=== PATIENT | female | born 1955 | race Caucasian/White ===

== ENCOUNTER → 2019-09-22 17:04 | Outpatient (BNVA) | payer BC, SELFPAY | PROVIDERS: Family Provider Nurse Practitioner; PCP Nurse Practitioner; Visit Provider Nurse Practitioner Family | DX: E11.9 Type 2 diabetes mellitus without complications (principal); E55.9 Vitamin D deficiency, unspecified; J40 Bronchitis, not specified as acute or chronic; I25.10 Atherosclerotic heart disease of native coronary artery without angina pectoris; E78.5 Hyperlipidemia, unspecified; I10 Essential (primary) hypertension | CPT/HCPCS: 80053; 80061; 82044; 82306; 83036; 85025 ==

== ENCOUNTER 2020-01-11 08:25 | Outpatient (CLI) | payer BC, SELFPAY ==
--- NOTE | 2020-01-11 08:37 | CT_ITS ---
WS: [id number] CT NECK TECHNIQUE: Contrast-enhanced CT of the neck with coronal and sagittal reformatted images. CLINICAL INFORMATION: R SUBMANDIBULAR MASS COMPARISON: None. DLP: 629.[address] scans at [facility] use at least one of these dose optimization techniques: automat ed exposure control; mA and/or kV adjustment per patient size (includes targeted exams where dose is matched to clinical indication); or iterative reconstruction. FINDINGS: Dental artifact significantly degrades images of the tongue base. Heterogeneously enhancing right submandibular space mass posteriorly measuring 1.7 x 2.1 x 3.2 cm AP by transverse by craniocaudal. This is posterior to the right submandibular gland and anterior to the right sternocleidomastoid. Mass lesion demonstrates heterogeneous enhancement with internal low-atte nuation change likely necrosis.Findings are consistent with malignancy. Partially visualized enhancement in the right palatine tonsil only partially evaluated due to dental artifact. Recommend direct visualization. Associated mass effect in the adjacent pharynx with bluntin g of the right vallecula. A few additional enlarged and enhancing right cervical chain lymph nodes level 2, level 3, and jd edwards consultant ior triangle. Additional prominent right supraclavicular and thoracic inlet lymph nodes. No definite left-sided cervical lymphadenopathy. Enlarged lymph nodes in the anterior mediastinumperibronchial and lymph nodes. Enlarged AP window lym ph nodes partially visualized. Largest anterior mediastinal lymph node measuring 13 mm. Mastoid air cells are well aerated. Paranasal sinuses are well aerated. Normal epiglottis. Normal par apharyngeal fat. Normal glottic and subglottic airway. Moderate spondylitic changes cervical spine. D isc osteophyte complex C4-5 with moderate central canal stenosis. Prior sternotomy. CT/CT neck w con* [id number] IMPRESSION: 1. Necrotic heterogeneously enhancing malignant-appearing lymph node/mass in t he right neck posterior submandibular space. Mass measures 2.1 x 1.7 x 3.2 CM. 2. Heterogeneous enhancement partially visualized in the right palatine tonsil fossa extending into the vallecula. Associated [id number]-myla mass effect on th e adjacent pharynx. This is only partially visualized due to dental artifact. R ecommend ENT consultation and direct visualization. 3. Prominent enhancing increased attenuation right cervical chain lymph nodes level 2, level 3, and posterior triangle extending to the thoracic inlet the la rgest measuring 8 to 9 mm suspicious for metastatic disease. 4. No definite enlarged left cervical lymph nodes. 5. Enlarged anterior mediastinal, thoracic inlet, AP window, and paratracheal lymph nodes measuring up to 13 mm partially visualized suspicious for metastati c disease. Chest CT could be obtained for further evaluation.
[2020-01-11 09:11] LABS: Blood Urea Nitrogen 10 mg/dL (8-23); Glomerular Filtration Rate 72.4 mL/min (90-130)
[2020-01-11] MEDS: iohexol 300 mg/mL 100 mL Btl IV (09:24)
== END 2020-01-11 08:26 | disposition home or self-care (01) ==
LOC: RADWPI 08:31 → RAD 08:39
PROVIDERS: Family Provider Nurse Practitioner; PCP Nurse Practitioner; Visit Provider Internal Medicine
DX: R22.1 Localized swelling, mass and lump, neck (principal)
CPT/HCPCS: 36415; 70491; 82565; 84520

== ENCOUNTER → 2020-02-24 11:22 | Outpatient (BNVA) | payer BC, SELFPAY | PROVIDERS: Family Provider Nurse Practitioner; PCP Nurse Practitioner; Visit Provider Nurse Practitioner Family | DX: E11.9 Type 2 diabetes mellitus without complications (principal) | CPT/HCPCS: 80053; 80061; 83036; 85025 ==

== ENCOUNTER → 2020-03-15 10:27 | Outpatient (BNVA) | payer BC, SELFPAY | PROVIDERS: Family Provider Nurse Practitioner; PCP Nurse Practitioner; Visit Provider Nurse Practitioner Family | DX: N30.01 Acute cystitis with hematuria (principal); R35.0 Frequency of micturition | CPT/HCPCS: 80053; 81003; 87077; 87086; 87186 ==

== ENCOUNTER → 2020-08-16 11:16 | Outpatient (BNVA) | payer BC, SELFPAY | PROVIDERS: Family Provider Nurse Practitioner; PCP Nurse Practitioner; Visit Provider Internal Medicine Cardiovascular Disease | DX: E11.65 Type 2 diabetes mellitus with hyperglycemia (principal); Z79.4 Long term (current) use of insulin; E55.9 Vitamin D deficiency, unspecified | CPT/HCPCS: 80053; 80061; 82043; 82306; 83036; 84443; 85025 ==

== ENCOUNTER 2020-09-12 12:26 | Emergency (ER) | payer OTHER, SELFPAY ==
[2020-09-12 12:35] VITALS: BP 113/73; PULSE 72; RESP 14; TEMP 36.7; O2SAT 99; BMI 24.6
--- NOTE | 2020-09-12 15:34 | CT_ITS ---
WS: [id number] CT HEAD NONCONTRAST HISTORY: dizzy TECHNIQUE: Contiguous axial imaging performed through the brain in 2.5 mm imaging. Bone and soft tiss ue windows. Sagittal and coronal reformats reviewed. All CT scans at [facility] use at le ast one of these dose optimization techniques: automated exposure control; mA and/or kV adjustment pe r patient size (includes targeted exams where dose is matched to clinical indication); or iterative r econstruction. DLP: 806.88 mGy.cm COMPARISON: None available. No acute intracranial hemorrhage, midline shift or mass effect. No atrophy or prior infarcts or herniation. Mild chronic microvascular ischemic disease. Ventricles: Normal size with no hydrocephalus. Calcifications in the distal vertebral arteries and intracranial carotid arteries. Paranasal sinuses: As visualized are clear. Mastoid air cells: Well pneumatized. Calvarium and scalp: Skull is intact with no soft tissue edema or swelling. CT/CT head wo con* [id number] IMPRESSION: Negative noncontrast head CT. No acute intracranial hemorrhage or edema. No hydrocephalus.
--- NOTE | 2020-09-12 15:34 | ECG_ITS ---
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1955 Requested By: Svetlana Daniels Order Number: [id number] Reading MD: AVA RICHARDS Measurements Intervals [place] Rate: 69 P: 53 KS: 137 QRS: -19 QRSD: 91 T: 9 QT: 382 QTc: 410 Interpretive Statements SINUS RHYTHM POSSIBLE ANTERIOR MYOCARDIAL INFARCTION , PROBABLY OLD [30 ms Q WAVE IN V3/V4, OR R < 0.2 mV IN V4] No previous ECG available for comparison Electronically Signed On 09-12-2020 19:28:34 CISTERN ROOM WORKING SUPERVISOR by AVA RICHARDS [id number]
--- NOTE | 2020-09-12 15:36 | W.ED.DIZZY ---
HPI - Dizziness General: Chief Complaint: Dizziness Stated Complaint: DIZZY, NAUSEA ONGOING Time Seen by Provider: 09/12/20 12:29 Source: patient Mode of arrival: ambulatory Limitations: no limitations History of Present Illness: HPI Narrative: 64-year-old female who states she has been having dizziness for the last few months. She states that her vertigo is much worse with sudden movements. She states she has had 2 episodes today that is caused her vomiting. She states at rest she has no dizziness. She states this is typically improved with meclizine. She states she is concerned that she had more episodes today than typical. She denies any headache. Patient denies any chest pain. Associated symptoms: Reports nausea and vomiting; Denies chest pain or chills Review of Systems Const: Denies: fever(s), chills, body aches or change in appetite Eyes: Denies: blurry vision or eye discomfort ENMT: Denies: throat pain or dental pain Card: Denies: chest pain Resp: Denies: dyspnea GI: Reports: nausea and vomiting : Denies: dysuria Musc: Denies: neck pain or back pain Skin/Breast: Denies: rash Neuro: Reports: dizziness Psych: Denies: depression Anthony/Lymph: Denies: easy bruising All/Imm: Denies: urticaria PFSH ED PFSH: Medical History CAD (coronary artery disease) Diabetes mellitus Hyperlipidemia Vitamin D deficiency Surgical History Hx of CABG (~2010) Hx of tubal ligation Family History Mother Hypertension Social History Smoking and tobacco status: never smoked Second hand smoke exposure: No Alcohol intake: never Lives independently: Yes Household members: none Housing: House Marital status: / service: No Current occupational status: retired History of recent travel: No Current gender identity: Female Physical Exam Const: COMMON NORMALS: no acute distress, patient oriented x3 and healthy appearing HENMT: COMMON NORMALS: normocephalic and atraumatic HEAD & SCALP: normocephalic and atraumatic Eye: COMMON NORMALS: Equal, round and reactive pupils present and EOMs intact bilaterally PUPIL: Yes Equal, round and reactive pupils present Neck/C-Spine: COMMON NORMALS: full ROM and supple Chest: COMMONS NORMALS: normal inspection of the chest and normal palpation of entire chest wall Resp: COMMON NORMALS: normal respiratory effort, No retractions, No use of accessory muscles and clear to auscultation bilaterally AUSCULTATION: clear to auscultation bilaterally Cardio: COMMON NORMALS: regular rate, regular rhythm and No murmurs present (Cardio) RATE: regular rate RHYTHM: regular rhythm GI: COMMON NORMALS: Normal to inspection, nondistended, normoactive bowel sounds present, Soft to palpation, non-tender and no masses PALPATION: Yes Soft to palpation Extremity: COMMON NORMALS: normal to inspection and full ROM Neuro: COMMON NORMALS: patient oriented x3, moves all extremities and no focal motor deficits Psych: COMMON NORMALS: mental status grossly normal, Normal thought process present and cooperative THOUGHT PROCESS: Normal thought process present Skin: COMMON NORMALS: no rashes or lesions noted and no wounds GENERAL SKIN EXAM: no rashes or lesions noted Course Vital Signs: Vital signs: Vital Signs Temperature 98.0 F 09/12/20 12:35 Pulse Rate 79 09/12/20 18:03 Respiratory Rate 16 09/12/20 16:53 Blood Pressure 154/89 09/12/20 18:03 Pulse Oximetry 98 09/12/20 18:03 MDM - Dizziness MDM Narrative: Medical decision making narrative: Patient presents here with vertigo and does have a urinary tract infection. CT shows no signs of acute stroke and she has no symptoms that are strokelike. Her symptoms are more consistent with a peripheral cause of vertigo. This could be worsened by her UTI as well. We will start her on nausea medicine along with antibiotics. Patient is to return if worsening. Lab Data: Labs: Lab Results 09/12/20 09/12/20 09/12/20 Range/Units 16:25 16:25 16:50 WBC 7.8 (4.0-10.0) 10^3/ uL RBC 4.24 (4.1-5.3) 10^6/u L Hgb 13.1 (11.5-15.3) g/dL Hct 39.8 (37.0-47.0) % MCV 93.9 (81-99) fL MCH 30.9 (28.0-34.0) pg MCHC 32.9 (30.0-36.0) g/dL RDW 12.3 (12.1-15.1) % Plt Count 265 (130-400) 10^3/c mm MPV 9.5 (7.4-10.4) fL Neut % (Auto) 78.0 % Lymph % (Auto) 15.9 % [place] % (Auto) 5.2 % Eos % (Auto) 0.4 % Baso % (Auto) 0.4 % Neut # (Auto) 6.10 (1.8-7.7) 10^3/u L Lymph # (Auto) 1.2 (0.8-4.8) 10^3/u L [place] # (Auto) 0.4 (0.2-0.9) 10^3/u L Eos # (Auto) 0.0 (0.0-0.8) 10^3/u L Baso # (Auto) 0.0 (0.0-0.1) 10^3/u L Nucleated RBC % (a uto) 0 % Nucleated RBCs # 0.0 /100WBC Sodium 138 (136-145) mmol/L Potassium 4.2 (3.5-5.1) mmol/L Chloride 102 (98-107) mmol/L Carbon Dioxide 27 (22-29) mmol/L Anion Gap 13.2 (5-19) BUN 16 (8-23) mg/dL Creatinine 0.7 (0.5-0.9) mg/dL GFR Calculation 84.5 L (90-130) mL/min Glucose 225 H (65-115) mg/dL Calculated Osmolal ity 294 (285-295) mOsm/k g Calcium 9.5 (8.5-10.5) mg/dL Total Bilirubin 0.3 (0.15-1.2) mg/dL AST 30 (0-32) U/L ALT 21 (0-33) U/L Alkaline Phosphata se 93 (35-105) IU/L Total Protein 7.3 (6.6-8.7) g/dL Albumin 4.1 (3.5-5.2) g/dL Globulin 3.2 (1.3-4.6) g/dL Urine Color Yellow (Yellow) Urine Appearance Hazy A (CLEAR) Urine pH 5 (5-7) Ur Specific Gravit y 1.030 (1.005-1.030) Urine Protein Trace (Negative) Urine Glucose (UA) 2+ (Normal) Urine Ketones 1+ H (Negative) Urine Blood Neg (Negative) Urine Nitrate Negative (Negative) Urine Bilirubin 1+ H (Negative) Urine Urobilinogen 1 H (Negative) mg/dL Ur Leukocyte Margarita ase Trace H (Negative) Urine RBC 0-4 H (0-2) /hpf Urine WBC 10-15 H (0-5) /hpf Ur Squamous Epith Cells 0-4 H (0-5) /hpf Amorphous Sediment Not Reportable Urine Bacteria 4+ H (NONE) /hpf Hyaline Casts 0-4 H /lpf Urine Mucus 3+ /hpf Imaging Data^: CT Head: Attestation: I personally reviewed and interpreted this imaging study as follows: Radiologist's impression: [address] [address] [address] Scan Report Signed Patient: Veronika Burnette Unit #: [id number] : 1955 Age/Sex: 64 / F ADM Date: 09/12/20 Loc: ER Room/Bed: Attending Dr: Ordering Provider/Ordering MD: Svetlana Daniels MD Date of Service: 09/12/20 Procedure(s): CT head wo con* [id number] Accession Number(s): [id number] Report Number: [id number] WS: [id number] CT HEAD NONCONTRAST HISTORY: dizzy TECHNIQUE: Contiguous axial imaging performed through the brain in 2.5 mm imaging. Bone and soft tissue windows. Sagittal and coronal reformats reviewed. All CT scans at [facility] use at least one of these dose optimization techniques: automated exposure control; mA and/or kV adjustment per patient size (includes targeted exams where dose is matched to clinical indication); or iterative reconstruction. DLP: 806.88 mGy.cm COMPARISON: None available. No acute intracranial hemorrhage, midline shift or mass effect. No atrophy or prior infarcts or herniation. Mild chronic microvascular ischemic disease. Ventricles: Normal size with no hydrocephalus. Calcifications in the distal vertebral arteries and intracranial carotid arteries. Paranasal sinuses: As visualized are clear. Mastoid air cells: Well pneumatized. Calvarium and scalp: Skull is intact with no soft tissue edema or swelling. CT/CT head wo con* [id number] IMPRESSION: Negative noncontrast head CT. No acute intracranial hemorrhage or edema. No hydrocephalus. EKG Data^: EKG 1: Attestation: I personally reviewed and interpreted this EKG as follows: EKG interpretation date: 09/12/20 EKG interpretation time: 16:15 Interpretation: nsr hr [address] or t wave abnormalities qrs 91 qtc 401 Discharge Plan Discharge Patient Disposition: Home Clinical Impression: Vertigo Acute cystitis Qualifiers: Hematuria presence: without hematuria Qualified Code(s): N30.00 - Acute cystitis without hematuria Condition: Stable Prescriptions: New Keflex 500 mg capsule 500 mg PO Q6H 7 Days Qty: 28 RF: 0 ondansetron 4 mg tablet,disintegrating 4 mg PO TID PRN (Reason: nausea and vomiting) Qty: 14 RF: 0 No Action furosemide 20 mg tablet 20 mg PO DAILY PRN (Reason: edema) RF: 0 aspirin [Adult Low Dose Aspirin] 81 mg tablet,delayed release (DR/EC) 162 mg PO DAILY RF: 0 clopidogrel [Plavix] 75 mg tablet 75 mg PO DAILY Qty: 90 RF: 0 Farxiga 10 mg tablet 10 mg PO QAM Qty: 90 RF: 0 ergocalciferol (vitamin D2) [Vitamin D2] 1,250 mcg (50,000 unit) capsule 1,250 mcg PO .weekly Qty: 12 RF: 0 escitalopram oxalate 5 mg tablet See Rx Instructions .ROUTE .COMPLEX Qty: 90 RF: 0 Repatha SureClick 140 mg/mL pen injector 140 mg SUBCUT .EVERY 2 WEEKS Qty: 2 RF: 11 famotidine [Pepcid] 20 mg tablet 20 mg PO BID Qty: 180 RF: 0 glipizide 5 mg tablet See Rx Instructions .ROUTE .COMPLEX 90 Days Qty: 180 RF: 0 Lantus Solostar U-100 Insulin 100 unit/mL (3 mL) insulin pen 10 unit SUBCUT DAILY 90 Days Qty: 15 RF: 0 lisinopril 2.5 mg tablet See Rx Instructions .ROUTE .COMPLEX Qty: 90 RF: 0 metformin 1,000 mg tablet See Rx Instructions .ROUTE .COMPLEX Qty: 180 RF: 0 Discharge Orders: Discharge ED (Routine); Ordered 09/12/20 Ordered By: Svetlana Daniels Discharge Diet: Advance as tolerated Discharge Activity: Resume usual activity Patient Instructions: Vertigo (ED) Coding Level of Care Code ED Airplane Pilot Supervisor for Morena Fwdisha Exam Comprehensive
[2020-09-12] MEDS: meclizine 25 mg tablet 50 MG PO (15:40)
[2020-09-12 16:27] VITALS: BP 124/54; PULSE 71; O2SAT 100
[2020-09-12] MEDS: sodium chloride 0.9% 1,000 ML 999 ML IV (16:34)
[2020-09-12 16:36] LABS: Basophils % 0.4 %; Eosinophils % 0.4 %; Hematocrit 39.8 % (37.0-47.0); Hemoglobin 13.1 g/dL (11.5-15.3); Lymphocytes # 1.2 10^3/uL (0.8-4.8); Lymphocytes % 15.9 %; Mean Corpuscular HGB Conc 32.9 g/dL (30.0-36.0); Mean Corpuscular Hemoglobin 30.9 pg (28.0-34.0); Mean Corpuscular Volume 93.9 fL (81-99); Mean Platelet Volume 9.5 fL (7.4-10.4); Monocytes # 0.4 10^3/uL (0.2-0.9); Monocytes % 5.2 %; Nucleated Red Blood Cells % 0 %; Platelet Count 265 10^3/cmm (130-400); Red Blood Count 4.24 10^6/uL (4.1-5.3); Red Cell Distribution Width 12.3 % (12.1-15.1); White Blood Count 7.8 10^3/uL (4.0-10.0)
[2020-09-12] MEDS: ondansetron 2 mg/ML SDV 2 mL 4 MG IVP (16:47)
[2020-09-12 16:53] VITALS: BP 144/67; PULSE 69; RESP 16; O2SAT 94
[2020-09-12 17:10] LABS: Alanine Aminotransferase 21 U/L (0-33); Albumin Level 4.1 g/dL (3.5-5.2); Alkaline Phosphatase 93 IU/L (35-105); Anion Gap 13.2 (5-19); Aspartate Amino Transferase 30 U/L (0-32); Blood Urea Nitrogen 16 mg/dL (8-23); Calcium 9.5 mg/dL (8.5-10.5); Carbon Dioxide 27 mmol/L (22-29); Chloride 102 mmol/L (98-107); Globulin 3.2 g/dL (1.3-4.6); Glomerular Filtration Rate 84.5 mL/min (90-130); Glucose 225 mg/dL (65-115); Osmolality Calculated 294 mOsm/kg (285-295); Potassium 4.2 mmol/L (3.5-5.1); Sodium 138 mmol/L (136-145); Total Bilirubin 0.3 mg/dL (0.15-1.2); Total Protein 7.3 g/dL (6.6-8.7)
[2020-09-12 17:12] VITALS: BP 146/76; PULSE 74; O2SAT 98
[2020-09-12 17:29] LABS: Glucose Urine UA 2+ (Normal); Protein Urine Trace (Negative); Urine Appearance Hazy (CLEAR); Urine Color Yellow (Yellow); pH Urine 5 (5-7)
[2020-09-12 17:30] LABS: Add Urine Microscopic? YES; Bilirubin Urine 1+ (Negative); Blood Urine Neg (Negative); Ketones Urine 1+ (Negative); Leukocyte Esterase Urine Trace (Negative); Nitrate Urine Negative (Negative); Urobilinogen Urine 1 mg/dL (Negative)
[2020-09-12 17:34] LABS: Mucus Urine 3+ /hpf
[2020-09-12 17:35] LABS: RBC Urine 0-4 /hpf (0-2)
[2020-09-12 17:36] LABS: Add Urine Culture? Yes; Bacteria Urine 4+ /hpf; Hyaline Casts Urine 0-4 /lpf; Squamous Epithelial Cell Urine 0-4 /hpf (0-5)
[2020-09-12] MEDS: cefTRIAXone 1,000 MG in sodium chloride 0.9% (plus) 50 ML 100 MG IV (18:01)
[2020-09-12 18:03] VITALS: BP 154/89; PULSE 79; O2SAT 98
--- NOTE | 2020-09-13 11:23 | DCPLANNER ---
clearance center manager had message to speak with patient about home health options. clearance center manager called phone number [phone], unable to speak with patient at this time, a voicemail was left patient to return rn case management phone call.
== END 2020-09-12 18:49 | disposition home or self-care (01) ==
PROVIDERS: Family Medicine; Emergency Provider Emergency Medicine
DX: R42 Dizziness and giddiness (principal); N30.00 Acute cystitis without hematuria; Z79.02 Long term (current) use of antithrombotics/antiplatelets; Z79.82 Long term (current) use of aspirin; Z79.4 Long term (current) use of insulin; I25.10 Atherosclerotic heart disease of native coronary artery without angina pectoris; E11.9 Type 2 diabetes mellitus without complications; E78.5 Hyperlipidemia, unspecified; Z95.1 Presence of aortocoronary bypass graft
CPT/HCPCS: 12345; 70450; 80053; 81001; 85025; 87086; 93005; 96365; 96375; 99283; J0696; J2405; J7030; J8597

== ENCOUNTER 2020-10-11 14:59 | Outpatient (CLI) | payer OTHER, SELFPAY ==
--- NOTE | 2020-10-11 15:04 | CT_ITS ---
WS: [id number] CT NECK WITH CONTRAST HISTORY: NECK MASS TECHNIQUE: Contiguous 5 mm axial images are performed through the neck with intravenous contrast. Sag ittal and coronal reformats are also submitted. All CT scans at [facility] use at least o ne of these dose optimization techniques: automated exposure control; mA and/or kV adjustment per pat ient size (includes targeted exams where dose is matched to clinical indication); or iterative recons truction. CONTRAST: CONTRAST: Omnipaque 300; 95 mL IV. DLP: 2421.05 mGycm COMPARISON: 01/11/2020 Increased in size appreciated described enhancing mass centered in the RIGHT palatine tonsil extendin g into the RIGHT vallecula. Mass now measures 2.4 x 1.0 cm and extends over length of 2.7 cm. Previously described mass in the RIGHT submandibular space has increased in size. This isn't a chroni c mass extending over length of 3.0 cm x 2.7 x 2.2 cm. Enhancement with areas of necrosis. This mass abuts the posterior submandibular gland and the adjacent sternocleidomastoid muscle. There may be inv asion into the adjacent soft tissue structures. There are additional small indeterminate RIGHT cervic al chain lymph nodes. These lymph nodes are rounded but not increased in size at level 2, level 3 and the posterior triangle. There is a new necrotic lymph node at level IIa on the LEFT with a maximum d iameter of 1.0 cm. There are additional smaller, subcentimeter cervical chain lymph nodes. Thyroid gland is negative. No parotid mass. Degenerative cervical spondylosis. Visualized portions of the skull base demonstrate no abnormalities. Orbits and globes are within norm al limits. No soft tissue masses. Visualized paranasal sinuses and mastoid air cells are normal. Lung apices are clear. Again noted are small, subcentimeter mediastinal and hilar lymph nodes measuri ng up to 9 mm in diameter. These lymph nodes are smaller as compared to the prior examination from 01/11/2020. CT/CT neck w con* [id number] IMPRESSION: 1. Increase in size of the RIGHT palatine tonsil and vallecular mass since 01/10. Highly suspicious for neoplasm. Mass now measures 2.4 x 1.0 x 2.7 cm. 2. Bilateral necrotic lymphadenopathy. The largest lymph node in the RIGHT sub mandibular space was described on 01/11/2020. This mass which is probably a metas tatic lymph node has increased in size now measuring 3.0 x 2.7 x 2.2 cm. Additi onal necrotic neoplastic lymph node at level 2 on the LEFT. There are smaller b ilateral cervical chain lymph nodes which are less than a centimeter but may al so be malignant.
[2020-10-11] MEDS: iohexol 300 mg/mL 100 mL Btl IV (15:45)
== END 2020-10-11 15:00 | disposition home or self-care (01) ==
PROVIDERS: PCP Nurse Practitioner Family; Visit Provider Otolaryngology
DX: R22.1 Localized swelling, mass and lump, neck (principal)
CPT/HCPCS: 70491; Q9967

== ENCOUNTER → 2020-10-13 14:53 | Outpatient (BNVA) | payer OTHER, SELFPAY | PROVIDERS: PCP Nurse Practitioner Family; Visit Provider Otolaryngology | DX: Z20.828 Contact with and (suspected) exposure to other viral communicable diseases (principal); D49.0 Neoplasm of unspecified behavior of digestive system | CPT/HCPCS: 87635 ==

== ENCOUNTER 2020-10-18 00:13 | Emergency (ER) | payer OTHER, SELFPAY ==
[2020-10-18 00:18] VITALS: BP 174/85; PULSE 81; RESP 18; TEMP 36; O2SAT 98; BMI 24.4
--- NOTE | 2020-10-18 00:18 | ECG_ITS ---
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 Measurements Intervals [place] Rate: 80 P: 50 [place]: 128 QRS: -18 QRSD: 98 T: 29 QT: 359 QTc: 416 Interpretive Statements SINUS RHYTHM Compared to ECG 09/12/2020 16:15:33 Myocardial infarct finding no longer present Electronically Signed On 10-19-2020 7:37:13 CDT by Ernestine Munson M.D. [id number]
--- NOTE | 2020-10-18 00:19 | CTR_ITS ---
PROCEDURE INFORMATION: Exam: CT Head Without Contrast Exam date and time: 10/18/2020 12:37 AM Age: 65 years old Clinical indication: Altered mental status/memory loss; Patient HX: Multiple falls, weakness; Additional info: CVA TECHNIQUE: Imaging protocol: Computed tomography of the head without contrast. Radiation optimization: All CT scans at this facility use at least one of these dose optimization techniques: automated exposure control; mA and/or kV adjustment per patient size (includes targeted exams where dose is matched to clinical indication); or iterative reconstruction. COMPARISON: CT head wo con* [id number] 09/12/2020 3:58 PM RADIATION DOSE METRICS: Total DLP (mGy-cm): 800.48 FINDINGS: Brain: There is small old lacunar infarct in the right cerebellar hemisphere. There is small old lacunar infarct in the left subinsular region. There is moderate cortical atrophy. Low-density changes in the white matter are consistent with nonspecific small vessel chronic ischemic change. There is no intracranial mass, hemorrhage or edema. Cerebral ventricles: No ventriculomegaly. Bones/joints: Unremarkable. No acute fracture. Paranasal sinuses: Visualized sinuses are unremarkable. No fluid levels. Mastoid air cells: Visualized mastoid air cells are well aerated. Soft tissues: Unremarkable. CT/CT head wo con* [id number] IMPRESSION: 1. Atrophy and old lacunar disease. 2. No acute intracranial finding. 3. No significant change from 09/12/2020 Radiation Dose CTDIVOL = (mGy): DLP = 800.48 (mGy-cm)
--- NOTE | 2020-10-18 00:20 | W.ED.GENADLT ---
HPI - General Adult General: Chief complaint: Weakness Stated complaint: WEAKNESS Time Seen by Provider: 10/18/20 00:15 Source: patient, family and RN notes reviewed Mode of arrival: EMS Limitations: no limitations History of Present Illness: HPI narrative: This patient is a 65-year-old female who presents to the emergency department complaining of falling frequently over the past several days. Patient states when she gets up and tries to walk she gets real dizzy. Patient denies any pain moves all extremities without difficulty. Blood pressure stable and denies having history of blood pressure issues. Patient has had ongoing issues with a tonsil that is post to be biopsied. Patient denies taking any medications for pain. Will do medical evaluation treat as needed. Patient is alert and oriented x3 does not appear to be acutely sick. Onset (ago): day(s) (5) Pain Consistency: intermittent Associated symptoms: Deny chest pain, dyspnea, headache(s), nausea, rash, palpitations or vomiting Review of Systems General: Reports: 10 or more systems reviewed and unremarkable except in HPI and below Const: Denies: fever(s), chills, body aches or fatigue Eyes: Denies: change in vision or blurry vision ENMT: Denies: throat pain, hoarseness or mouth pain Card: Denies: chest pain or palpitations Resp: Denies: dyspnea GI: Denies: nausea or vomiting : Reports: flank pain; Denies: difficulty voiding, dysuria, urinary frequency, urinary urgency or urinary hesitancy Musc: Denies: neck pain, back pain, extremity pain, extremity swelling, joint pain, joint swelling, joint redness, joint warmth or limited range of motion Skin/Breast: Denies: rash Neuro: Reports: frequent falls and dizziness; Denies: headache(s) Psych: Denies: anxiety or depression PFSH ED PFSH: Medical History CAD (coronary artery disease) Diabetes mellitus Hyperlipidemia Vitamin D deficiency Surgical History Hx of CABG (~2010) Hx of tubal ligation Family History Mother Hypertension Social History Smoking and tobacco status: never smoked Second hand smoke exposure: No Alcohol intake: never Lives independently: Yes Household members: none Housing: House Marital status: / service: No Current occupational status: retired History of recent travel: No Current gender identity: Female Physical Exam Const: COMMON NORMALS: no acute distress, average body habitus, patient oriented x3, no limitations, healthy appearing, alert and well nourished HENMT: COMMON NORMALS: normocephalic, atraumatic, external ears normal, EAC's normal, TM's normal bilaterally, Normal external nose present and Normal nasal mucous membranes and turbinates present HEAD & SCALP: normocephalic and atraumatic NOSE: Normal external nose present and Normal nasal mucous membranes and turbinates present EXTERNAL EAR: Yes external ears normal EXTERNAL AUDITORY CANAL: EAC's normal TYMPANIC MEMBRANE: TM's normal bilaterally Neck/C-Spine: COMMON NORMALS: full ROM, no lymphadenopathy, supple, no meningeal signs, no JVD, Thyroid normal and No carotid bruits THYROID: Thyroid normal Chest: COMMONS NORMALS: normal inspection of the chest, normal palpation of entire chest wall, normal inspection of the breasts and normal palpation of the breasts Breast/axilla inspection: Yes normal inspection of the breasts BREAST/AXILLA PALPATION: Yes normal palpation of the breasts Resp: COMMON NORMALS: normal respiratory effort, No retractions, No use of accessory muscles, clear to auscultation bilaterally and percussion normal AUSCULTATION: clear to auscultation bilaterally PERCUSSION: percussion normal Cardio: COMMON NORMALS: no JVD, regular rate, regular rhythm, S1 normal heart sound present, S2 normal heart sound present, No gallops present (Cardio), No clicks present (Cardio), No murmurs present (Cardio), No rub (Cardio) and Peripheral pulses 2+ throughout RATE: regular rate RHYTHM: regular rhythm HEART SOUNDS: S1 normal heart sound present and S2 normal heart sound present PERIPHERAL PULSES: Peripheral pulses 2+ throughout GI: COMMON NORMALS: Normal to inspection, nondistended, normoactive bowel sounds present, Soft to palpation, non-tender, No hepatosplenomegaly present, no masses and no bruits PALPATION: Yes Soft to palpation and Yes No hepatosplenomegaly present Back/Pelvis: COMMON NORMALS: thoracic and lumbar spine normal to inspection, no thoracic nor lumbar tenderness, thoraco-lumbar ROM normal and straight leg raise negative bilaterally Extremity: COMMON NORMALS: normal to inspection, full ROM, capillary refill normal, no joint enlargement, no clubbing, cyanosis or edema, no calf tenderness and no pedal edema Neuro: COMMON NORMALS: patient oriented x3 SENSORIUM/ORIENTATION: Yes alert MENINGEAL SIGNS: Yes no meningeal signs Course Reevaluation(s): Reevaluation #1: This patient is doing well and has no complaints. Has had no reported dizziness. Blood pressures remain stable. Chronic conditions are normal for this patient. I did discuss at length with patient and family about findings. Concerning for her falls. Patient will be discharged home with family. Will write a prescription for meclizine. Should follow up with primary care physician in 2 to 3 days. Time: 02:37 Vital Signs: Vital signs: Vital Signs Temperature 96.8 F L 10/18/20 00:18 Pulse Rate 80 10/18/20 02:00 Respiratory Rate 13 10/18/20 02:00 Blood Pressure 154/78 10/18/20 02:00 Pulse Oximetry 97 10/18/20 02:00 [facility] - General Adult Lab Data: Attestation: I reviewed the patient's lab results. Labs: Lab Results 10/18/20 10/18/20 10/18/20 Range/Units 00:41 00:41 00:41 WBC 7.8 (4.0-10.0) 10^3/ uL RBC 4.27 (4.1-5.3) 10^6/u L Hgb 13.5 (11.5-15.3) g/dL Hct 40.3 (37.0-47.0) % MCV 94.4 (81-99) fL MCH 31.6 (28.0-34.0) pg MCHC 33.5 (30.0-36.0) g/dL RDW 12.8 (12.1-15.1) % Plt Count 325 (130-400) 10^3/c mm MPV 9.4 (7.4-10.4) fL Neut % (Auto) 67.3 % Lymph % (Auto) 24.4 % Tate % (Auto) 5.9 % Eos % (Auto) 1.7 % Baso % (Auto) 0.4 % Neut # (Auto) 5.27 (1.8-7.7) 10^3/u L Lymph # (Auto) 1.9 (0.8-4.8) 10^3/u L Tate # (Auto) 0.5 (0.2-0.9) 10^3/u L Eos # (Auto) 0.1 (0.0-0.8) 10^3/u L Baso # (Auto) 0.0 (0.0-0.1) 10^3/u L Nucleated RBC % (a uto) 0 % Nucleated RBCs # 0.0 /100WBC APTT 24.0 (23.9-36.7) SECO NDS Sodium 140 (136-145) mmol/L Potassium 4.1 (3.5-5.1) mmol/L Chloride 102 (98-107) mmol/L Carbon Dioxide 28 (22-29) mmol/L Anion Gap 14.1 (5-19) BUN 16 (8-23) mg/dL Creatinine 0.7 (0.5-0.9) mg/dL GFR Calculation 84.2 L (90-130) mL/min Glucose 190 H (65-115) mg/dL Calculated Osmolal ity 296 H (285-295) mOsm/k g Calcium 9.8 (8.5-10.5) mg/dL Total Bilirubin 0.2 (0.15-1.2) mg/dL AST 36 H (0-32) U/L ALT 29 (0-33) U/L Alkaline Phosphata se 127 H (35-105) IU/L NT-Pro-B Natriuret Pep 321 H (0-125) pg/mL Total Protein 7.8 (6.6-8.7) g/dL Albumin 4.2 (3.5-5.2) g/dL Globulin 3.6 (1.3-4.6) g/dL Urine Color (Yellow) Urine Appearance (CLEAR) Urine pH (5-7) Ur Specific Gravit y (1.005-1.030) Urine Protein (Negative) Urine Glucose (UA) (Normal) Urine Ketones (Negative) Urine Blood (Negative) Urine Nitrate (Negative) Urine Bilirubin (Negative) Urine Urobilinogen (Negative) mg/dL Ur Leukocyte Margarita ase (Negative) Urine Opiates Scre en (Negative) ng/mL Ur Barbiturates Sc reen (Negative) ng/mL Ur Phencyclidine S crn (Negative) ng/mL Ur Amphetamines Sc reen (Negative) ng/mL U Benzodiazepines Scrn (Negative) ng/mL Urine Cocaine Scre en (Negative) ng/mL U Marijuana (THC) Screen (Negative) ng/mL 10/18/20 10/18/20 Range/Units 02:10 02:10 WBC (4.0-10.0) 10^3/ uL RBC (4.1-5.3) 10^6/u L Hgb (11.5-15.3) g/dL Hct (37.0-47.0) % MCV (81-99) fL MCH (28.0-34.0) pg MCHC (30.0-36.0) g/dL RDW (12.1-15.1) % Plt Count (130-400) 10^3/c mm MPV (7.4-10.4) fL Neut % (Auto) % Lymph % (Auto) % Tate % (Auto) % Eos % (Auto) % Baso % (Auto) % Neut # (Auto) (1.8-7.7) 10^3/u L Lymph # (Auto) (0.8-4.8) 10^3/u L Tate # (Auto) (0.2-0.9) 10^3/u L Eos # (Auto) (0.0-0.8) 10^3/u L Baso # (Auto) (0.0-0.1) 10^3/u L Nucleated RBC % (a uto) % Nucleated RBCs # /100WBC APTT (23.9-36.7) SECO NDS Sodium (136-145) mmol/L Potassium (3.5-5.1) mmol/L Chloride (98-107) mmol/L Carbon Dioxide (22-29) mmol/L Anion Gap (5-19) BUN (8-23) mg/dL Creatinine (0.5-0.9) mg/dL GFR Calculation (90-130) mL/min Glucose (65-115) mg/dL Calculated Osmolal ity (285-295) mOsm/k g Calcium (8.5-10.5) mg/dL Total Bilirubin (0.15-1.2) mg/dL AST (0-32) U/L ALT (0-33) U/L Alkaline Phosphata se (35-105) IU/L NT-Pro-B Natriuret Pep (0-125) pg/mL Total Protein (6.6-8.7) g/dL Albumin (3.5-5.2) g/dL Globulin (1.3-4.6) g/dL Urine Color Yellow (Yellow) Urine Appearance Clear (CLEAR) Urine pH 5 (5-7) Ur Specific Gravit y 1.020 (1.005-1.030) Urine Protein Neg (Negative) Urine Glucose (UA) 4+ H (Normal) Urine Ketones Negative (Negative) Urine Blood Neg (Negative) Urine Nitrate Negative (Negative) Urine Bilirubin Neg (Negative) Urine Urobilinogen Norm (Negative) mg/dL Ur Leukocyte Margarita ase Negative (Negative) Urine Opiates Scre en Negative (Negative) ng/mL Ur Barbiturates Sc reen Negative (Negative) ng/mL Ur Phencyclidine S crn Negative (Negative) ng/mL Ur Amphetamines Sc reen Negative (Negative) ng/mL U Benzodiazepines Scrn Negative (Negative) ng/mL Urine Cocaine Scre en Negative (Negative) ng/mL U Marijuana (THC) Screen Negative (Negative) ng/mL Imaging Data^: CT Head: Attestation: I personally reviewed and interpreted this imaging study as follows: Radiologist's impression: Negative for any acute findings. Did show some old lacunar infarcts. EKG Data^: EKG 1: Attestation: I personally reviewed and interpreted this EKG as follows: EKG interpretation date: 10/18/20 EKG interpretation time: 00:27 Prior EKG tracings: available for review Interpretation: Normal sinus rhythm heart rate 80 normal EKG Computer generated interpretation: Head CT 10/18/20 00:19 IMPRESSION: 1. Atrophy and old lacunar disease. 2. No acute intracranial finding. 3. No significant change from 09/12/2020 Radiation Dose CTDIVOL = (mGy): DLP = 800.48 (mGy-cm) Discharge Plan Discharge Patient Disposition: Home Clinical Impression: Vertigo, Fall Condition: Stable Prescriptions: No Action furosemide 20 mg tablet 20 mg PO DAILY PRN (Reason: edema) RF: 0 aspirin [Adult Low Dose Aspirin] 81 mg tablet,delayed release (DR/EC) 162 mg PO DAILY RF: 0 clopidogrel [Plavix] 75 mg tablet 75 mg PO DAILY Qty: 90 RF: 0 Farxiga 10 mg tablet 10 mg PO QAM Qty: 90 RF: 0 ergocalciferol (vitamin D2) [Vitamin D2] 1,250 mcg (50,000 unit) capsule 1,250 mcg PO .weekly Qty: 12 RF: 0 escitalopram oxalate 5 mg tablet See Rx Instructions .ROUTE .COMPLEX Qty: 90 RF: 0 Repatha SureClick 140 mg/mL pen injector 140 mg SUBCUT .EVERY 2 WEEKS Qty: 2 RF: 11 famotidine [Pepcid] 20 mg tablet 20 mg PO BID Qty: 180 RF: 0 glipizide 5 mg tablet See Rx Instructions .ROUTE .COMPLEX 90 Days Qty: 180 RF: 0 Lantus Solostar U-100 Insulin 100 unit/mL (3 mL) insulin pen 10 unit SUBCUT DAILY 90 Days Qty: 15 RF: 0 lisinopril 2.5 mg tablet See Rx Instructions .ROUTE .COMPLEX Qty: 90 RF: 0 metformin 1,000 mg tablet See Rx Instructions .ROUTE .COMPLEX Qty: 180 RF: 0 meclizine 25 mg tablet 25 mg PO TID PRN (Reason: dizziness) Qty: 90 RF: 0 ondansetron 4 mg tablet,disintegrating 4 mg PO TID PRN (Reason: nausea and vomiting) Qty: 30 RF: 0 Discharge Orders: Discharge ED (Routine); Ordered 10/18/20 Ordered By: Marino Figueroa Referrals: Johanne Morales FNP [Primary Care Provider] - Discharge Diet: Advance as tolerated Discharge Activity: Resume usual activity Patient Instructions: Opioid Safety Activity Restrictions/Additional Instructions: Continue with home meclizine as previously prescribed for your chronic dizziness/vertigo. Encourage p.o. fluids. Be careful when coming to standing position for risk of falls becoming dizzy. 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
[2020-10-18 00:54] LABS: Basophils % 0.4 %; Eosinophils # 0.1 10^3/uL (0.0-0.8); Eosinophils % 1.7 %; Hematocrit 40.3 % (37.0-47.0); Hemoglobin 13.5 g/dL (11.5-15.3); Lymphocytes # 1.9 10^3/uL (0.8-4.8); Lymphocytes % 24.4 %; Mean Corpuscular HGB Conc 33.5 g/dL (30.0-36.0); Mean Corpuscular Hemoglobin 31.6 pg (28.0-34.0); Mean Corpuscular Volume 94.4 fL (81-99); Mean Platelet Volume 9.4 fL (7.4-10.4); Monocytes # 0.5 10^3/uL (0.2-0.9); Monocytes % 5.9 %; Neutrophils # 5.27 10^3/uL (1.8-7.7); Neutrophils % 67.3 %; Nucleated Red Blood Cells % 0 %; Platelet Count 325 10^3/cmm (130-400); Red Blood Count 4.27 10^6/uL (4.1-5.3); Red Cell Distribution Width 12.8 % (12.1-15.1); White Blood Count 7.8 10^3/uL (4.0-10.0)
[2020-10-18] MEDS: sodium chloride 0.9% 1,000 ML 999 ML IV (00:56)
[2020-10-18 01:20] LABS: Alanine Aminotransferase 29 U/L (0-33); Albumin Level 4.2 g/dL (3.5-5.2); Alkaline Phosphatase 127 IU/L (35-105); Anion Gap 14.1 (5-19); Aspartate Amino Transferase 36 U/L (0-32); Blood Urea Nitrogen 16 mg/dL (8-23); Calcium 9.8 mg/dL (8.5-10.5); Carbon Dioxide 28 mmol/L (22-29); Chloride 102 mmol/L (98-107); Globulin 3.6 g/dL (1.3-4.6); Glomerular Filtration Rate 84.2 mL/min (90-130); Glucose 190 mg/dL (65-115); NT Pro B Type Natriuretic Pept 321 pg/mL (0-125); Osmolality Calculated 296 mOsm/kg (285-295); Potassium 4.1 mmol/L (3.5-5.1); Sodium 140 mmol/L (136-145); Total Bilirubin 0.2 mg/dL (0.15-1.2); Total Protein 7.8 g/dL (6.6-8.7)
[2020-10-18 01:22] VITALS: BP 174/85; PULSE 85; RESP 16; O2SAT 97
[2020-10-18 01:30] VITALS: BP 174/85; PULSE 74; RESP 14; O2SAT 97
[2020-10-18 01:33] VITALS: BP 174/85; BP 182/95; BP 185/94; PULSE 80; PULSE 81; PULSE 85
--- NOTE | 2020-10-18 01:45 | PC.NURSE ---
Helped patient get up to bedside commode, Patient unable to pee at this time.
[2020-10-18 02:00] VITALS: BP 154/78; PULSE 80; RESP 13; O2SAT 97
[2020-10-18 02:15] LABS: Add Urine Microscopic? NO
[2020-10-18 02:18] LABS: Protein Urine Neg (Negative); Urine Appearance Clear (CLEAR); Urine Color Yellow (Yellow); pH Urine 5 (5-7)
[2020-10-18 02:19] LABS: Bilirubin Urine Neg (Negative); Blood Urine Neg (Negative); Glucose Urine UA 4+ (Normal); Ketones Urine Negative (Negative); Leukocyte Esterase Urine Negative (Negative); Nitrate Urine Negative (Negative); Urobilinogen Urine Norm (Negative)
[2020-10-18 02:25] LABS: Amphetamines Screen Urine Negative (Negative); Barbiturates Screen Urine Negative (Negative); Benzodiazepines Screen Urine Negative (Negative); Cocaine Screen Urine Negative (Negative); Opiate Screen Urine Negative (Negative); PCP Screen Urine Negative (Negative); THC Screen Urine Negative (Negative)
[2020-10-18] MEDS: meclizine 25 mg tablet PO (02:50)
[2020-10-18 03:11] VITALS: BP 172/89; PULSE 86; RESP 13; TEMP 36.4; O2SAT 97
== END 2020-10-18 03:15 | disposition home or self-care (01) ==
PROVIDERS: Emergency Provider Emergency Medicine; PCP Nurse Practitioner Family
DX: R42 Dizziness and giddiness (principal); W19.XXXA Unspecified fall, initial encounter; Z79.82 Long term (current) use of aspirin; Z79.02 Long term (current) use of antithrombotics/antiplatelets; Z79.4 Long term (current) use of insulin; I25.10 Atherosclerotic heart disease of native coronary artery without angina pectoris; E11.9 Type 2 diabetes mellitus without complications; E78.5 Hyperlipidemia, unspecified
CPT/HCPCS: 70450; 80053; 80306; 81003; 83880; 85025; 85730; 93005; 96360; 99283; J7030; J8597

== ENCOUNTER 2020-10-19 06:38 | Day surgery (SDC) | payer OTHER, SELFPAY ==
[2020-10-18 08:54] VITALS: BMI 24.4
[2020-10-19] VITALS (24 sets, daily range): BP systolic 143–191; BP diastolic 85–120; PULSE 79–192; RESP 7–23; TEMP 36.1–36.4; O2SAT 90–100
[2020-10-19] MEDS: sodium chloride 0.9% 1,000 ML 30 ML IV (07:00)
[2020-10-19 07:06] LABS: Glucose Point of Care 170 mg/dL (70-110)
--- NOTE | 2020-10-19 07:52 | ANES.PREANE2 ---
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 Proposed Procedure: Operation Date: 10/19/20 08:00 Proposed Procedures p EXCISION OF LESION OF PHARYNX 93901 D49.0(Not Applicable) - Jalen Bradshaw MD Was Beta Enrrique taken within 24 hours: N/A Was Clonidine taken within 24 hours: N/A Last intake: Intake Last Liquid Date 10/18/20 Last Liquid Time 21:30 Last Solid Date 10/18/20 Last Solid Time 21:30 Social: Social History: No alcohol and No tobacco Exam: Pre-Anes Outpt Exam: alert, oriented x 3, clear to auscultation bilaterally and regular rate & rhythm Airway: Submandibular: WNL Cervical ROM: WNL MP: 2 Dentition: Chipped CV/HEM: CV/HEM: CAD (s/p CABG) and HTN Metabolic: Metabolic: DM Anesthetic Plan: ASA status: 3 Anesthesia: General Risk of > 500 ml blood loss (7ml/kg in children): No PFSH Anesthesia PFSH: Medical History CAD (coronary artery disease) Diabetes mellitus Hyperlipidemia Vitamin D deficiency Surgical History Hx of CABG (~2010) Hx of tubal ligation Family History Mother Hypertension Social History Smoking and tobacco status: never smoked Second hand smoke exposure: No Alcohol intake: never Lives independently: Yes Household members: none Housing: House Marital status: / service: No Current occupational status: retired History of recent travel: No Current gender identity: Female Data Anesthesia Other Labs: Laboratory Results - last 48 hr 10/19/20 07:03 POC Glucose 170 H Cardiac Studies: No Data to Display
--- NOTE | 2020-10-19 09:05 | W.PM.OPSUD ---
Surgery/Procedure H&P Update DATE OF PROCEDURE: October 19, 2020 DATE H&P PERFORMED: 10/13/20 H&P UPDATE INFORMATION: I have reviewed H&P completed within last 30 days, I have examined patient prior to procedure and No changes to prior documentation PREOP DIAGNOSIS: Right tonsillar neoplasm with metastasis PLANNED PROCEDURE: Operation Date: 10/19/20 08:00 Proposed Procedures p EXCISION OF LESION OF PHARYNX 75961 D49.0(Not Applicable) - Jalen Bradshaw MD
--- NOTE | 2020-10-19 10:43 | P.OP_ITS ---
Operative Report Date of procedure: October 19, 2020 Pre-op Diagnosis: Right tonsillar neoplasm with metastasis Post-op diagnosis: same Post-op Findings: Deep hard ulcerative mass involving right tonsil with metastasis to right neck. Procedure Done: Right tonsillectomy Specimens removed/disposition: Upper tonsil area sent for frozen section. Lower tonsillar segment sent for permanent section. Uvula. Surgeon: Jalen Bradshaw Anesthesia: General Estimated blood loss (mL): 30 Complications: No complications Findings: The patient's right tonsil has a mass found on palpation and examination and confirmed on CAT scan. Patient also has mass in right neck as well as mediastinal lymphadenopathy. This was felt to likely be a squamous cell carcinoma but could potentially be lymphoma. Disposition: PACU Brief History: 65-year-old female patient found to have a right tonsillar lesion certainly consistent with a type of malignancy with metastasis to the right neck and also has mediastinal lymphadenopathy. The patient is being brought to the operating room at this time to undergo biopsy of the right tonsillar mass for diagnostic purposes. The procedure its risks and complications were explained in detail to the patient and her son. These risks include bleeding delayed bleeding infection sore throat voice change nasal regurgitation regrowth need for additional treatment tongue numbness or taste sensation change referred pain to the ears neck soreness or stiffness bad breath and more serious risk such as heart attack or stroke or not surviving the surgery. With these things understood informed consent was granted. Procedure: Description of procedure: The patient was placed on the operating table in the supine position. Adequate general endotracheal tube anesthesia was obtained. She was given Ancef IV for prophylaxis. The table was rotated 90 degrees with head drop 15 degrees to the horizontal. The eyes were taped shut and head drape was applied in usual fashion. A timeout was accomplished identifying the patient date of plan procedure allergies and with all in agreement the procedure continued. Mouthgag was put in place with the upper guard and protecting the upper dentition and the tongue blade pushing the tongue and endotracheal tube inferiorly. This was opened and suspended from a rolled towel placed on her chest. A red rubber catheter was inserted in the left nares and used to elevate the palate. The right tonsil was inspected and palpated. The tonsil lesion appeared to incorporate the entire tonsil as well as into the soft palate and uvula. The upper area was excised using the Coblator on ablatio n mode and coagulation mode to control bleeding. The upper segment was sent for frozen section. The lower section was removed and sent for permanent section. Bleeding was controlled with the Coblator on coagulation mode. Observation was then maintained while the frozen section was pending. Frozen section shows atypical cells but not consistent with squamous cell carcinoma. Could very well be lymphoma. Flow studies will be accomplished. After assuring that there was no bleeding the red rubber catheter was released and removed. Again no bleeding was encountered but it was found that the uvula was extremely edematous and was felt that this would be a problem with her airway and therefore uvulectomy was accomplished flush with the arch of the soft palate. This was done again with the Coblator on ablation mode and then the Coblator on coagulation mode to control bleeding. The area was irrigated and suctioned. No sign of bleeding was encountered. The mouthgag was released and the tongue and neck were massaged. The mouthgag was reopened. No bleeding was seen. The area was irrigated and suctioned. No bleeding was seen. The mouthgag was released and removed. Her head was returned to the upright position. Head drape and tape were removed. Again the throat was suctioned and no bleeding was evident. The patient was then returned to the anesthesiologist for wake-up and extubation. She tolerated the procedure well had an estimated blood loss of 30 mL and arrived in recovery in stable condition.
--- NOTE | 2020-10-19 11:04 | P.PCN_ITS ---
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
--- NOTE | 2020-10-19 11:04 | PM.PACU ---
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
--- NOTE | 2020-10-19 11:21 | SUR.PHASEI ---
PT AWAKES FINALLY TO TOUCH, DOES NOT OPEN EYES , BUT DOES TURN HEAD AND MOAN, ORAL AIRWAY OUT PT VERBALIZED NO TO PAIN QUESTIONS BUT UNABLE TO STAY AWAKE OR OPEN EYES, VSS. RESP 15-16 NOW, HOB AT 35 DEGREES. SATS ON RA ARE96% RESP EVEN AND UNLABORED.
--- NOTE | 2020-10-19 11:26 | SUR.PHASEI ---
1124 PT PLACED ON 3LNC SATS UP FROM 91% TO 94% RESP EVEN AND UNLABORED, PT UNABLE TO RESPOND MORE THAN A FEW SECONDS THEN BACK TO SLEEP NO DISTRESS NOTED.
[2020-10-19] MEDS: metoprolol tartrate 1 mg/1 mL SDV 5 mL 5 MG IV (11:34)
[2020-10-19] MEDS: sodium chloride 0.9% 1,000 ML 100 ML IV (11:37)
--- NOTE | 2020-10-19 11:55 | SUR.PHASEI ---
1134 DR LANDERS AT BEDSIDE PT REMAINS VERY LETHARGIC DOES NOT OPEN EYES, BP ELEVATED CHECKED ON BOTH ARMS, METOPROLOL 5MG IVP STARTED SLOW IV PUSH ORDERED . 1145 PT HR NOW 84 SR BUT BP REMAINS ELEVATED DR LANDERS NOTIFIED, PT REMAINS VERY OBTUNDED.
[2020-10-19] MEDS: hyDRALAzine 20 mg/mL INJ 1 mL 10 MG IVP (12:08)
--- NOTE | 2020-10-19 12:23 | SUR.PHASEI ---
PT BP LOWER NOW AT 158/93 DR LANDERS UPDATED PT STILL VERY LETHARGIC SEE MED ORDERED PHARMACY AWARE, DR LANDERS TO UPDATE FAMIILY.
[2020-10-19 13:36] LABS: Glucose Point of Care 217 mg/dL (70-110)
--- NOTE | 2020-10-19 16:07 | ANE.PACU2 ---
Inpatient post-anesthesia follow up: Airway intact: Yes Vital signs: Temperature 97 F Pulse Rate 91 Respiratory Rate 16 Blood Pressure 156/89 Pulse Oximetry 99 Oxygen Delivery Me thod Room Air Oxygen Flow Rate 3 Fraction of Inspir ed Oxygen Hydration adequate: Yes Nausea and vomiting: No Pain level: 1 Mental status: Baseline Additional Comments: Delayed awakening
[2020-10-21 10:01] LABS: Miscellaneous Test See Scanned Lab Rpt
[2020-10-26 12:49] LABS: PD-L1 (Clone 22C3) by IHC BBPL See Report
== END 2020-10-19 14:08 | disposition home or self-care (01) ==
PROVIDERS: PCP Nurse Practitioner Family; Visit Provider Otolaryngology
PROC: (CPT 42826; principal; 2020-10-19 07:50)
DX: D49.0 Neoplasm of unspecified behavior of digestive system (principal); I25.10 Atherosclerotic heart disease of native coronary artery without angina pectoris; Z95.1 Presence of aortocoronary bypass graft; I10 Essential (primary) hypertension; E11.9 Type 2 diabetes mellitus without complications; E78.5 Hyperlipidemia, unspecified
CPT/HCPCS: 42826; 36416; 82962; 88184; 88185; 88304; 88307; 88342; J0330; J0360; J0690; J1100; J2370; J2405; J2704; J3010; J3490; J7030

== ENCOUNTER → 2020-10-20 12:00 | Outpatient (BNVA) | payer OTHER, SELFPAY | PROVIDERS: PCP Nurse Practitioner Family; Visit Provider Nurse Practitioner Family | DX: E55.9 Vitamin D deficiency, unspecified (principal); R42 Dizziness and giddiness; Z74.2 Need for assistance at home and no other household member able to render care; R26.81 Unsteadiness on feet; R29.6 Repeated falls; R23.3 Spontaneous ecchymoses | CPT/HCPCS: 80053; 82306; 82607; 84443; 85025 ==

== ENCOUNTER 2020-10-23 16:50 | Inpatient (IN) | payer OTHER, SELFPAY ==
[2020-10-23] VITALS (10 sets, daily range): BP systolic 136–183; BP diastolic 64–99; PULSE 78–88; RESP 14–17; TEMP 36.7; O2SAT 96–99; BMI 24.4
--- NOTE | 2020-10-23 16:53 | ECG_ITS ---
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 Measurements Intervals [place] Rate: 81 P: 47 IA: 135 QRS: -15 QRSD: 91 T: 29 QT: 376 QTc: 437 Interpretive Statements SINUS RHYTHM POSSIBLE LEFT ATRIAL ENLARGEMENT [-0.1mV P WAVE IN V1/V2] Compared to ECG 10/18/2020 00:27:42 No significant changes Electronically Signed On 10-23-2020 20:07:28 CDT by Ernestine Munson M.D. [id number] f
--- NOTE | 2020-10-23 16:53 | CTR_ITS ---
PROCEDURE INFORMATION: Exam: CT Head Without Contrast Exam date and time: 10/23/2020 4:55 PM Age: 65 years old Clinical indication: Weakness, facial; Patient HX: R facial droop - found down 3.5hrs ago - lkw yesterday; Additional info: Symptoms of acute stroke TECHNIQUE: Imaging protocol: Computed tomography of the head without contrast. Radiation optimization: All CT scans at this facility use at least one of these dose optimization techniques: automated exposure control; mA and/or kV adjustment per patient size (includes targeted exams where dose is matched to clinical indication); or iterative reconstruction. Other technique: STROKE PROTOCOL was implemented. COMPARISON: CT head wo con* [id number] 10/18/2020 12:58 AM RADIATION DOSE METRICS: Total DLP (mGy-cm): 1834.69 FINDINGS: Brain: There is moderate cerebral atrophy. There is mild diffuse heterogeneity of the white matter attenuation, consistent with chronic white matter ischemic changes. No intracranial hemorrhage. No cerebral sulcal effacement identified. Loera matter and white matter interfaces appear preserved. No intracranial mass. Patchy areas of decreased attenuation are noted in the inferolateral left cerebellum which appear new from prior. Wedge-shaped area of decreased attenuation of the left barber stable from prior. Cerebral ventricles: No ventriculomegaly. Bones/joints: Unremarkable. No acute fracture. Paranasal sinuses: Visualized sinuses are unremarkable. No fluid levels. Mastoid air cells: Visualized mastoid air cells are well aerated. Soft tissues: Unremarkable. CT/CT head wo con* [id number] IMPRESSION: New region of decreased attenuation of the inferolateral left cerebellum consistent with acute or subacute ischemic infarct changes. Correlation with MRI recommended. ASSESSMENT: ASPECTS ([place] Arc Stroke Program Early CT Score) is 10. Radiation Dose CTDIVOL = (mGy): DLP = 1834.69 (mGy-cm)
--- NOTE | 2020-10-23 16:53 | CTR_ITS ---
PROCEDURE INFORMATION: Exam: CT Angiography Head With Contrast Exam date and time: 10/23/2020 5:11 PM Age: 65 years old Clinical indication: Weakness; Prior surgery; Surgery date: 3-7 days post-operative; Surgery type: Tonsil biopsy; Patient HX: R facial droop found down 3.5 hrs ago; Additional info: Likely CVA TECHNIQUE: Imaging protocol: Computed tomography angiography of the head with intravenous contrast. 3D rendering (Not supervised by radiologist): MIP and/or 3D reconstructed images were created by the technologist. Radiation optimization: All CT scans at this facility use at least one of these dose optimization techniques: automated exposure control; mA and/or kV adjustment per patient size (includes targeted exams where dose is matched to clinical indication); or iterative reconstruction. Contrast material: OMNI 350; Contrast volume: 95 ml; Contrast route: INTRAVENOUS (IV); COMPARISON: CT head wo con* [id number] 10/23/2020 5:05 PM RADIATION DOSE METRICS: Total DLP (mGy-cm): 2115.07 FINDINGS: ANTERIOR CIRCULATION: Right internal carotid artery: Unremarkable. Intracranial segment is patent with no significant stenosis. No aneurysm. Right middle cerebral artery: Unremarkable. No occlusion or significant stenosis. No aneurysm. Right anterior cerebral artery: Unremarkable. No occlusion or significant stenosis. No aneurysm. Left internal carotid artery: Unremarkable. Intracranial segment is patent with no significant stenosis. No aneurysm. Left middle cerebral artery: Unremarkable. No occlusion or significant stenosis. No aneurysm. Left anterior cerebral artery: Unremarkable. No occlusion or significant stenosis. No aneurysm. POSTERIOR CIRCULATION: Right vertebral artery: V4 segment of the right vertebral artery is diminutive and small areas of non opacification are noted which may represent a occlusions of unknown chronicity. Left vertebral artery: Thrombus is present in the V4 segment of the left vertebral artery. Basilar artery: Unremarkable. No occlusion or significant stenosis. No aneurysm. Right posterior cerebral artery: Unremarkable. No occlusion or significant stenosis. No aneurysm. Left posterior cerebral artery: Unremarkable. No occlusion or significant stenosis. No aneurysm. Brain: No intracranial hemorrhage. Decreased attenuation area in the inferolateral left cerebellar hemisphere is redemonstrated. Moderately atrophic brain parenchyma. Cerebral ventricles: No ventriculomegaly. Paranasal sinuses: Small air-fluid level in the right maxillary sinus. Bones/joints: Unremarkable. No acute fracture. Soft tissues: Unremarkable. IMPRESSION: 1. There is a small area of nonocclusive thrombus in the V4 segment of the left vertebral artery with scattered areas of moderate stenosis. 2. Diminutive appearance of the intracranial right vertebral artery with areas of non opacification which may represent short segmental occlusion of uncertain chronicity. 3. No cerebral artery occlusion identified. 4. Acute ischemic change of the left inferolateral cerebellum. PROCEDURE INFORMATION: Exam: CT Angiography Neck With Contrast Exam date and time: 10/23/2020 5:11 PM Age: 65 years old Clinical indication: Weakness; Prior surgery; Surgery date: 3-7 days post-operative; Surgery type: Tonsil biopsy; Patient HX: R facial droop found down 3.5 hrs ago; Additional info: Likely CVA TECHNIQUE: Imaging protocol: Computed tomography angiography of the neck with intravenous contrast. 3D rendering (Not supervised by radiologist): MIP and/or 3D reconstructed images were created by the technologist. Radiation optimization: All CT scans at this facility use at least one of these dose optimization techniques: automated exposure control; mA and/or kV adjustment per patient size (includes targeted exams where dose is matched to clinical indication); or iterative reconstruction. Contrast material: OMNI 350; Contrast volume: 95 ml; Contrast route: INTRAVENOUS (IV); COMPARISON: CT head wo con* [id number] 10/23/2020 5:05 PM RADIATION DOSE METRICS: Total DLP (mGy-cm): 2115.07 FINDINGS: Right common carotid artery: No stenosis. No dissection or occlusion. Right internal carotid artery: Short segment circumferential area of noncalcified atherosclerotic plaque at the origin of the right internal carotid artery. There is severe stenosis greater than 70%. Right external carotid artery: No occlusion or stenosis of the origin. Right vertebral artery: No stenosis. No dissection or occlusion. Left common carotid artery: No stenosis. No dissection or occlusion. Left internal carotid artery: Moderate atherosclerotic plaque volume in the proximal left internal carotid artery. Mild stenosis less than 50%. Left external carotid artery: No occlusion or stenosis of the origin. Left vertebral artery: No stenosis. No dissection or occlusion. Oropharynx: At the right base of tongue there is asymmetric enhancing soft tissue density. Submandibular/Parotid glands: Circumscribed mass in the right level 2 area of the neck in between the right submandibular gland and the right sternocleidomastoid muscle. The lesion has mixed attenuation features with areas of internal necrosis or tumor replacement. The mass measures 2.8 cm x 2.6 cm. Bones/joints: The cervical spine demonstrates moderate degenerative changes at multiple levels. Unremarkable alignment. No fracture. Soft tissues: In the left neck, also level 2 area at the same level of the dominant right-sided mass there is a smaller mixed attenuation mass which has central cystic, necrotic, or tumor replacement features. Lesion dimensions are 1.7 cm long axis by 1.1 cm short axis. Lungs: Mild emphysema. CT/CT angio headneck* [id number] IMPRESSION: 1. Severe right internal carotid artery stenosis greater than 70%. 2. Mild left internal carotid artery stenosis less than 50%. 3. Bilateral cervical lymphadenopathy greater on right than left. Cystic changes or tumor replacement of lymph nodes suspected. 4. Asymmetric enhancing soft tissue density right base of tongue. Malignancy not excluded. Direct visualization recommended. REFERENCES: NASCET CRITERIA. The degree of internal carotid artery stenosis is based on NASCET criteria. Normal is no stenosis. Mild is less than 50% stenosis. Moderate is 50-69% stenosis. Severe is 70% to 99% stenosis. Total occlusion is no detectable patent lumen. Radiation Dose CTDIVOL = (mGy): DLP = 2115.07~2115.07 (mGy-cm)
[2020-10-23 17:09] LABS: Glucose Point of Care 298 mg/dL (70-110)
[2020-10-23] MEDS: ondansetron 2 mg/ML SDV 2 mL 4 MG IVP ×2 (17:21→22:18)
[2020-10-23 17:25] LABS: Basophils % 0.2 %; Eosinophils % 0.1 %; Hematocrit 40.2 % (37.0-47.0); Hemoglobin 13.4 g/dL (11.5-15.3); Lymphocytes # 0.6 10^3/uL (0.8-4.8); Lymphocytes % 6.8 %; Mean Corpuscular HGB Conc 33.3 g/dL (30.0-36.0); Mean Corpuscular Hemoglobin 31.5 pg (28.0-34.0); Mean Corpuscular Volume 94.6 fL (81-99); Mean Platelet Volume 9.3 fL (7.4-10.4); Monocytes # 0.3 10^3/uL (0.2-0.9); Monocytes % 3.1 %; Neutrophils # 7.73 10^3/uL (1.8-7.7); Neutrophils % 89.6 %; Nucleated Red Blood Cells % 0 %; Platelet Count 330 10^3/cmm (130-400); Red Blood Count 4.25 10^6/uL (4.1-5.3); Red Cell Distribution Width 12.8 % (12.1-15.1); White Blood Count 8.6 10^3/uL (4.0-10.0)
--- NOTE | 2020-10-23 17:30 | PC.NURSE ---
patient denied any nausea or pain at this time.
[2020-10-23 17:39] LABS: INR 0.98 (0.8-1.2)
[2020-10-23] MEDS: iohexol 350 mg/mL 100 mL Btl IV (17:45)
[2020-10-23 17:46] LABS: Alanine Aminotransferase 17 U/L (0-33); Albumin Level 3.9 g/dL (3.5-5.2); Alkaline Phosphatase 104 IU/L (35-105); Anion Gap 18.6 (5-19); Aspartate Amino Transferase 21 U/L (0-32); Blood Urea Nitrogen 26 mg/dL (8-23); Calcium 9.2 mg/dL (8.5-10.5); Carbon Dioxide 26 mmol/L (22-29); Chloride 98 mmol/L (98-107); Globulin 3.6 g/dL (1.3-4.6); Glomerular Filtration Rate 84.2 mL/min (90-130); Glucose 311 mg/dL (65-115); Osmolality Calculated 303 mOsm/kg (285-295); Potassium 4.6 mmol/L (3.5-5.1); Sodium 138 mmol/L (136-145); Total Bilirubin 0.3 mg/dL (0.15-1.2); Total Protein 7.5 g/dL (6.6-8.7)
[2020-10-23 18:35] LABS: Amphetamines Screen Urine Negative (Negative); Barbiturates Screen Urine Negative (Negative); Benzodiazepines Screen Urine Negative (Negative); Cocaine Screen Urine Negative (Negative); Opiate Screen Urine Negative (Negative); PCP Screen Urine Negative (Negative); THC Screen Urine Negative (Negative)
[2020-10-23 18:45] LABS: Urine Appearance Clear (CLEAR); Urine Color Straw (Yellow)
[2020-10-23 18:46] LABS: Bilirubin Urine Neg (Negative); Blood Urine Neg (Negative); Glucose Urine UA 4+ (Normal); Ketones Urine 2+ (Negative); Leukocyte Esterase Urine Negative (Negative); Nitrate Urine Negative (Negative); Protein Urine Neg (Negative); Specific Gravity, Urine 1.015 (1.005-1.030); Urobilinogen Urine 1 mg/dL (Negative); pH Urine 5 (5-7)
[2020-10-23 18:47] LABS: Add Urine Microscopic? NO
--- NOTE | 2020-10-23 19:30 | W.ED.NEUROSD ---
HPI - Neuro Symptoms/Deficit General: Chief Complaint: Neuro Symptoms/Deficit Stated Complaint: poss stroke Time Seen by Provider: 10/23/20 16:54 History of Present Illness: HPI Narrative: The patient is a 65-year-old female with history of multiple CVAs, factor V Leiden, tonsillar suspected malignancy who comes to the ER after she was found by family at 1:30 PM with a right facial droop and confused slurred speech. On arrival to the ER she is arousable to vocal stimuli and is answering questions appropriately. She does have a mild slur which is possibly chronic. Mild right facial droop and mild chronic right-sided weakness which also appears chronic. She is acutely vomiting which is a new symptom. Head CT does show a left-sided cerebellar infarct which is consistent with her symptoms. Unknown time of onset of her symptoms as she was not checked on at home for the previous 24 hours. Associated symptoms: Reports nausea and vomiting; Deny chest pain or headache(s) Review of Systems General: Reports: 10 or more systems reviewed and unremarkable except in HPI and below Const: Denies: fatigue Eyes: Denies: change in vision, blurry vision or eye redness ENMT: Denies: throat pain, swelling of lips/tongue, ear or mastoid pain or nasal congestion Card: Denies: chest pain, palpitations, irregular heart rhythm, edema, dyspnea on exertion or orthopnea Resp: Denies: dyspnea, productive cough or non-productive cough GI: Reports: nausea and vomiting; Denies: abdominal pain, diarrhea or GI cramping : Denies: flank pain, difficulty voiding, urinary frequency or urinary urgency Musc: Denies: neck pain, back pain, extremity pain, joint pain, joint redness, limited range of motion or muscle weakness Skin/Breast: Denies: rash, pruritus, erythema, skin pain or skin tenderness Neuro: Reports: Slurred speech present; Denies: headache(s), numbness in extremities, weakness in extremities, sensory changes, difficulty walking, dizziness or confusion Psych: Denies: anxiety or depression Endo: Denies: polyuria All/Imm: Denies: urticaria, throat swelling or tongue swelling PFSH ED PFSH: Medical History CAD (coronary artery disease) Diabetes mellitus Hyperlipidemia Vitamin D deficiency Surgical History Hx of CABG (~2010) Hx of tubal ligation Family History Mother Hypertension Social History Smoking and tobacco status: never smoked Second hand smoke exposure: No Alcohol intake: never Lives independently: Yes Household members: none Housing: House Marital status: / service: No Current occupational status: retired History of recent travel: No Current gender identity: Female NIH stroke score NIHSS: Level Of Consciousness - 1a: 0 Level Of Consciousness Questions - 1b: Both Correct Level Of Consciousness Commands - 1c: Both Correct Best Gaze - 2: Normal Visual Gibson - 3: No Visual Loss Facial Palsy - 4: Normal Motor Arm Right - 5: No Drift Motor Arm Left - 5: No Drift Motor Leg Right - 6: No Drift Motor Leg Left - 6: No Drift Limb Ataxia - 7: Absent Sensory - 8: Normal Best Language - 9: Mild/Moderate Aphasia Dysarthia - 10: Mild/Moderate Dysarthia Extinction And Inattention - 11: 1 Score: Total Score: 3 Physical Exam Const: COMMON NORMALS: no acute distress, average body habitus, patient oriented x3, no limitations, healthy appearing, alert and well nourished GENERAL APPEARANCE: cooperative, comfortable, well kempt and well developed ORIENTATION/CONSCIOUSNESS: Yes awake, Yes oriented to person, Yes oriented to place and Yes oriented to time HENMT: COMMON NORMALS: normocephalic, external ears normal and Normal external nose present HEAD & SCALP: normal to inspection and normocephalic NOSE: Normal external nose present EXTERNAL EAR: Yes external ears normal MOUTH: Normal oral and palatal mucosa present THROAT: posterior oropharynx normal Eye: COMMON NORMALS: Equal, round and reactive pupils present and EOMs intact bilaterally GENERAL EYE: appearance normal, both eyes and all related structures PUPIL: Yes Equal, round and reactive pupils present Neck/C-Spine: COMMON NORMALS: full ROM, no lymphadenopathy, no meningeal signs and no JVD GENERAL: Yes normal visual inspection Lymph: LYMPHATIC: no lymphadenopathy noted Chest: COMMONS NORMALS: normal inspection of the chest and normal palpation of entire chest wall Resp: COMMON NORMALS: normal respiratory effort, No retractions, No use of accessory muscles, clear to auscultation bilaterally and percussion normal EFFORT & INSPECTION: Yes able to speak in complete sentences AUSCULTATION: clear to auscultation bilaterally PERCUSSION: percussion normal Cardio: COMMON NORMALS: no JVD, regular rate, regular rhythm, S1 normal heart sound present, S2 normal heart sound present and Peripheral pulses 2+ throughout RATE: regular rate RHYTHM: regular rhythm HEART SOUNDS: S1 normal heart sound present and S2 normal heart sound present PERIPHERAL PULSES: Peripheral pulses 2+ throughout GI: COMMON NORMALS: Normal to inspection, nondistended, normoactive bowel sounds present, Soft to palpation, non-tender and no masses INSPECTION: Yes normal to inspection PALPATION: Yes Soft to palpation : COMMON NORMALS: Yes no CVA tenderness BLADDER/KIDNEY EXAM: Yes no CVA tenderness Back/Pelvis: COMMON NORMALS: no CVA tenderness, thoracic and lumbar spine normal to inspection, no thoracic nor lumbar tenderness and thoraco-lumbar ROM normal Extremity: COMMON NORMALS: normal to inspection, full ROM, capillary refill normal, no joint enlargement and no pedal edema GENERAL: Yes normal exam except as noted Neuro: DENISE COMA SCALE: document GCS findings Denise coma scale eye opening: Spontaneous Denise coma scale verbal response: Orientated [place] coma scale motor response: Obey commands [place] coma scale total score: 15 COMMON NORMALS: patient oriented x3, CN's II-XII intact bilaterally, moves all extremities, no sensory deficits noted and gait normal SENSORIUM/ORIENTATION: Yes alert, Yes oriented to person, Yes oriented to place and Yes oriented to time MENINGEAL SIGNS: Yes no meningeal signs OTHER: The patient has a slight right-sided facial droop and slight weakness in the right upper and lower extremity these are probably chronic from previous strokes. Psych: COMMON NORMALS: mental status grossly normal, Normal thought process present, cooperative, normal affect and speech normal APPEARANCE: Yes well kempt ATTITUDE: Yes calm SPEECH: Yes normal speech THOUGHT PROCESS: Normal thought process present Skin: COMMON NORMALS: no rashes or lesions noted GENERAL SKIN EXAM: no rashes or lesions noted Course Vital Signs: Vital signs: Vital Signs Temperature 98.1 F 10/23/20 16:53 Pulse Rate 79 10/23/20 20:27 Respiratory Rate 16 10/23/20 20:27 Blood Pressure 156/97 10/23/20 20:27 Pulse Oximetry 97 10/23/20 20:27 MDM - Neuro Symptoms/Deficit MDM Narrative: Medical decision making narrative: The care of this patient has been complex. It is apparent shortly after she arrived that she is having a left-sided cerebellar acute to subacute CVA. Onset of symptoms were unknown and she recently stopped taking aspirin and Plavix for a tonsillar biopsy. She likely has cancer there. CT angiogram of head and neck showed a thrombus in the left vertebral artery completely obstructing flow in the right internal carotid is more than 70% clotted. Discussed these findings with Lai sung with the stroke team who recommended no acute intervention and permissive hypertension at admission to our hospital pending approval of a vascular surgeon saying the right internal carotid is not contributing to her symptoms. It is unlikely as the right carotid does not supply blood to the left cerebellum. Discussed with Dr. Valera vascular surgeon at [facility] who recommended outpatient follow-up for this. Discussed with Dr. Andres who accepted for admission. Lab Data: Labs: Lab Results 10/23/20 10/23/20 10/23/20 Range/Units 17:04 17:20 17:20 WBC 8.6 (4.0-10.0) 10^3/ uL RBC 4.25 (4.1-5.3) 10^6/u L Hgb 13.4 (11.5-15.3) g/dL Hct 40.2 (37.0-47.0) % MCV 94.6 (81-99) fL MCH 31.5 (28.0-34.0) pg MCHC 33.3 (30.0-36.0) g/dL RDW 12.8 (12.1-15.1) % Plt Count 330 (130-400) 10^3/c mm MPV 9.3 (7.4-10.4) fL Neut % (Auto) 89.6 % Lymph % (Auto) 6.8 % Barber % (Auto) 3.1 % Eos % (Auto) 0.1 % Baso % (Auto) 0.2 % Neut # (Auto) 7.73 H (1.8-7.7) 10^3/u L Lymph # (Auto) 0.6 L (0.8-4.8) 10^3/u L Barber # (Auto) 0.3 (0.2-0.9) 10^3/u L Eos # (Auto) 0.0 (0.0-0.8) 10^3/u L Baso # (Auto) 0.0 (0.0-0.1) 10^3/u L Nucleated RBC % (a uto) 0 % Nucleated RBCs # 0.0 /100WBC PT 13.30 (12.1-14.9) SECO NDS INR 0.98 (0.8-1.2) APTT 25.0 (23.9-36.7) SECO NDS Sodium (136-145) mmol/L Potassium (3.5-5.1) mmol/L Chloride (98-107) mmol/L Carbon Dioxide (22-29) mmol/L Anion Gap (5-19) BUN (8-23) mg/dL Creatinine (0.5-0.9) mg/dL GFR Calculation (90-130) mL/min Glucose (65-115) mg/dL POC Glucose 298 H (70-110) mg/dL Calculated Osmolal ity (285-295) mOsm/k g Calcium (8.5-10.5) mg/dL Total Bilirubin (0.15-1.2) mg/dL AST (0-32) U/L ALT (0-33) U/L Alkaline Phosphata se (35-105) IU/L Total Protein (6.6-8.7) g/dL Albumin (3.5-5.2) g/dL Globulin (1.3-4.6) g/dL Urine Color (Yellow) Urine Appearance (CLEAR) Urine pH (5-7) Ur Specific Gravit y (1.005-1.030) Urine Protein (Negative) Urine Glucose (UA) (Normal) Urine Ketones (Negative) Urine Blood (Negative) Urine Nitrate (Negative) Urine Bilirubin (Negative) Urine Urobilinogen (Negative) mg/dL Ur Leukocyte Margarita ase (Negative) Urine Opiates Scre en (Negative) ng/mL Ur Barbiturates Sc reen (Negative) ng/mL Ur Phencyclidine S crn (Negative) ng/mL Ur Amphetamines Sc reen (Negative) ng/mL U Benzodiazepines Scrn (Negative) ng/mL Urine Cocaine Scre en (Negative) ng/mL U Marijuana (THC) Screen (Negative) ng/mL 10/23/20 10/23/20 10/23/20 Range/Units 17:20 17:57 17:57 WBC (4.0-10.0) 10^3/ uL RBC (4.1-5.3) 10^6/u L Hgb (11.5-15.3) g/dL Hct (37.0-47.0) % MCV (81-99) fL MCH (28.0-34.0) pg MCHC (30.0-36.0) g/dL RDW (12.1-15.1) % Plt Count (130-400) 10^3/c mm MPV (7.4-10.4) fL Neut % (Auto) % Lymph % (Auto) % Barber % (Auto) % Eos % (Auto) % Baso % (Auto) % Neut # (Auto) (1.8-7.7) 10^3/u L Lymph # (Auto) (0.8-4.8) 10^3/u L Barber # (Auto) (0.2-0.9) 10^3/u L Eos # (Auto) (0.0-0.8) 10^3/u L Baso # (Auto) (0.0-0.1) 10^3/u L Nucleated RBC % (a uto) % Nucleated RBCs # /100WBC PT (12.1-14.9) SECO NDS INR (0.8-1.2) APTT (23.9-36.7) SECO NDS Sodium 138 (136-145) mmol/L Potassium 4.6 (3.5-5.1) mmol/L Chloride 98 (98-107) mmol/L Carbon Dioxide 26 (22-29) mmol/L Anion Gap 18.6 (5-19) BUN 26 H (8-23) mg/dL Creatinine 0.7 (0.5-0.9) mg/dL GFR Calculation 84.2 L (90-130) mL/min Glucose 311 H (65-115) mg/dL POC Glucose (70-110) mg/dL Calculated Osmolal ity 303 H (285-295) mOsm/k g Calcium 9.2 (8.5-10.5) mg/dL Total Bilirubin 0.3 (0.15-1.2) mg/dL AST 21 (0-32) U/L ALT 17 (0-33) U/L Alkaline Phosphata se 104 (35-105) IU/L Total Protein 7.5 (6.6-8.7) g/dL Albumin 3.9 (3.5-5.2) g/dL Globulin 3.6 (1.3-4.6) g/dL Urine Color Straw (Yellow) Urine Appearance Clear (CLEAR) Urine pH 5 (5-7) Ur Specific Gravit y 1.015 (1.005-1.030) Urine Protein Neg (Negative) Urine Glucose (UA) 4+ H (Normal) Urine Ketones 2+ H (Negative) Urine Blood Neg (Negative) Urine Nitrate Negative (Negative) Urine Bilirubin Neg (Negative) Urine Urobilinogen 1 H (Negative) mg/dL Ur Leukocyte Margarita ase Negative (Negative) Urine Opiates Scre en Negative (Negative) ng/mL Ur Barbiturates Sc reen Negative (Negative) ng/mL Ur Phencyclidine S crn Negative (Negative) ng/mL Ur Amphetamines Sc reen Negative (Negative) ng/mL U Benzodiazepines Scrn Negative (Negative) ng/mL Urine Cocaine Scre en Negative (Negative) ng/mL U Marijuana (THC) Screen Negative (Negative) ng/mL Discharge Plan Discharge Patient Disposition: Admitted As Inpatient Admit Provider: Yenny Paredes Clinical Impression: Cerebrovascular accident Condition: Stable Coding Level of Care Code ED Caustic Loader for Morena Galvan
--- NOTE | 2020-10-23 21:18 | P.HP_ITS ---
Providers/Chief Complaint Admitting Physician: Reggie Primary Care Provider: GABY Winchester Chief Complaint: poss stroke History of Present Illness Veronika Burnette is a 65 year old female who presented to the emergency room with chief complaint of difficulty speaking and right-sided facial droop. She has a history of previous strokes with right-sided symptoms associated with this chronically. Her symptoms were worse today. She also had vomiting several times and was acutely dizzy, with difficulty walking. Over the last month or 2 she has had intermittent episodes of gait instability and dizziness. She has been taking meclizine for vertigo along with Zofran at times because of nausea. She had been found to have a mass in her neck and it was thought that that may be contributing to her symptoms. On October 19, she had right tonsillectomy and biopsy that has shown evidence of malignancy. 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 Specimen has been sent for flow cytometry and further studies. She has not been taking in much oral intake since then but oral intake today has been much less. With the persistent vomiting and significant change in her speech she was brought in for further evaluation. CT of the head without contrast on arrival demonstrated evidence of left cerebellar infarction. CTA of the head and neck did show some thrombus in the V4 segment of the left vertebral artery. Right carotid was also noted to be occluded. ER physician discussed findings with neurology at [facility] who recommended medical management unless vascular surgery felt that there would be a benefit from intervention on right carotid. ER physician discussed with vascular surgery at [facility] and given that the acute stroke was not located on the right side they did not feel that there was an emergent need to intervene and it could be followed up outpatient. Patient is being admitted for further management currently of acute stroke. History was obtained from a combination of the patient, the patient's son who was present in the room and one of her daughters in law who was on the phone. Review of Systems Const: Reports: change in appetite, change in weight, fatigue and malaise; Denies: fever(s) or chills Eyes: Reports: blurry vision and other (Denies diplopia) ENMT: Reports: throat pain, odynophagia, hoarseness, dry mouth, halitosis and other (neck mass) Card: Denies: chest pain or palpitations Resp: Reports: productive cough; Denies: dyspnea or hemoptysis GI: Reports: nausea and vomiting; Denies: abdominal pain, diarrhea or constipation : Denies: difficulty voiding Musc: Reports: neck pain; Denies: back pain or extremity pain Skin/Breast: Reports: rash (Right arm after had tonsillectomy, improving nearly resolved) and dry skin Neuro: Reports: headache(s), weakness in extremities, lack of coordination, difficulty walking, frequent falls, dizziness, vertigo, confusion, Slurred speech present and difficulty communicating thoughts; Denies: numbness in extremities or seizure-like activity Anthony/Lymph: Denies: easy bruising or easy bleeding Medications/Allergies Home Medications Medication Instructions Recorded Confirmed Last Taken Type aspirin 81 mg tablet,delayed 162 mg PO DAILY tab 09/22/19 10/23/20 10/15/20 History release furosemide 20 mg tablet 20 mg PO DAILY PRN 10/21/19 10/23/20 Unknown History clopidogrel 75 mg tablet 75 mg PO DAILY #90 tab 08/17/20 10/23/20 10/16/20 Rx escitalopram oxalate 5 mg tablet See Rx Instructions .ROUTE 08/17/20 10/23/20 10/22/20 Rx .COMPLEX #90 tab evolocumab 140 mg/mL subcutaneous 140 mg SUBCUT .EVERY 2 WEEKS #2 ml 08/17/20 10/23/20 Unknown Rx pen injector famotidine 20 mg tablet 20 mg PO BID #180 tab 08/17/20 10/23/20 Unknown Rx insulin glargine 100 unit/mL (3 10 unit SUBCUT DAILY 90 Days #15 ml 08/17/20 10/23/20 Unknown Rx mL) subcutaneous pen meclizine 25 mg tablet 25 mg PO TID PRN #90 tab 09/29/20 10/23/20 10/23/20 Rx ondansetron 4 mg disintegrating 4 mg PO TID PRN #30 tab 09/29/20 10/23/20 10/23/20 Rx tablet tramadol 50 mg PO Q6H PRN #50 tab 10/19/20 10/23/20 Unknown Rx metformin 1,000 mg tablet 1,000 mg PO BID 10/20/20 10/23/20 10/22/20 History ergocalciferol (vitamin D2) 1,250 1,250 mcg PO .weekly #12 cap 10/21/20 10/23/20 Unknown Rx mcg (50,000 unit) capsule glipizide 5 mg PO BID 10/23/20 10/23/20 10/22/20 History lisinopril 2.5 mg PO DAILY 10/23/20 10/23/20 10/22/20 History Allergies Allergy/AdvReac Type Severity Reaction Status Date / Time atorvastatin [From Lipitor] Allergy ADR-Cramping Verified 10/20/20 10:52 of the Muscles PFSH Acute PFSH: Medical History (Updated 10/23/20 @ 23:12 by Yenny Paredes MD) CAD (coronary artery disease) CVA (cerebral vascular accident) Diabetes mellitus 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 stroke/+ mutation, no history of prior clotting, not been on anticoagulation for this Hyperlipidemia on Repatha, has been intolerant of statins Vitamin D deficiency Surgical History (Updated 10/23/20 @ 23:12 by Yenny Paredes MD) 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 Hx of tubal ligation S/P tonsillectomy (10/19/20) right tonsil due to malignancy, biopsy Family History Mother Hypertension Social History (Updated 10/23/20 @ 23:13 by Yenny Paredes MD) Smoking and tobacco status: never smoked Second hand smoke exposure: No Alcohol intake: never Substance/Drug Use: never Lives independently: Yes Household members: none and other Details: recently had home health ordered Housing: House Marital status: / service: No Current occupational status: retired History of recent travel: No Current gender identity: Female Vitals/I&O/Wt Last Vital Signs Temp 98.1 F 10/23/20 16:53 Pulse 79 10/23/20 20:27 Resp 16 10/23/20 20:27 BP 156/97 10/23/20 20:27 Pulse Ox 97 10/23/20 20:27 Weight last 48 hrs Weight 66.678 kg Physical Exam Const: OTHER: Awake, will slowly answer questions but does seem to be searching for words. She is lying on her right side. She looks chronically and acutely ill. HENMT: OTHER: Right-sided facial droop difficult to appreciate definitively currently due to patient's positioning. She is very nauseated so I did not move her further to confirm. She keeps her left eye closed with right eyelid open just a little bit. Posterior oropharynx with large area of whitish-grayish mucosa in the region of the right tonsillar crypt. Halitosis noted. No purulen t drainage. No bleeding noted. Dry mucous membranes. Intermittent hiccups noted, occasional belching, occasional attempts to clear throat. Eye: OTHER: Pupils equally round and reactive to light, extraocular movements intact Neck/C-Spine: OTHER: Neck mass palpable on the right is a firm discrete maybe 2-1/2 to 3cm diameter nodule and then around anteriorly more soft tissue prominence. Resp: OTHER: Clear to auscultation bilaterally, no accessory muscle use Cardio: OTHER: Regular rate and rhythm, no murmurs noted, pulses are equal GI: OTHER: Abdomen soft, nontender, nondistended with positive bowel sounds : OTHER: Deferred Extremity: OTHER: No pitting edema, some muscle wasting noted, right upper extremity is not swollen Neuro: OTHER: Speech is a bit slurred, handgrip is equal, toes are upgoing bilaterally Psych: OTHER: Flat affect Skin: OTHER: Skin is dry, there is some mild erythema to the right forearm but no rashes appreciated. Data : 10/23/20 17:20 10/23/20 17:20 A&P Assessment and plan (1) Posterior circulation stroke: Subacute. I ended up calling [place] neurologist back to review patient's case a bit further after learning that she had been having what are likely vertebrobasilar symptoms over the last month or 2 intermittently culminating sometime in the last couple of days in much more significant posterior circulation stroke. Neurologist reported that there was no good evidence to support intervention in this case but that consideration could be given to full anticoagulation, particularly with known factor V Leiden mutation. Unfortunately with surgical intervention in the posterior oropharynx just a few days go risks probably outweigh benefits presently. Recommendation was for medical management. She is chronically on Repatha, DENNIS inhibitor, aspirin and Plavix. Not on a statin due to intolerance. 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 Pathology is pending. Family has been made aware of confirmation of malignancy. Status: Acute (5) S/P tonsillectomy: Postop day 4 from right tonsillectomy with biopsy with what I suspect are normal findings status post this procedure in the pharynx Status: Acute (6) Hyperlipidemia: On Repatha, has been intolerant of statins due to muscle cramping Status: Chronic Qualifiers: Hyperlipidemia type: unspecified Qualified Code(s): E78.5 - Hyperlipidemia, unspecified (7) Diabetes mellitus: Chronically on insulin therapy, glipizide and Metformin Status: Chronic Qualifiers: Diabetes mellitus complication status: with hyperglycemia Diabetes mellitus adjunct faculty for medical terminology insulin use: with fci use Diabetes mellitus type: type 2 Qualified Code(s): E11.65 - Type 2 diabetes mellitus with hyperglycemia; Z79.4 - FPC (current) use of insulin (8) Hypertension: Chronically on lisinopril and as needed Lasix Status: Chronic Qualifiers: Hypertension type: essential hypertension Qualified Code(s): I10 - Essential (primary) hypertension (9) CAD (coronary artery disease): History of four-vessel bypass Status: Chronic Qualifiers: Associated angina: without angina Coronary Disease-Associated Artery/Lesion type: unspecified vessel or lesion type [place] vs. transplanted heart: [place] heart Qualified Code(s): I25.10 - Atherosclerotic heart disease of [place] coronary artery without angina pectoris Additional A&P Information Inpatient admission Serial neuro exams Resume aspirin and Plavix Aspirin and Plavix Hold home antihypertensives, allow some permissive hypertension Statin therapy, aware of patient's history of cramping of the muscles in the past Check lipid panel Speech therapy, physical and Occupational Therapy Neurology consultation locally in the morning ENT consultation with Dr. Bradshaw in the morning Pending input from above consider full anticoagulation given known factor V Leiden mutation and malignancy I have ordered subcu heparin currently for DVT prophylaxis which should allow us to monitor response to lower doses Consider oncology consultation although I think there is not enough pathology result back yet to justify this Consider feeding tube placement during hospital stay particularly if decision is made to fully anticoagulate IV fluids Antiemetics Continue meclizine, add Ativan for vertiginous type symptoms Sliding scale insulin, check hemoglobin A1c Dietary consultation given comorbid issues with stroke, malignancy and weight loss Have currently held the majority of patient's home medications Pain control as needed, she does not like to take pain medications Supportive care otherwise Currently full code. I did talk to the patient and the family about the possibility of feeding tube to help with nutritional status under the circumstances of having both a stroke and malignancy to contend with at the same time. We may not need to do it during this hospital stay but it is something to keep in mind particularly if decision is made regarding anticoagulation. Also reviewed situation in which we might have to consider intubation in such and she was okay with this temporarily. Patient, her son and [id number] were all given an opportunity to ask questions which were answered Attestations Medical Necessity Statement*: Anticipated stay greater than 2 midnights in a patient presenting with a stroke who had recent tonsillectomy with biopsy and has been found to have malignancy. She has factor V Leiden mutation. If we initiate anticoagulation in the setting she is at high risk of bleeding. She requires further neurological evaluation and determination of best plan of care. Additionally she continues to vomit frequently due to the vertiginous nature of her symptoms. She will be watched initially in the ICU due to persistent vomiting and potential need to provide more aggressive supportive care in the short-term. Coding Level of Care Code Acute Puppy Sitter for [facility] Fwd Diagnoses Posterior circulation stroke I63.50 Thrombosis of left vertebral artery I65.02 Factor V Leiden mutation D68.51 Tonsillar neoplasm D49.0 S/P tonsillectomy Z90.89 Hyperlipidemia E78.5 Hyperlipidemia type: unspecified Diabetes mellitus E11.65; Z79.4 Diabetes mellitus complication status: with hyperglycemia Diabetes mellitus adjunct faculty for medical terminology insulin use: with adjunct faculty for medical terminology use Diabetes mellitus type: type 2 Hypertension I10 Hypertension type: essential hypertension CAD (coronary artery disease) I25.10 Associated angina: without angina Coronary Disease-Associated Artery/Lesion type: unspecified vessel or le cory type [place] vs. transplanted heart: [place] heart
--- NOTE | 2020-10-23 22:21 | PC.NURSE ---
Pt actively vomiting. Dr. Paredes in the room, gave verbal order for 4mg Zofran IVP
[2020-10-24] VITALS (270 sets, daily range): BP systolic 109–194; BP diastolic 58–112; PULSE 61–94; RESP 4–23; TEMP 36.5–36.8; O2SAT 86–100
[2020-10-24] MEDS: insulin glargine 100 units/1 mL 10 UNIT SUBCUT ×2 (01:06→20:02)
[2020-10-24] MEDS: heparin 5,000 unit/mL INJ 1 mL 5000 UNIT SUBCUT ×3 (01:07→14:55)
[2020-10-24 01:08] LABS: Glucose Point of Care 259 mg/dL (70-110)
[2020-10-24] MEDS: sodium chlor 0.9% + KCl 20 mEq 20 MEQ/1,000 ML BAG 100 MEQ IV ×2 (04:56→14:47)
[2020-10-24 05:58] LABS: Chol HDL Ratio 4.59 mg/dL (0.0-4.40); Cholesterol 156 mg/dL (0-200); HDL Cholesterol 34 mg/dL (60-100); LDL Cholesterol Calculated 84 mg/dL (50-129); LDL HDL Ratio 2.47 RATIO (0.00-3.22); Triglycerides 192 mg/dL (0-150)
--- NOTE | 2020-10-24 06:00 | USCV_ITS ---
Veronika Burnette Age: 65 Gender: F : 1955 Exam Date: 10/24/2020 06:19 Ordering Phys: Yenny Paredes MD Technologist: Exam Location: [facility] [place] Indication: POSTERIOR CIRCULATION STROKE BP: 165 / 101 HR: 76 Rhythm: Sinus Technical Quality: Adequate MEASUREMENTS (Male / Female) Normal Values 2D ECHO LV Diastolic Diameter PLAX 3.8 cm 4.2 - 5.9 / 3.9 - 5.3 cm LV Systolic Diameter PLAX 2.5 cm IVS Diastolic Thickness 0.9 cm 0.6 - 1.0 / 0.6 - 0.9 cm IVS Systolic Thickness 1.3 cm LVPW Diastolic Thickness 1.1 cm 0.6 - 1.0 / 0.6 - 0.9 cm LVPW Systolic Thickness 1.2 cm LVOT Diameter 2.0 cm LV Ejection Fraction 2D Teich 62.9 % LV Ejection Fraction MOD 2C 63.8 % LV Ejection Fraction 2C AL 64.1 % LA Diameter 3.9 cm LA Width 2.6 cm LA Height 4.0 cm RA Width 2.7 cm RA Height 4.9 cm M-MODE LV Diastolic Diameter MM 5.9 cm 4.2 - 5.9 / 3.9 - 5.3 cm LV Systolic Diameter MM 3.9 cm LV Ejection Fraction MM Teich 62.8 % IVS Diastolic Thickness MM 0.8 cm 0.6 - 1.0 / 0.6 - 0.9 cm IVS Systolic Thickness MM 1.3 cm LVPW Diastolic Thickness MM 1.3 cm 0.6 - 1.0 / 0.6 - 0.9 cm LVPW Systolic Thickness MM 1.3 cm RV Diastolic Diameter MM 0.9 cm Aortic Annulus Diameter 3.1 cm LA Ao Ratio MM 1.4 MV E Point Septal Separation 1.7 cm DOPPLER AV Peak Velocity 144.0 cm/s LVOT Peak Velocity 105.0 cm/s AV Area Cont Eq vti 2.7 cm squared AV Area Cont Eq pk 2.3 cm squared MV Area PHT 5.0 cm squared Mitral E to A Ratio 0.8 MV E' Velocity 54.0 cm/s Mitral E to MV E' Ratio 13.3 Mitral E to LV E' Lateral Ratio 10.3 Mitral E to LV E' Septal Ratio 18.9 TR Peak Velocity 155.3 cm/s TR Peak Gradient 9.7 mmHg PV Peak Velocity 75.0 cm/s FINDINGS Left Ventricle Normal left ventricular size and systolic function, EF 62 %. Mild left ventricular hypertrophy. Grade I/IV diastolic dysfunction (abnormal relaxation filling pattern), normal to mildly elevated filling pressures. Mild hypokinesia of the mid and apical septum and anteroseptal segments Right Ventricle The right ventricle is normal in size and function. Right Atrium The right atrium is normal in size. Left Atrium Mildly increased left atrial size. Mitral Valve Thickened mitral valve. Moderate mitral annular calcification. Trace mitral valve regurgitation. Aortic Valve Thickened aortic valve. Trace aortic valve regurgitation. Tricuspid Valve No gross abnormalities noted Pulmonic Valve No gross abnormalities noted Pericardium Normal pericardium without effusion. Aorta Normal ascending aorta dimension. CONCLUSIONS Normal left ventricular size and EF 62 %. Mild left ventricular hypertrophy. Grade I/IV diastolic dysfunction (abnormal relaxation filling pattern), normal to mildly elevated filling pressures. Wall motion abnormalities as mentioned above Thickened aortic and mitral valves. Moderate mitral annular calcification. Trace of aortic and mitral regurgitation. There is no pericardial effusion. There are no intracardiac masses. No previous study is available for comparison. Dr Sadie Hinds MD FAC (Electronically Signed) Final Date: 24 October 2020 17:54 S
[2020-10-24 06:04] LABS: Estmated Average Glucose 192; Hemoglobin A1C 8.3 % (4.0-6.0)
[2020-10-24 07:57] LABS: Glucose Point of Care 216 mg/dL (70-110)
[2020-10-24] MEDS: clopidogrel 75 mg Tablet PO (08:04)
[2020-10-24] MEDS: aspirin 81 mg EC Tablet 162 MG PO (08:04)
--- NOTE | 2020-10-24 09:45 | PM.PN ---
Subjective Subjective: Interval history: Veronika reports she is doing a little bit better this morning. She does not believe her right side is as weak as it was. She is able to carry on a conversation. Medications: Reviewed: Yes Vitals/I&O/Wt Last Vital Signs Temp 98.2 F 10/24/20 08:00 Pulse 74 10/24/20 08:00 Resp 15 10/24/20 08:00 BP 165/101 10/24/20 08:00 Pulse Ox 98 10/24/20 06:30 10/23/20 10/24/20 10/24/20 22:59 06:59 14:59 Intake Total 0 / 0 50 / 50 Output Total 550 / 550 0 / 0 Balance -550 / -550 50 / 50 Weight last 48 hrs Weight 65.998 kg Weight 66.678 kg Physical Exam Narrative: EXAM NARRATIVE: General exam is no apparent distress. Somewhat slow in her responses but able to carry on a conversation HEENT: Pupils equally round. No nystagmus is noted. Neck is supple no lymphadenopathy or thyromegaly Cardiovascular regular rate and rhythm Lungs are clear bilaterally Abdomen is soft with positive bowel sounds Extremities no cyanosis clubbing or edema Data : 10/23/20 17:20 10/23/20 17:20 A&P Assessment and plan (1) Posterior circulation stroke: Subacute. Not candidate for TPA Admitting hospitalist clarified that she is not a candidate for intervention as well. Currently anticoagulation is not recommended. Patient does have known factor V Leiden mutation. Recently had tonsillectomy which is another risk factor for anticoagulation. 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 On Repatha chronically. Placed on statin on admission and will closely monitor. 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 Final was positive for malignancy. Family has been made aware of confirmation of malignancy. Further pathology testing is pending. Status: Acute (5) S/P tonsillectomy: Postop day #5 right tonsillectomy with biopsy Status: Acute (6) Hyperlipidemia: On Repatha, has been intolerant of statins due to muscle cramping Status: Chronic Qualifiers: Hyperlipidemia type: unspecified Qualified Code(s): E78.5 - Hyperlipidemia, unspecified (7) Diabetes mellitus: Chronically on insulin therapy, glipizide and Metformin Status: Chronic Qualifiers: Diabetes mellitus complication status: with hyperglycemia Diabetes mellitus skilled nursing insulin use: with skilled nursing use Diabetes mellitus type: type 2 Qualified Code(s): E11.65 - Type 2 diabetes mellitus with hyperglycemia; Z79.4 - snf (current) use of insulin (8) Hypertension: Permissive hypertension currently Status: Chronic Qualifiers: Hypertension type: essential hypertension Qualified Code(s): I10 - Essential (primary) hypertension (9) CAD (coronary artery disease): History of four-vessel bypass Status: Chronic Qualifiers: Associated angina: without angina Coronary Disease-Associated Artery/Lesion type: unspecified vessel or lesion type [place] vs. transplanted heart: [place] heart Qualified Code(s): I25.10 - Atherosclerotic heart disease of [place] coronary artery without angina pectoris Additional A&P Information Type 2 diabetes. Sliding scale insulin. Full code Heparin for DVT prophylaxis Attestations Medical Necessity Statement*: Needs continued hospitalization secondary to CVA, with need for close monitoring as this is a cerebellar CVA. Coding Level of Care Code Acute Instrumental Musician for [facility] Fwd Diagnoses Posterior circulation stroke I63.50 Thrombosis of left vertebral artery I65.02 Factor V Leiden mutation D68.51 Tonsillar neoplasm D49.0 S/P tonsillectomy Z90.89 Hyperlipidemia E78.5 Hyperlipidemia type: unspecified Diabetes mellitus E11.65; Z79.4 Diabetes mellitus complication status: with hyperglycemia Diabetes mellitus skilled nursing insulin use: with skilled nursing use Diabetes mellitus type: type 2 Hypertension I10 Hypertension type: essential hypertension CAD (coronary artery disease) I25.10 Associated angina: without angina Coronary Disease-Associated Artery/Lesion type: unspecified vessel or lesion type [place] vs. transplanted heart: [place] heart
--- NOTE | 2020-10-24 10:02 | PC.CHAP ---
Pastoral Care Encounter/Spiritual Assessment Type of Contact [] Declined mash grinder visit [] Patient/Family/Request visit [] Outpatient visit [] Follow-up visit [] Physician referral [] Code/Alert [x] Routine visit [] Staff referral [] Actively dying [x] Patient sleeping [] Family support [] [] Out of room [] Palliative care [] [] Receiving care in room [] Pre-surgical visit [] Trauma [] Long length of stay [x] ICU visit [] Other: Relational/Emotional Strength [] Patient feels connected with others/family/visitors/staff [] Distress [] Loneliness/isolation [] Abandonment Spirituality of Patient [] Person of Dedra [] Attends Sabianism of their Dedra [] Believes in Prayer [] Reads Bible or Worship materials [] There are Spiritual issues to be addressed [employer] Interventions [x] Prayer [] Active listening [] Non-anxious presence [] Spiritual/emotional support [] Crisis/trauma care [] Spiritual counseling [] Bereavement support [] Provided bereavement packet [] Provided Bible/devotional materials [] Provided toy/stuffed animal, coloring book to patient or family member [] Provided Communion [] Anointing/[place] [] Salvation [x] Completed spiritual assessment [] Other: Impact on Illness or Injury [] Angry [] Fearful [] Anxious [] Often cries [] Exhaustion [] Unable to work [] Unable to attend holiness [] Unable to walk/stand [] Unable to read [] Unable to drive [] Unable to eat/drink [] Unable to sleep [] Unable to be with family [] Patient intubated [] Other: Summary Time spent with patient
[2020-10-24 11:34] LABS: Glucose Point of Care 213 mg/dL (70-110)
--- NOTE | 2020-10-24 12:02 | PM.CONSULT ---
Providers/Reason For Consult Consulting Physican/Specialty*: Otolaryngology Reason for Consult*: Status post right tonsillar biopsy Requesting Shereecian: Dr. Paredes Attending Physician: Davey Quarles MD Primary Care Provider: GABY Winchester History of Present Illness History of Present Illness Veronika Burnette is a 65 year old female who had a right tonsillar lesion and right neck mass and underwent a right tonsillar biopsy last Saturday on October 19, 2020. Patient subsequently developed neurologic symptoms with vertigo and nausea and vomiting and was found to have a vertebral artery distribution cerebrovascular accident. I was called to see the patient in regards to her biopsy site and to determine whether she could have anticoagulation therapy. Review of Systems Narrative: Patient has typical sore throat as expected. She is breathing easily. She is eating soft foods and drinking liquids. No sign of bleeding from the throat. Meds/Allergies Home Medications and Allergies Home Medications Medication Instructions Recorded Confirmed Last Taken Type aspirin 81 mg tablet,delayed 162 mg PO DAILY tab 09/22/19 10/23/20 10/15/20 History release furosemide 20 mg tablet 20 mg PO DAILY PRN 10/21/19 10/23/20 Unknown History clopidogrel 75 mg tablet 75 mg PO DAILY #90 tab 08/17/20 10/23/20 10/16/20 Rx escitalopram oxalate 5 mg tablet See Rx Instructions .ROUTE 08/17/20 10/23/20 10/22/20 Rx .COMPLEX #90 tab evolocumab 140 mg/mL subcutaneous 140 mg SUBCUT .EVERY 2 WEEKS #2 ml 08/17/20 10/23/20 Unknown Rx pen injector famotidine 20 mg tablet 20 mg PO BID #180 tab 08/17/20 10/23/20 Unknown Rx insulin glargine 100 unit/mL (3 10 unit SUBCUT DAILY 90 Days #15 ml 08/17/20 10/23/20 Unknown Rx mL) subcutaneous pen meclizine 25 mg tablet 25 mg PO TID PRN #90 tab 09/29/20 10/23/20 10/23/20 Rx ondansetron 4 mg disintegrating 4 mg PO TID PRN #30 tab 09/29/20 10/23/20 10/23/20 Rx tablet tramadol 50 mg PO Q6H PRN #50 tab 10/19/20 10/23/20 Unknown Rx metformin 1,000 mg tablet 1,000 mg PO BID 10/20/20 10/23/20 10/22/20 History ergocalciferol (vitamin D2) 1,250 1,250 mcg PO .weekly #12 cap 10/21/20 10/23/20 Unknown Rx mcg (50,000 unit) capsule glipizide 5 mg PO BID 10/23/20 10/23/20 10/22/20 History lisinopril 2.5 mg PO DAILY 10/23/20 10/23/20 10/22/20 History Allergies Allergy/AdvReac Type Severity Reaction Status Date / Time atorvastatin [From Lipitor] Allergy ADR-Cramping Verified 10/20/20 10:52 of the Muscles Current Medications Current Medications Generic Name Dose Route Start Last Admin Trade Name Freq PRN Reason Stop Dose Admin Aspirin 162 mg 10/24/20 09:00 10/24/20 08:04 Aspirin 81 Mg Ec Tablet PO 162 mg DAILY ROLY Administration Clopidogrel Bisulfate 75 mg 10/24/20 09:00 10/24/20 08:04 Clopidogrel 75 Mg Tablet PO 75 mg DAILY ROLY Administration Escitalopram Oxalate 10 mg 10/24/20 09:00 10/24/20 09:23 Escitalopram 10 Mg Tablet PO Not Given DAILY ROLY Heparin Sodium (Beef Lung) 5,000 unit 10/23/20 23:53 10/24/20 08:03 Heparin 5,000 Unit/Ml Inj 1 Ml SUBCUT 5,000 unit Q8H ROLY Administration Potassium Chloride/Sodium Chloride 20 meq in 1,000 mls @ 100 mls/hr 10/24/20 04:00 10/24/20 04:56 Sodium Chlor 0.9% + Kcl 20 Meq IV 100 mls/hr .Q10H ROLY Administration Insulin Aspart 0 unit 10/24/20 08:00 10/24/20 11:34 Insulin Aspart 100 Unit/1 Ml SUBCUT 4 unit TIDWM ROLY Administration Protocol Insulin Glargine 10 unit 10/23/20 23:53 10/24/20 01:06 Insulin Glargine 100 Units/1 Ml SUBCUT 10 unit BEDTIME ROLY Administration PFSH Acute PFSH: Medical History (Updated 10/23/20 @ 23:12 by Yenny Paredes MD) CAD (coronary artery disease) CVA (cerebral vascular accident) Diabetes mellitus 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 stroke/+ mutation, no history of prior clotting, not been on anticoagulation for this Hyperlipidemia on Repatha, has been intolerant of statins Vitamin D deficiency Surgical History (Updated 10/23/20 @ 23:12 by Yenny Paredes MD) 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 Hx of tubal ligation S/P tonsillectomy (10/19/20) right tonsil due to malignancy, biopsy Family History Mother Hypertension Social History (Updated 10/23/20 @ 23:13 by Yenny Paredes MD) Smoking and tobacco status: never smoked Second hand smoke exposure: No Alcohol intake: never Substance/Drug Use: never Lives independently: Yes Household members: none and other Details: recently had home health ordered Housing: House Marital status: / service: No Current occupational status: retired History of recent travel: No Current gender identity: Female Vitals/I&O/Wt Last Vital Signs Temp 98.2 F 10/24/20 08:00 Pulse 63 10/24/20 09:40 Resp 15 10/24/20 09:40 BP 109/62 10/24/20 09:40 Pulse Ox 96 10/24/20 09:40 10/23/20 10/24/20 10/24/20 22:59 06:59 14:59 Intake Total 0 / 0 50 / 50 Output Total 550 / 550 0 / 0 Balance -550 / -550 50 / 50 Weight last 48 hrs Weight 145 lb 8 oz Weight 147 lb Physical Exam Narrative: EXAM NARRATIVE: The tonsillectomy site and uvulectomy sites are covered with yellow eschar as is expected at this juncture following the tonsillectomy for biopsy. There is no sign of infection. Airway is widely patent. No sign of bleeding. A&P Assessment and plan (1) S/P tonsillectomy: Assessment: Patient is actually progressing well in regards to her right tonsillar biopsy/tonsillectomy. This done on 10/19/2020. She is not having any bleeding and there is no sign of infection. Airway is patent. She also had a uvulectomy done due to extreme edema and concern about airway following surgery. 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 Final pathology is still pending. Plan: We will continue with soft foods and liquids. She has an appointment to see me later this week in the office at which time hopefully we will refer her to oncology for definitive evaluation and subsequent definitive treatment. Continue to follow all the postoperative instructions given from the office. Status: Acute (2) Thrombosis of left vertebral artery: Status: Acute (3) Tonsillar neoplasm: Status: Acute (4) Lymphadenopathy, cervical: Status: Acute (5) Lymphadenopathy, mediastinal: Status: Acute Coding Level of Care Code Established Pt Acute Motor Polarizer for Chg Fwd Patient Type Established History Problem Focused Exam Problem Focused Medical Decision Making Straight Forward Diagnoses S/P tonsillectomy Z90.89 Thrombosis of left vertebral artery I65.02 Tonsillar neoplasm D49.0 Lymphadenopathy, cervical R59.0 Lymphadenopathy, mediastinal R59.0
[2020-10-24] MEDS: TRAMadol 50 mg Tablet PO (14:54)
[2020-10-24 20:23] LABS: Glucose Point of Care 235 mg/dL (70-110)
[2020-10-25] VITALS (128 sets, daily range): BP systolic 133–185; BP diastolic 75–110; PULSE 65–88; RESP 10–22; TEMP 36–36.9; O2SAT 89–99; BMI 25.5
[2020-10-25] MEDS: sodium chlor 0.9% + KCl 20 mEq 20 MEQ/1,000 ML BAG 100 MEQ IV (00:34)
[2020-10-25] MEDS: heparin 5,000 unit/mL INJ 1 mL 5000 UNIT SUBCUT ×4 (00:34→23:48)
[2020-10-25 04:18] LABS: Basophils % 0.6 %; Eosinophils # 0.1 10^3/uL (0.0-0.8); Eosinophils % 1.6 %; Hemoglobin 11.8 g/dL (11.5-15.3); Lymphocytes # 1.9 10^3/uL (0.8-4.8); Lymphocytes % 30.4 %; Mean Corpuscular HGB Conc 32.8 g/dL (30.0-36.0); Mean Corpuscular Hemoglobin 31.1 pg (28.0-34.0); Mean Corpuscular Volume 94.7 fL (81-99); Monocytes # 0.4 10^3/uL (0.2-0.9); Monocytes % 5.8 %; Neutrophils # 3.89 10^3/uL (1.8-7.7); Neutrophils % 61.4 %; Nucleated Red Blood Cells % 0 %; Platelet Count 329 10^3/cmm (130-400); Red Cell Distribution Width 12.5 % (12.1-15.1); White Blood Count 6.3 10^3/uL (4.0-10.0)
[2020-10-25 04:27] LABS: Alanine Aminotransferase 21 U/L (0-33); Albumin Level 3.5 g/dL (3.5-5.2); Alkaline Phosphatase 90 IU/L (35-105); Anion Gap 10.8 (5-19); Aspartate Amino Transferase 32 U/L (0-32); Blood Urea Nitrogen 16 mg/dL (8-23); Calcium 8.8 mg/dL (8.5-10.5); Carbon Dioxide 27 mmol/L (22-29); Chloride 106 mmol/L (98-107); Globulin 3.1 g/dL (1.3-4.6); Glomerular Filtration Rate 100.6 mL/min (90-130); Glucose 166 mg/dL (65-115); Magnesium 1.7 mg/dL (1.7-2.3); Osmolality Calculated 295 mOsm/kg (285-295); Potassium 3.8 mmol/L (3.5-5.1); Sodium 140 mmol/L (136-145); Total Bilirubin 0.2 mg/dL (0.15-1.2); Total Protein 6.6 g/dL (6.6-8.7)
--- NOTE | 2020-10-25 07:44 | P.PN_ITS ---
Subjective Subjective: Interval history: Veronika reports she is doing okay. She denies any discomfort. Nurse does not have anything to report from the night. Medications: Reviewed: Yes Vitals/I&O/Wt Last Vital Signs Temp 98.1 F 10/25/20 04:05 Pulse 68 10/25/20 06:09 Resp 14 10/25/20 06:05 BP 168/92 10/25/20 06:05 Pulse Ox 97 10/25/20 06:05 10/24/20 10/25/20 10/25/20 22:59 06:59 14:59 Intake Total 100 / 1185 978.333 / 2163.333 Output Total 600 / 600 350 / 950 300 / 300 Balance -500 / 585 628.333 / 1213.333 -300 / -300 Weight last 48 hrs Weight 69.598 kg Weight 65.998 kg Weight 66.678 kg Physical Exam Narrative: EXAM NARRATIVE: General exam is no apparent distress. Slow to respond but conversant HEENT: Pupils equally round. No nystagmus is noted. Neck is supple no lymphadenopathy or thyromegaly Cardiovascular regular rate and rhythm Lungs are clear bilaterally Abdomen is soft with positive bowel sounds Extremities no cyanosis clubbing or edema Data : 10/25/20 03:11 10/25/20 03:11 A&P Assessment and plan (1) Posterior circulation stroke: Subacute. Not candidate for TPA Admitting hospitalist clarified that she is not a candidate for intervention as well. Currently anticoagulation is not recommended. Patient does have known factor V Leiden mutation. Recently had tonsillectomy which is another risk factor for anticoagulation. 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 On Repatha chronically. Placed on statin on admission and will closely monitor. PT consultation, OT/ST Neurologic checks Echocardiogram reviewed and demonstrated EF of 62%, 1/4 diastolic dysfunction, no severe valvular abnormalities. Overall plan is to continue close monitoring following cerebellar stroke. Will likely need rehabilitation and discharge planning is working on this. Status: Acute (2) Thrombosis of left vertebral artery: See notations above Status: Acute (3) Factor V Leiden mutation: Has never had a clot herself, was identified through family and subsequent testing Status: Chronic (4) Tonsillar neoplasm: With metastases suspected as evidenced by mediastinal adenopathy. Final was positive for malignancy. Family has been made aware of confirmation of malignancy. Further pathology testing is pending. Status: Acute (5) S/P tonsillectomy: Postop day #6 right tonsillectomy with biopsy ENT is reviewed and no significant concerns regarding bleeding currently. Status: Acute (6) Hyperlipidemia: On Repatha, has been intolerant of statins due to muscle cramping Status: Chronic Qualifiers: Hyperlipidemia type: unspecified Qualified Code(s): E78.5 - Hyperlipidemia, unspecified (7) Diabetes mellitus: Chronically on insulin therapy, glipizide and Metformin Continue sliding scale insulin currently Status: Chronic Qualifiers: Diabetes mellitus type: type 2 Diabetes mellitus intermodal customer service insulin use: with detention use Diabetes mellitus complication status: with hyperglycemia Qualified Code(s): E11.65 - Type 2 diabetes mellitus with hyperglycemia; Z79.4 - 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 transplanted heart: [place] heart Associated angina: without angina Qualified Code(s): I25.10 - Atherosclerotic heart disease of [place] coronary artery without angina pectoris Additional A&P Information Full code May transfer out of ICU. Heparin for DVT prophylaxis Attestations Medical Necessity Statement*: Needs continued hospitalization for close monitoring following cerebellar stroke and will likely need placement for rehabilitation. Coding Level of Care Code Acute [place] [facility] for [facility] Fwd Diagnoses Posterior circulation stroke I63.50 Thrombosis of left vertebral artery I65.02 Factor V Leiden mutation D68.51 Tonsillar neoplasm D49.0 S/P tonsillectomy Z90.89 Hyperlipidemia E78.5 Hyperlipidemia type: unspecified Diabetes mellitus E11.65; Z79.4 Diabetes mellitus type: type 2 Diabetes mellitus intermodal customer service insulin use: with detention use Diabetes mellitus complication status: with hyperglycemia Hypertension I10 Hypertension type: essential hypertension CAD (coronary artery disease) I25.10 Coronary Disease-Associated Artery/Lesion type: unspecified vessel or lesion type [place] vs. transplanted heart: [place] heart Associated angina: without angina
[2020-10-25 07:51] LABS: Glucose Point of Care 145 mg/dL (70-110)
[2020-10-25] MEDS: escitalopram 10 mg Tablet PO (08:16)
[2020-10-25] MEDS: clopidogrel 75 mg Tablet PO (08:16)
[2020-10-25] MEDS: aspirin 81 mg EC Tablet 162 MG PO (08:43)
--- NOTE | 2020-10-25 10:36 | PC.CHAP ---
Pastoral Care Encounter/Spiritual Assessment Type of Contact [] Declined mill operator helper visit [] Patient/Family/Request visit [] Outpatient visit [] Follow-up visit [] Physician referral [] Code/Alert [x] Routine visit [] Staff referral [] Actively dying [x] Patient sleeping [] Family support [] [] Out of room [] Palliative care [] [] Receiving care in room [] Pre-surgical visit [] Trauma [] Long length of stay [x] ICU visit [] Other: Relational/Emotional Strength [] Patient feels connected with others/family/visitors/staff [] Distress [] Loneliness/isolation [] Abandonment Spirituality of Patient [] Person of Dedra [] Attends Baptism of their Dedra [] Believes in Prayer [] Reads Bible or Christianity materials [] There are Spiritual issues to be addressed Catering Coordinator Interventions [x] Prayer [] Active listening [] Non-anxious presence [] Spiritual/emotional support [] Crisis/trauma care [] Spiritual counseling [] Bereavement support [] Provided bereavement packet [] Provided Bible/devotional materials [] Provided toy/stuffed animal, coloring book to patient or family member [] Provided Communion [] Anointing/[place]cy [] Salvation [x] Completed spiritual assessment [] Other: Impact on Illness or Injury [] Angry [] Fearful [] Anxious [] Often cries [] Exhaustion [] Unable to work [] Unable to attend buddhism [] Unable to walk/stand [] Unable to read [] Unable to drive [] Unable to eat/drink [] Unable to sleep [] Unable to be with family [] Patient intubated [] Other: Summary Time spent with patient
[2020-10-25] MEDS: sodium chlor 0.9% + KCl 20 mEq 20 MEQ/1,000 ML BAG 50 MEQ IV (10:43)
--- NOTE | 2020-10-25 10:57 | PC.NURSE ---
Called and gave report to nurse Kirk at 0930 then transferred patient to [facility] via wheelchair at 1015. Items taken to [facility] with the patient included medications and personal belongings. Vitals within normal limits, patient was stable, and transfer was uneventful.
--- NOTE | 2020-10-25 11:48 | PC.NURSE ---
Carolina at [facility] called to check for update on patient. Her number is [phone].
[2020-10-25 12:30] LABS: Glucose Point of Care 305 mg/dL (70-110)
--- NOTE | 2020-10-25 12:48 | PC.NURSE ---
Medications administered without scanning due to WIFI being down. 2 patient identifiers used. verified with Yelena PAL
--- NOTE | 2020-10-25 14:55 | PC.NURSE ---
patient is diabetic, nutrition called and said patient need sugar free syrup tomorrow morning and Kavitha said her diet doesn't reflect that. flex o writer operator added const carb diet to patient's diet order.
[2020-10-25 17:54] LABS: Glucose Point of Care 254 mg/dL (70-110)
[2020-10-25] MEDS: TRAMadol 50 mg Tablet PO (18:00)
--- NOTE | 2020-10-25 19:45 | PC.NURSE ---
CHECKED PT FOR INC. AND PT WAS DRY.
[2020-10-25 20:54] LABS: Glucose Point of Care 283 mg/dL (70-110)
[2020-10-25] MEDS: atorvastatin 40 mg Tablet 20 MG PO (22:09)
[2020-10-25] MEDS: insulin glargine 100 units/1 mL 10 UNIT SUBCUT (22:34)
[2020-10-26] VITALS (14 sets, daily range): BP systolic 116–174; BP diastolic 56–91; PULSE 70–78; RESP 16–18; TEMP 36.4–37.2; O2SAT 95–99
[2020-10-26] MEDS: sodium chlor 0.9% + KCl 20 mEq 20 MEQ/1,000 ML BAG 50 MEQ IV (05:56)
[2020-10-26 06:41] LABS: Glucose Point of Care 137 mg/dL (70-110)
--- NOTE | 2020-10-26 10:08 | PC.NUTR ---
NUTR CONSULT: Stroke consult received, reviewed pt charts. completed assessment.
--- NOTE | 2020-10-26 10:25 | P.PN_ITS ---
Subjective Subjective: Interval history: Veronika reports she is doing okay. Her balance is still very poor. She denies any pain. Medications: Reviewed: Yes Vitals/I&O/Wt Last Vital Signs Temp 99.0 F 10/26/20 07:16 Pulse 78 10/26/20 07:16 Resp 18 10/26/20 07:16 BP 127/56 10/26/20 07:16 Pulse Ox 97 10/26/20 07:16 10/25/20 10/26/20 10/26/20 22:59 06:59 14:59 Intake Total 240 / 1360 960.833 / 2320.833 Balance 240 / 760 960.833 / 1720.833 Weight last 48 hrs Weight 71.668 kg Weight 69.598 kg Physical Exam Narrative: EXAM NARRATIVE: General exam is no apparent distress. Slow to respond but this has improved significantly from 2 days ago HEENT: Pupils equally round. No nystagmus is noted. Neck is supple no lymphadenopathy or thyromegaly Cardiovascular regular rate and rhythm Lungs are clear bilaterally Abdomen is soft with positive bowel sounds Extremities no cyanosis clubbing or edema Data : 10/25/20 03:11 10/25/20 03:11 A&P Assessment and plan (1) Posterior circulation stroke: Subacute. Not candidate for TPA Admitting hospitalist clarified that she is not a candidate for intervention as well. Currently anticoagulation is not recommended. Patient does have known factor V Leiden mutation. Recently had tonsillectomy which is another risk factor for anticoagulation. 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 On Repatha chronically. Placed on statin on admission and will closely monitor. PT consultation, OT/ST Neurologic checks Echocardiogram reviewed and demonstrated EF of 62%, 1/4 diastolic dysfunction, no severe valvular abnormalities. Overall plan is to continue close monitoring following cerebellar stroke. Will likely need rehabilitation and discharge planning is working on this. She is now medically stable for discharge. She will need follow-up with vascular surgery within the next 2 to 4 weeks to determine timing or need of potential right carotid endarterectomy. Status: Acute (2) Thrombosis of left vertebral artery: See notations above Status: Acute (3) Factor V Leiden mutation: Has never had a clot herself, was identified through family and subsequent testing Status: Chronic (4) Tonsillar neoplasm: With metastases suspected as evidenced by mediastinal adenopathy. Final was positive for malignancy. Family has been made aware of confirmation of malignancy. Further pathology testing is pending. Status: Acute (5) S/P tonsillectomy: Postop day #7 right tonsillectomy with biopsy ENT is reviewed and no significant concerns regarding bleeding currently. Status: Acute (6) Hyperlipidemia: On Repatha, has been intolerant of statins due to muscle cramping Status: Chronic Qualifiers: Hyperlipidemia type: unspecified Qualified Code(s): E78.5 - Hyperlipidemia, unspecified (7) Diabetes mellitus: Chronically on insulin therapy, glipizide and Metformin Continue sliding scale insulin currently Status: Chronic Qualifiers: Diabetes mellitus type: type 2 Diabetes mellitus intermediate teacher insulin use: with intermediate teacher use Diabetes mellitus complication status: with hyperglycemia Qualified Code(s): E11.65 - Type 2 diabetes mellitus with hyperglycemia; Z79.4 - intermediate teacher (current) use of insulin (8) Hypertension: Permissive hypertension currently Status: Chronic Qualifiers: Hypertension type: essential hypertension Qualified Code(s): I10 - Essential (primary) hypertension (9) CAD (coronary artery disease): History of four-vessel bypass Status: Chronic Qualifiers: Coronary Disease-Associated Artery/Lesion type: unspecified vessel or lesion type [place] vs. transplanted heart: [place] heart Associated angina: without angina Qualified Code(s): I25.10 - Atherosclerotic heart disease of [place] coronary artery without angina pectoris Additional A&P Information Full code Heparin for DVT prophylaxis Attestations Medical Necessity Statement*: Needs continued hospitalization for close follow-up following CVA. Needs rehabilitation and this is being arranged. Will need evaluation for right carotid endarterectomy in the future but has compounding issue of right tonsillar malignancy that will require follow-up as well. Coding Level of Care Code Acute Metal Precision Machine Assembler for g Fwd Diagnoses Posterior circulation stroke I63.50 Thrombosis of left vertebral artery I65.02 Factor V Leiden mutation D68.51 Tonsillar neoplasm D49.0 S/P tonsillectomy Z90.89 Hyperlipidemia E78.5 Hyperlipidemia type: unspecified Diabetes mellitus E11.65; Z79.4 Diabetes mellitus type: type 2 Diabetes mellitus intermediate teacher insulin use: with intermediate teacher use Diabetes mellitus complication status: with hyperglycemia Hypertension I10 Hypertension type: essential hypertension CAD (coronary artery disease) I25.10 Coronary Disease-Associated Artery/Lesion type: unspecified vessel or lesion type [place] vs. transplanted heart: [place] heart Associated angina: without angina
[2020-10-26 11:06] LABS: Glucose Point of Care 257 mg/dL (70-110)
[2020-10-26] MEDS: escitalopram 10 mg Tablet PO (11:15)
[2020-10-26] MEDS: aspirin 81 mg EC Tablet 162 MG PO (11:15)
[2020-10-26] MEDS: heparin 5,000 unit/mL INJ 1 mL 5000 UNIT SUBCUT ×2 (11:15→17:37)
[2020-10-26] MEDS: clopidogrel 75 mg Tablet PO (11:15)
[2020-10-26] MEDS: TRAMadol 50 mg Tablet PO (13:56)
[2020-10-26 16:54] LABS: Glucose Point of Care 247 mg/dL (70-110)
[2020-10-26] MEDS: atorvastatin 40 mg Tablet 20 MG PO (20:47)
[2020-10-26] MEDS: insulin glargine 100 units/1 mL 10 UNIT SUBCUT (20:48)
[2020-10-26 20:57] LABS: Glucose Point of Care 242 mg/dL (70-110)
--- NOTE | 2020-10-26 21:19 | PC.NURSE ---
CHECKED PT BRIEF AND PT IS DRY.
--- NOTE | 2020-10-26 22:10 | PC.NURSE ---
CHECKED PT BRIEF AND PT IS DRY.
[2020-10-27] VITALS (14 sets, daily range): BP systolic 121–180; BP diastolic 60–96; PULSE 69–83; RESP 15–19; TEMP 36.5–37.2; O2SAT 95–99
[2020-10-27] MEDS: heparin 5,000 unit/mL INJ 1 mL 5000 UNIT SUBCUT ×4 (01:09→23:39)
[2020-10-27] MEDS: sodium chlor 0.9% + KCl 20 mEq 20 MEQ/1,000 ML BAG 50 MEQ IV (01:58)
[2020-10-27 05:30] LABS: Basophils % 0.3 %; Eosinophils # 0.2 10^3/uL (0.0-0.8); Eosinophils % 2.5 %; Hematocrit 34.5 % (37.0-47.0); Hemoglobin 11.7 g/dL (11.5-15.3); Lymphocytes # 2.2 10^3/uL (0.8-4.8); Lymphocytes % 35.1 %; Mean Corpuscular HGB Conc 33.9 g/dL (30.0-36.0); Mean Corpuscular Hemoglobin 31.1 pg (28.0-34.0); Mean Corpuscular Volume 91.8 fL (81-99); Mean Platelet Volume 9.6 fL (7.4-10.4); Monocytes # 0.5 10^3/uL (0.2-0.9); Monocytes % 7.7 %; Neutrophils # 3.45 10^3/uL (1.8-7.7); Neutrophils % 54.2 %; Nucleated Red Blood Cells % 0 %; Platelet Count 320 10^3/cmm (130-400); Red Blood Count 3.76 10^6/uL (4.1-5.3); Red Cell Distribution Width 12.4 % (12.1-15.1); White Blood Count 6.4 10^3/uL (4.0-10.0)
[2020-10-27 05:46] LABS: Anion Gap 10.8 (5-19); Blood Urea Nitrogen 8 mg/dL (8-23); Calcium 8.4 mg/dL (8.5-10.5); Carbon Dioxide 26 mmol/L (22-29); Chloride 104 mmol/L (98-107); Glomerular Filtration Rate 124.2 mL/min (90-130); Glucose 154 mg/dL (65-115); Osmolality Calculated 285 mOsm/kg (285-295); Potassium 3.8 mmol/L (3.5-5.1); Sodium 137 mmol/L (136-145)
[2020-10-27 07:00] LABS: Glucose Point of Care 151 mg/dL (70-110)
[2020-10-27] MEDS: clopidogrel 75 mg Tablet PO (08:25)
[2020-10-27] MEDS: aspirin 81 mg EC Tablet 162 MG PO (08:25)
[2020-10-27] MEDS: escitalopram 10 mg Tablet PO (08:25)
[2020-10-27 10:49] LABS: Glucose Point of Care 312 mg/dL (70-110)
--- NOTE | 2020-10-27 14:12 | PM.PN ---
Subjective Subjective: Interval history: Needed denies any complaints. She is slow to respond. I visited with physical therapy regarding her condition and they report she could definitely benefit from inpatient rehabilitation secondary to increased fall risk as well as slow mentation status CVA Medications: Reviewed: Yes Vitals/I&O/Wt Last Vital Signs Temp 98.7 F 10/27/20 11:26 Pulse 77 10/27/20 11:26 Resp 18 10/27/20 11:26 BP 121/65 10/27/20 11:26 Pulse Ox 95 10/27/20 11:26 10/26/20 10/27/20 10/27/20 22:59 06:59 14:59 Intake Total 120 / 120 1000 / 1120 650 / 650 Output Total 300 / 300 Balance 120 / 120 1000 / 1120 350 / 350 Weight last 48 hrs Weight 72.393 kg Weight 71.668 kg Physical Exam Narrative: EXAM NARRATIVE: General exam is no apparent distress. Slow to respond today Neck is supple no lymphadenopathy or thyromegaly Cardiovascular regular rate and rhythm Lungs are clear bilaterally Abdomen is soft with positive bowel sounds Extremities no cyanosis clubbing or edema Neurologic: Slow to respond. Therapy indicates significant balance issues on ambulation. No obvious cerebellar dysfunction on testing in bed. Data : 10/27/20 04:57 10/27/20 04:57 A&P Assessment and plan (1) Posterior circulation stroke: Subacute. Not candidate for TPA Admitting hospitalist clarified that she is not a candidate for intervention as well. Currently anticoagulation is not recommended. Patient does have known factor V Leiden mutation. Recently had tonsillectomy which is another risk factor for anticoagulation. 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 On Repatha chronically. Placed on statin on admission and will closely monitor. PT consultation, OT/ST Neurologic checks Echocardiogram reviewed and demonstrated EF of 62%, 1/4 diastolic dysfunction, no severe valvular abnormalities. Overall plan is to continue close monitoring following cerebellar stroke. Will likely need rehabilitation and discharge planning is working on this. She is medically stable for discharge. She will need follow-up with vascular surgery within the next 2 to 4 weeks to determine timing or need of potential right carotid endarterectomy. Status: Acute (2) Thrombosis of left vertebral artery: See notations above Status: Acute (3) Factor V Leiden mutation: Has never had a clot herself, was identified through family and subsequent testing Status: Chronic (4) Tonsillar neoplasm: With metastases suspected as evidenced by mediastinal adenopathy. Final was positive for malignancy. Family has been made aware of confirmation of malignancy. Further pathology testing is pending. Status: Acute (5) S/P tonsillectomy: Postop day #8 right tonsillectomy with biopsy ENT is reviewed and no significant concerns regarding bleeding currently. Status: Acute (6) Hyperlipidemia: On Repatha, has been intolerant of statins due to muscle cramping Status: Chronic Qualifiers: Hyperlipidemia type: unspecified Qualified Code(s): E78.5 - Hyperlipidemia, unspecified (7) Diabetes mellitus: Chronically on insulin therapy, glipizide and Metformin Continue sliding scale insulin currently Status: Chronic Qualifiers: Diabetes mellitus type: type 2 Diabetes mellitus termite inspector insulin use: with termite inspector use Diabetes mellitus complication status: with hyperglycemia Qualified Code(s): E11.65 - Type 2 diabetes mellitus with hyperglycemia; Z79.4 - intermediate (current) use of insulin (8) Hypertension: Permissive hypertension currently Status: Chronic Qualifiers: Hypertension type: essential hypertension Qualified Code(s): I10 - Essential (primary) hypertension (9) CAD (coronary artery disease): History of four-vessel bypass Status: Chronic Qualifiers: Coronary Disease-Associated Artery/Lesion type: unspecified vessel or lesion type [place] vs. transplanted heart: [place] heart Associated angina: without angina Qualified Code(s): I25.10 - Atherosclerotic heart disease of [place] coronary artery without angina pectoris Additional A&P Information Full code Heparin for DVT prophylaxis Awaiting placement Attestations Medical Necessity Statement*: Needs continued hospitalization pending placement Coding Level of Care Code Acute Sales And Marketing Agent for [facility] Fwd Diagnoses Posterior circulation stroke I63.50 Thrombosis of left vertebral artery I65.02 Factor V Leiden mutation D68.51 Tonsillar neoplasm D49.0 S/P tonsillectomy Z90.89 Hyperlipidemia E78.5 Hyperlipidemia type: unspecified Diabetes mellitus E11.65; Z79.4 Diabetes mellitus type: type 2 Diabetes mellitus termite inspector insulin use: with senior living use Diabetes mellitus complication status: with hyperglycemia Hypertension I10 Hypertension type: essential hypertension CAD (coronary artery disease) I25.10 Coronary Disease-Associated Artery/Lesion type: unspecified vessel or lesion type [place] vs. transplanted heart: [place] heart Associated angina: without angina
[2020-10-27 17:08] LABS: Glucose Point of Care 290 mg/dL (70-110)
[2020-10-27] MEDS: TRAMadol 50 mg Tablet PO (20:57)
[2020-10-27 21:04] LABS: Glucose Point of Care 246 mg/dL (70-110)
[2020-10-27] MEDS: insulin glargine 100 units/1 mL 10 UNIT SUBCUT (21:05)
[2020-10-28] VITALS (10 sets, daily range): BP systolic 131–165; BP diastolic 67–93; PULSE 72–90; RESP 16–18; TEMP 36.2–36.8; O2SAT 94–98
[2020-10-28 06:28] LABS: Glucose Point of Care 182 mg/dL (70-110)
[2020-10-28] MEDS: clopidogrel 75 mg Tablet PO (09:40)
[2020-10-28] MEDS: escitalopram 10 mg Tablet PO (09:40)
[2020-10-28] MEDS: heparin 5,000 unit/mL INJ 1 mL 5000 UNIT SUBCUT ×2 (09:40→16:12)
[2020-10-28] MEDS: aspirin 81 mg EC Tablet 162 MG PO (09:40)
[2020-10-28 12:01] LABS: Glucose Point of Care 374 mg/dL (70-110)
--- NOTE | 2020-10-28 12:26 | PC.CHAP ---
Pastoral Care Encounter/Spiritual Assessment Type of Contact [] Declined canal tender visit [] Patient/Family/Request visit [] Outpatient visit [] Follow-up visit [] Physician referral [] Code/Alert [xx] Routine visit [] Staff referral [] Actively dying [] Patient sleeping [] Family support [] [] Out of room [] Palliative care [] [] Receiving care in room [] Pre-surgical visit [] Trauma [] Long length of stay [] ICU visit [] Other: Relational/Emotional Strength [] Patient feels connected with others/family/visitors/staff [] Distress [] Loneliness/isolation [] Abandonment Spirituality of Patient [] Person of Dedra [] Attends Spiritism of their Dedra [xx] Believes in Prayer [] Reads Bible or Yarsanism materials [] There are Spiritual issues to be addressed Instructor Nurse Interventions [xx] Prayer [xx] Active listening [xx] Non-anxious presence [] Spiritual/emotional support [] Crisis/trauma care [] Spiritual counseling [] Bereavement support [] Provided bereavement packet [] Provided Bible/devotional materials [] Provided toy/stuffed animal, coloring book to patient or family member [] Provided Communion [] Anointing/[place] [] Salvation [xx] Completed spiritual assessment [] Other: Impact on Illness or Injury [] Angry [] Fearful [] Anxious [] Often cries [] Exhaustion [] Unable to work [] Unable to attend confucianism [] Unable to walk/stand [] Unable to read [] Unable to drive [] Unable to eat/drink [] Unable to sleep [] Unable to be with family [] Patient intubated [] Other: Summary Patient had a strke making communication somewhat difficult. She was also drowsy. She did agree to prayer for her. Time spent with patient 5 minutes
--- NOTE | 2020-10-28 14:34 | P.TS_ITS ---
Transfer Summary Providers Date of Admission: 10/23/20 20:05 Date of Discharge: 10/28/20 Attending Provider at Admission: Yenny Paredes MD Attending Provider at Transfer: Davey Quarles MD Primary Care Provider: GABY Winchester Anticipated Date of Transfer: Anticipated date of transfer: 10/28/20 Receiving Facility & Provider: Receiving Provider: [] Receiving facility: [] Diagnoses at Discharge Discharge Diagnosis (1) Posterior circulation stroke: Status: Acute (2) Thrombosis of left vertebral artery: Status: Acute (3) Factor V Leiden mutation: Status: Chronic Permanent problem details: identified due to sister having stroke/+ mutation, no history of prior clotting, not been on anticoagulation for this (4) Tonsillar neoplasm: Status: Acute (5) S/P tonsillectomy: Status: Acute Permanent problem details: right tonsil due to malignancy, biopsy (6) Hyperlipidemia: Status: Chronic Permanent problem details: on Repatha, has been intolerant of statins Qualifiers: Hyperlipidemia type: unspecified Qualified Code(s): E78.5 - Hyperlipidemia, unspecified (7) Diabetes mellitus: Status: Chronic Qualifiers: Diabetes mellitus type: type 2 Diabetes mellitus termite control representative insulin use: with termite control representative use Diabetes mellitus complication status: with hyperglycemia Qualified Code(s): E11.65 - Type 2 diabetes mellitus with hyperglycemia; Z79.4 - [facility] (current) use of insulin (8) Hypertension: Status: Chronic Qualifiers: Hypertension type: essential hypertension Qualified Code(s): I10 - Essential (primary) hypertension (9) CAD (coronary artery disease): Status: Chronic Qualifiers: Coronary Disease-Associated Artery/Lesion type: unspecified vessel or lesion type [place] vs. transplanted heart: [place] heart Associated angina: without angina Qualified Code(s): I25.10 - Atherosclerotic heart disease of [place] coronary artery without angina pectoris Reason for Visit Reason for Visit: poss stroke Hospital Course Hospital Course Veronika is a 65-year-old white female who presented to the hospital with history of dizziness, difficulty speaking, right-sided facial droop, vomiting. It was identified that she had had a subacute CVA, cerebellum with thrombus in the V4 segment of the left vertebral artery Li as well as significant right carotid stenosis. She was initially placed in the ICU. She had recently been off her antiplatelet medication for tonsillectomy. Pathology shows malignancy, which will need to be followed up on as an outpatient. Plavix and aspirin were restarted. Statin initiated. Rehabilitation initiated. ENT consult occurred in case anticoagulation would be needed and there was no direct contraindication to anticoagulation. During her hospital course she gradually had some improvement but it was evident she had significant balance and processing issues and could benefit from rehabilitation. This was set up at [facility], under the care of Dr. Estrada. She will transition there today. She was not a candidate for TPA when she came in. No thrombectomy was recommended or possible per neurology stroke alert team. Echocardiogram demonstrated no thrombus, severe valvular abnormalities and had preserved EF. She will also need follow-up in regards to her carotid stenosis on the right within the next 4 to 6 weeks. 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 This will need followed up as an outpatient with oncology consultation within the next several weeks. Physical Exam Narrative: EXAM NARRATIVE: General exam no apparent distress Neurologic exam: Slow to respond, strength is symmetric. Neck is supple without lymphadenopathy or thyromegaly Cardiovascular regular in rhythm without murmur Lungs clear Abdomen is soft with positive bowel sounds Extremities no cyanosis clubbing or edema TS Data Data Completed and Pending: Completed Studies During Hospitalization Category Date Time Status CT angio headneck * [id number] Stat Cat Scan 10/23/20 16:[address] head wo con* 7 0450 Stat Cat Scan 10/23/20 16:53 Completed CV echo complete* [id number] Routine Ultrasound 10/24/20 06:00 Completed Labs from last 24 hours 10/28/20 10/28/20 10/27/20 11:24 06:17 20:49 POC Glucose 374 H 182 H 246 H 10/27/20 17:00 POC Glucose 290 H Vitals: Last Vital Signs Temp 97.7 F 10/28/20 11:27 Pulse 90 10/28/20 11:27 Resp 16 10/28/20 11:27 BP 132/82 10/28/20 11:27 Pulse Ox 97 10/28/20 11:27 TS Medications Medications Home Medications aspirin 81 mg tablet,delayed release 162 mg PO DAILY tab 09/22/19 [History Confirmed 10/23/20] furosemide 20 mg tablet 20 mg PO DAILY PRN 10/21/19 [History Confirmed 10/23/20] clopidogrel 75 mg tablet 75 mg PO DAILY #90 tab 08/17/20 [Rx Confirmed 10/23/20] escitalopram oxalate 5 mg tablet See Rx Instructions .ROUTE .COMPLEX #90 tab 08/17/20 [Rx Confirmed 10/23/20] evolocumab 140 mg/mL subcutaneous pen injector 140 mg SUBCUT .EVERY 2 WEEKS #2 ml 08/17/20 [Rx Confirmed 10/23/20] famotidine 20 mg tablet 20 mg PO BID #180 tab 08/17/20 [Rx Confirmed 10/23/20] insulin glargine 100 unit/mL (3 mL) subcutaneous pen 10 unit SUBCUT DAILY 90 Days #15 ml 08/17/20 [Rx Confirmed 10/23/20] meclizine 25 mg tablet 25 mg PO TID PRN #90 tab 09/29/20 [Rx Confirmed 10/23/20] ondansetron 4 mg disintegrating tablet 4 mg PO TID PRN #30 tab 09/29/20 [Rx Confirmed 10/23/20] tramadol 50 mg PO Q6H PRN #50 tab 10/19/20 [Rx Confirmed 10/23/20] metformin 1,000 mg tablet 1,000 mg PO BID 10/20/20 [History Confirmed 10/23/20] ergocalciferol (vitamin D2) 1,250 mcg (50,000 unit) capsule 1,250 mcg PO .weekly #12 cap 10/21/20 [Rx Confirmed 10/23/20] glipizide 5 mg PO BID 10/23/20 [History Confirmed 10/23/20] lisinopril 2.5 mg PO DAILY 10/23/20 [History Confirmed 10/23/20] Active Medications Acetaminophen (Acetaminophen 325 Mg Tablet) 650 mg PO Q6H PRN PRN Reason: Fever/mild pain is can take po Aspirin (Aspirin 81 Mg Ec Tablet) 162 mg PO DAILY PENDING SALE TO [facility] Last Admin: 10/28/20 09:40 Dose: 162 mg Documented by: Atorvastatin Calcium (Atorvastatin 40 Mg Tablet) 20 mg PO BEDTIME ROLY Last Admin: 10/27/20 20:58 Dose: Not Given Documented by: Clopidogrel Bisulfate (Clopidogrel 75 Mg Tablet) 75 mg PO DAILY PENDING SALE TO [facility] Last Admin: 10/28/20 09:40 Dose: 75 mg Documented by: Dextrose (Dextrose 50% Syringe 50 Ml) 25 ml IVP ONCE PRN; Protocol PRN Reason: hypoglycemia protocol Dextrose (Dextrose 50% Syringe 50 Ml) 50 ml IVP PRN PRN; Protocol PRN Reason: hypoglycemia protocol Escitalopram Oxalate (Escitalopram 10 Mg Tablet) 10 mg PO DAILY PENDING SALE TO [facility] Last Admin: 10/28/20 09:40 Dose: 10 mg Documented by: Glucagon (Glucagon 1 Mg/Ml Inj 1 Ml) 1 mg IM ONCE PRN; Protocol PRN Reason: Adult Acute Hypoglycemia Prot. Heparin Sodium (Beef Lung) (Heparin 5,000 Unit/Ml Inj 1 Ml) 5,000 unit SUBCUT Q8H ROLY Last Admin: 10/28/20 09:40 Dose: 5,000 unit Documented by: Dextrose (D5w) 500 mls @ 100 mls/hr IV ONCE PRN; Protocol PRN Reason: Adult Acute Hypoglycemia Prot Insulin Aspart (Insulin Aspart 100 Unit/1 Ml) 0 unit SUBCUT BEDTIME ROLY; Protocol Last Admin: 10/27/20 21:04 Dose: 3 unit Documented by: Insulin Aspart (Insulin Aspart 100 Unit/1 Ml) 0 unit SUBCUT TIDWM ROLY; Protocol Last Admin: 10/28/20 12:40 Dose: 12 unit Documented by: Insulin Glargine (Insulin Glargine 100 Units/1 Ml) 10 unit SUBCUT BEDTIME ROLY Last Admin: 10/27/20 21:05 Dose: 10 unit Documented by: Meclizine HCl (Meclizine 25 Mg Tablet) 25 mg PO TID PRN PRN Reason: dizziness Promethazine HCl (Promethazine 25 Mg Supp) 25 mg RI Q6H PRN PRN Reason: persistent n/v after zofran Tramadol HCl (Tramadol 50 Mg Tablet) 50 mg PO Q6H PRN PRN Reason: Moderate Pain/able to swallow Last Admin: 10/27/20 20:57 Dose: 50 mg Documented by: Discharge Plan Discharge Patient Disposition: Xfer Inpatient Rehab Fac Condition: Stable Prescriptions: New Januvia 50 mg tablet 50 mg PO DAILY Qty: 30 RF: 0 atorvastatin 40 mg Tablet 20 mg PO BEDTIME Qty: 30 RF: 0 Continued metformin 1,000 mg tablet 1,000 mg PO BID RF: 0 aspirin [Adult Low Dose Aspirin] 81 mg tablet,delayed release (DR/EC) 162 mg PO DAILY RF: 0 clopidogrel [Plavix] 75 mg tablet 75 mg PO DAILY Qty: 90 RF: 0 escitalopram oxalate 5 mg tablet See Rx Instructions .ROUTE .COMPLEX Qty: 90 RF: 0 famotidine [Pepcid] 20 mg tablet 20 mg PO BID Qty: 180 RF: 0 Lantus Solostar U-100 Insulin 100 unit/mL (3 mL) insulin pen 10 unit SUBCUT DAILY 90 Days Qty: 15 RF: 0 ondansetron 4 mg tablet,disintegrating 4 mg PO TID PRN (Reason: nausea and vomiting) Qty: 30 RF: 0 ergocalciferol (vitamin D2) [Vitamin D2] 1,250 mcg (50,000 unit) capsule 1,250 mcg PO .weekly Qty: 12 RF: 0 tramadol 50 mg tablet 50 mg PO Q6H PRN (Reason: pain) Qty: 50 RF: 0 lisinopril 2.5 mg tablet 2.5 mg PO DAILY RF: 0 Discontinued furosemide 20 mg tablet 20 mg PO DAILY PRN (Reason: edema) RF: 0 Repatha SureClick 140 mg/mL pen injector 140 mg SUBCUT .EVERY 2 WEEKS Qty: 2 RF: 11 meclizine 25 mg tablet 25 mg PO TID PRN (Reason: dizziness) Qty: 90 RF: 0 glipizide 5 mg tablet 5 mg PO BID RF: 0 Discharge Orders: Transfer Out of Facility (Order); Ordered 10/28/20 Ordered By: Davey Quarles Referrals: Anoop Perry MD [Hospitalist] - 2 weeks (SCC neck) Discharge Diet: Diabetic Patient Instructions: Self Care Measures After a Stroke (DC) Activity Restrictions/Additional Instructions: Will need follow-up for her tonsillar malignancy as well. Biopsy demonstrated squamous cell carcinoma, poorly differentiated. Transfer Attestations Time Spent in Transfer Care*: greater than 30 min Quality Metrics Clinical Quality Measures: During this hospital stay, did patient experience: Stroke Contraindication to Antithrombotic: Antithrombotic prescribed Contraindication to Anticoagulation: Other (not indicated) Contraindication to Statin: Statin prescribed Coding Level of Care Code Acute French Drawer for [facility] Fwd Diagnoses Posterior circulation stroke I63.50 Thrombosis of left vertebral artery I65.02 Factor V Leiden mutation D68.51 Tonsillar neoplasm D49.0 S/P tonsillectomy Z90.89 Hyperlipidemia E78.5 Hyperlipidemia type: unspecified Diabetes mellitus E11.65; Z79.4 Diabetes mellitus type: type 2 Diabetes mellitus termite control representative insulin use: with [facility] use Diabetes mellitus complication status: with hyperglycemia Hypertension I10 Hypertension type: essential hypertension CAD (coronary artery disease) I25.10 Coronary Disease-Associated Artery/Lesion type: unspecified vessel or lesion type [place] vs. transplanted heart: [place] heart Associated angina: without angina
[2020-10-28] MEDS: acetaminophen 325 mg Tablet 650 MG PO (16:12)
--- NOTE | 2020-10-28 16:19 | PC.NURSE ---
EMS called to set up transportation to [facility].
--- NOTE | 2020-10-28 16:47 | PC.NURSE ---
Pt left the floor with EMS.
== END 2020-10-28 16:30 | DRG 65 ==
LOC: ER 17:18 → ICU 21:57 → MEDSURG 10-25 10:36
PROVIDERS: Admitting Provider Hospitalist; Emergency Provider Family Medicine; PCP Nurse Practitioner Family; Visit Provider Internal Medicine
DX: I63.012 Cerebral infarction due to thrombosis of left vertebral artery (principal); I69.359 Hemiplegia and hemiparesis following cerebral infarction affecting unspecified side; D68.51 Activated protein C resistance; R29.810 Facial weakness; R29.703 NIHSS score 3; C09.9 Malignant neoplasm of tonsil, unspecified; R59.0 Localized enlarged lymph nodes; I65.21 Occlusion and stenosis of right carotid artery; I25.10 Atherosclerotic heart disease of native coronary artery without angina pectoris; E11.9 Type 2 diabetes mellitus without complications; E78.5 Hyperlipidemia, unspecified; E55.9 Vitamin D deficiency, unspecified; Z95.1 Presence of aortocoronary bypass graft; Z79.82 Long term (current) use of aspirin; Z79.4 Long term (current) use of insulin; Z79.02 Long term (current) use of antithrombotics/antiplatelets
CPT/HCPCS: 36415; 36416; 70450; 70496; 70498; 80048; 80053; 80061; 80306; 81003; 82962; 83036; 83735; 85025; 85610; 85730; 90935; 92507; 92523; 92526; 92610; 93005; 93306; 96372; 96374; 96376; 97110; 97116; 97161; 97166; 97530; 97535; 99285; J1644; J1815 ×2; J2405; Q9967

== ENCOUNTER 2020-12-01 14:06 | Outpatient (CLI) | payer OTHER, SELFPAY ==
--- NOTE | 2020-12-01 19:16 | ONC CON_ITS ---
Dr. Perry New Patient Note Patient: Veronika Burnette Unit #: [id number]: 1955 Dicatated By: Anoop Perry M.D.Date of Visit: Dec 01, 2020 Onc MED New Patient/Consult Referring Physician: Dr. Kirill Lema M.D. Chief Complaint: Squamous cell carcinoma of the right tonsil. 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 She had presented about a year ago with right neck mass. Her initial neck CT from 01/11/2020 showed a necrotic malignant appearing right submandibular space mass measuring 1.7 x 2.1 x 3.2 cm. A partially visualized area of heterogeneous enhancement in the right palatine tonsil fossa was noted to extend into the vallecula. It had associated right to left mass-effect on the adjacent pharynx. A few additional enlarged and enhancing right cervical chain lymph nodes were noted at level 2, level 3, and posterior triangle. There were additional prominent right supraclavicular and thoracic inlet lymph nodes. There were no definite enlarged left cervical lymph nodes. Enlarged lymph nodes were noted in the anterior mediastinum, largest measuring up to 13 mm, suspicious for metastatic disease. She apparently did have a biopsy of the right neck mass, but according to her son it showed no evidence of cancer. I do not have the actual report available. By September 2020 she is having episodes of vertigo associated with nausea/vomiting. She had ENT consultation with Dr. Bradshaw on 10/04/2020 and a repeat neck CT on 10/11/2020 showed increase in size of enhancing mass centered in the right palate teen tonsil extending into the right vallecula, measuring 2.4 x 1.0 x 2.7 cm. There was increase in the right submandibular space mass measuring 3.0 x 2.7 x 2.2 cm and development of a new necrotic lymph node at level 2A on the left measuring 1.0 cm. Subcentimeter mediastinal and hilar lymph nodes were again noted measuring up to 9 mm, smaller compared to the January 2020 study. On 10/19/2020 she underwent right tonsillectomy. Grossly the lesion appeared to incorporate the entire tonsil and it appeared to extend into the soft palate and uvula. The procedure included biopsy from the uvula. Pathology of the tonsil and on the biopsy from the uvula showed p16 positive poorly differentiated invasive squamous cell carcinoma. The tumor was tested for PD-L1 expression, and by the IHC 22C3 assay it was found to be positive at 30%. On 10/23/2020 she was admitted to the hospital with CT evidence of subacute ischemic infarct involving the inferolateral left cerebellum. She had presented with right-sided weakness, difficulty walking, dizziness, and vomiting. CT angiogram of the neck showed thrombus in the V4 segment of the left vertebral artery. There is also evidence for severe right carotid stenosis. She had been off aspirin and Plavix following the surgery, and those were restarted. At discharge she was transferred to the skilled nursing in [place], [place] where she also remained on DVT prophylaxis with low-dose, subcutaneous unfractionated heparin. She is seen now for further management of the tonsillar cancer. She says her energy is okay, she has very limited activity. She is doing some exercises with physical therapy, but she still has very limited ambulation. Her ECOG score is 3. She says her appetite is okay and her weight is stable. She does not have fever or night sweats. She has had no further episodes of nausea/dizziness, and she has noted improvement in her right-sided weakness. She currently is not having soreness in the mouth or throat, and she has no difficulty swallowing. She has no shortness of breath, cough, or chest pain. She has no GI or complaints, and she has no significant joint or bone pain. She does not complain of headache, and she is not having focal neurologic symptoms. Past Medical History: Her medical history includes coronary artery disease, depression, gastroesophageal reflux disease, hyperlipidemia, multiple cerbrovascular accidents, narcolepsy, type II diabetes, and vitamin D deficiency. She is known to have Factor V Leiden mutation. Past Surgical History: She underwent right tonsillectomy on 10/19/2020. Her other surgeries have been limited to tubal ligation and coronary artery bypass in 2010. Medications: Aspirin 81 1 (81 mg) Tablet, chewable Oral daily, Bisacodyl 1 (10 mg/30mL) Enema Rectal daily PRN, Cholecalciferol 1 (125 mcg ) Tablet Oral daily, Famotidine 1 (20 mg) Tablet Oral b.i.d., Folic Acid 1 (1 mg) Tablet Oral daily, glipiZIDE 1 (5 mg) Tablet Oral b.i.d., Heparin Sodium (Porcine) 1 mL (of 5000 Units/mL) Injection t.i.d., HumaLOG KwikPen (100 Units/mL) Subcutaneous Take as Directed, Lantus 15 Units (of 100 Units/mL) Subcutaneous at bedtime, Lexapro 1 (5 mg) Tablet Oral daily, metFORMIN HCl 1 (850 mg) Tablet Oral b.i.d., MiraLax 1 (17 ) Powder Oral daily, Plavix 1 (75 mg) Tablet Oral daily, Provigil 0.5 Tablet (of 100 mg) Oral daily, Repatha (140 mg/mL) Subcutaneous q 2 weeks Allergies: Atorvastatin Calcium, Beta Adrenergic Blockers, and Statins. Social History: Ms. Burnette is . She is a non-smoker. She does not drink alcohol. Family History: Father of pancreatic cancer at age 64. Mother is also , possibly also from pancreatic cancer. A brother of metastatic colon cancer at age 51. A sister was found to harbor the factor V Leiden mutation after presenting with stroke. Review Of Symptoms: Constitutional - She says her energy is okay, but she has very limited activity. Appetite also is okay, and her weight is stable. She does not have fever, night sweats, or hot flashes. ECOG score is 3, Eyes - No change in vision, ENMT - No hearing loss or tinnitus. No sinus congestion/drainage. She currently does not have sore mouth or throat and she has no difficulty swallowing, Hematologic/Lymphatic - No abnormal bruising or bleeding, Respiratory - No shortness of breath. No cough. No pleuritic pain or hemoptysis, Cardiovascular - No angina pain. No palpitations, Gastrointestinal - No nausea or vomiting. No heartburn or acid reflux. No diarrhea or constipation. No blood in the stool or black stools, Genitourinary (F) - No dysuria or hematuria. No urinary frequency. She has some urgency/incontinence, Musculoskeletal - No joint or bone pain, Integumentary - No skin rash or other skin changes, Neurologic - No headache. She has difficulty with balance, but the weakness on the right side has improved. No numbness or tingling. No other focal neurologic symptoms. She has problems with memory, Psychiatric - She has depression. She has excessive daytime somnolence. She sleeps okay at night. Vital Signs: Performed on Dec 01, 2020 14:59: 0, 25.46, 1.77 sq.m, 65 in, 97 %, 84 /min, 16 /min, 130/80 mm(hg), 98.0 F (LOW), and 153 lbs (HIGH). Physical Examination: Constitutional - She appears generally weak and she has a flat affect, Eyes - Sclerae nonicteric. Conjunctivae clear, ENMT - No lesions noted in the oral cavity, Neck - There is a large mass in the right submandibular area measuring approximately 4 cm in greatest dimension. There is a smaller mass in the jugulodigastric area on the left side. There is no thyromegaly noted, Hematologic/Lymphatic - No clavicular or axillary adenopathy noted, Respiratory - Lungs are clear with good air movement bilaterally, Cardiovascular - Heart rhythm is regular. There is no murmur, gallop, or rub noted. There is no carotid bruit noted, Abdomen - Soft. Liver and spleen are not enlarged. There is no abdominal mass or ascites noted and there is no inguinal adenopathy, Back/Spine - No spine or CVA tenderness noted, Extremities - No edema. Pedal pulses are palpable bilaterally, Integumentary - No rashes. No suspicious skin lesions noted, Neurologic - She does not appear to have any focal sensory or motor deficit. I did not attempt to evaluate her gait. Problem List: 1. Poorly differentiated squamous cell carcinoma involving the right tonsil, p16 positive and PD-L1 positive (30%). By clinical evaluation her disease is stage at least II (T3, N2, M0) and possibly stage IV (M1), depending on the status of mediastinal lymph nodes. She underwent right tonsillectomy on 10/19/2020. 2. She has history of multiple strokes, including a left cerebellar stroke following her tonsillectomy in October 2020. She has marginal performance status (ECOG 3). 3. She has CT evidence of right carotid stenosis. 4. Hyperlipidemia. 5. Type 2 diabetes which has not been well controlled. 6. Coronary artery disease with previous bypass surgery. 7. GERD. 8. Narcolepsy. 9. Depression. Problems Addressed with this Encounter and Plan: 1. 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 She underwent right tonsillectomy on 10/19/2020. By clinical evaluation her disease is stage at least II (T3, N2, M0) and possibly stage IV (M1), depending on the status of mediastinal lymph nodes. She has multiple underlying medical illnesses including a recent left cerebellar stroke, and she has poor performance status (ECOG 3). She does require additional staging evaluation because of the mediastinal lymph nodes which have been noted on her neck CT scans. I think the best choice would be a PET/CT, but that may be problematic due to her diabetes. If we can get her blood sugars controlled better within the next week or so, I will go ahead and get the PET/CT scheduled. If not, I will stage with contrast-enhanced chest CT and consider bronchoscopy/EBUS if the mediastinal lymph nodes have enlarged. Her treatment also may be problematic, as in her present condition she would really not be a suitable candidate for chemoradiation or for combination chemotherapy. With her tumor being PD-L1 positive at 30%, the best option may just be trial of immunotherapy with pembrolizumab. 2. Type 2 diabetes which has not been well controlled. Based on her most recent hemoglobin A1c level of 8.3%, I will increase her insulin glargine dosage to 20 units daily, and it will be further escalated as indicated. 3. She has narcolepsy and she continues to have significant daytime somnolence. As such, I will plan to increase her modafinil dosage to 100 mg daily. 4. She continues to have depression, and I also will increase her Lexapro dosage to 10 mg daily. Signed By: Anoop Perry M.D. <<Signature on File>>
== END 2020-12-01 14:07 | disposition home or self-care (01) ==
LOC: ONCMED 14:08
PROVIDERS: PCP Nurse Practitioner Family; Visit Provider Internal Medicine Medical Oncology
DX: C09.9 Malignant neoplasm of tonsil, unspecified (principal); I65.21 Occlusion and stenosis of right carotid artery; E78.5 Hyperlipidemia, unspecified; E11.59 Type 2 diabetes mellitus with other circulatory complications; I25.10 Atherosclerotic heart disease of native coronary artery without angina pectoris; Z95.5 Presence of coronary angioplasty implant and graft; K21.9 Gastro-esophageal reflux disease without esophagitis; G47.419 Narcolepsy without cataplexy; F32.9 Major depressive disorder, single episode, unspecified; Z86.73 Personal history of transient ischemic attack (TIA), and cerebral infarction without residual deficits; Z79.899 Other long term (current) drug therapy
CPT/HCPCS: 99205

== ENCOUNTER 2021-01-27 12:16 | Emergency (ER) | payer OTHER, SELFPAY ==
[2021-01-27 12:28] VITALS: BP 121/71; PULSE 85; RESP 16; TEMP 36.5; O2SAT 97; BMI 24.4
--- NOTE | 2021-01-27 12:32 | CT_ITS ---
WS: [id number] CT NECK WITH CONTRAST HISTORY: right tonsil cancer s/p surgery. bleeding from tonsil TECHNIQUE: Contiguous 5 mm axial images are performed through the neck with intravenous contrast. Sag ittal and coronal reformats are also submitted. All CT scans at [facility] use at least o ne of these dose optimization techniques: automated exposure control; mA and/or kV adjustment per pat ient size (includes targeted exams where dose is matched to clinical indication); or iterative recons truction. CONTRAST: CONTRAST: Omnipaque 300; 75 mL IV. DLP: 472.98 mGy.cm COMPARISON: 10/11/2020 Mildly increased size of the enhancing mass centered in the RIGHT lateral tongue base and extending i nto the RIGHT palatine tonsil. This mass measures 2.5 x 1.4 cm. As per history there was recent surge ry involving this mass. If this mass was recently removed this could be a hematoma at the surgical si te. Mass does appear to have slightly extended into the oral cavity along the RIGHT mylohyoid muscle. Mild extension of soft tissue into the RIGHT vallecula. Vocal cords are normal. No compromise of the oral cavity or nasopharynx. Again noted are necrotic bilateral level II lymph nodes. The largest lymph node on the RIGHT extends from level II into the submandibular space measuring 2.8 x 2.3 cm. Probably not significantly incre ased in size. LEFT level II lymph node has increased in size measuring 2.1 x 1.6 cm. There are additi onal smaller but numerous cervical chain lymph nodes extending into the supraclavicular fossa. Althou gh the additional lymph nodes are small they are rounded and mildly hypervascular. There is a new nec rotic lymph node with irregular wall just medial to the RIGHT sternocleidomastoid muscle with a maxim um diameter of 1.3 cm. Small caliber RIGHT vertebral artery. Carotid atherosclerosis. Visualized paranasal sinuses and mastoid air cells are normal. Lung apices are clear. CT/CT neck w con* [id number] IMPRESSION: 1. Enhancing mass centered at the RIGHT tongue base and palatine tonsil with m ild progression along the RIGHT mylohyoid muscle since the prior study. 2. No large area of hemorrhage or active bleeding is identified. 3. Bilateral necrotic cervical chain lymphadenopathy. Some of these lymph node s remain stable while there has been a slight increase in size and number of ad ditional lymph nodes.
[2021-01-27 12:36] VITALS: O2SAT 96
--- NOTE | 2021-01-27 13:13 | ED_ITS ---
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 She underwent a right tonsillectomy. Her post op care was complicated by a CVA. She is yet to have any treatment for her cancer other than surgery. This morning her home health nurse noticed that she was bleeding most likely from the right tonsillar mass. The patient states she was unaware of it. She denies any cough or vomiting. She denies any pain, denies any nausea or vomiting. She denies any dizziness. Vomiting has since stopped. She is unable to quantify how much blood she lost. Associated symptoms: Deny chest pain, confusion, cough, diaphoresis, decreased appetite, dyspnea, fevers/chills, headache(s), malaise, nausea, rash, palpitations, seizures, short of breath, syncope, vomiting or weakness Treatments prior to arrival: other (zofran) Review of Systems General: Reports: 10 or more systems reviewed and unremarkable except in HPI and below Const: Denies: malaise or diaphoresis Card: Denies: chest pain, palpitations or syncope Resp: Denies: dyspnea GI: Denies: nausea or vomiting Skin/Breast: Denies: rash Neuro: Denies: headache(s) or confusion PFS ED PFSH: Medical History CAD (coronary artery disease) CVA (cerebral vascular accident) Diabetes mellitus 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 stroke/+ mutation, no history of prior clotting, not been on anticoagulation for this Hyperlipidemia on Repatha, has been intolerant of statins Vitamin D deficiency Surgical History 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 Hx of tubal ligation S/P tonsillectomy (10/19/20) right tonsil due to malignancy, biopsy Family History Mother Hypertension Social History Smoking and tobacco status: never smoked Second hand smoke exposure: No Alcohol intake: never Lives independently: Yes Household members: none and other Details: recently had home health ordered Housing: House Marital status: / service: No Current occupational status: retired History of recent travel: No Current gender identity: Female Physical Exam Const: COMMON NORMALS: no acute distress, average body habitus, patient oriented x3, no limitations, healthy appearing, alert and well nourished HENMT: COMMON NORMALS: normocephalic, atraumatic and moist oral mucous membranes HEAD & SCALP: normocephalic and atraumatic OTHER: she has a clot around her right tonsil Neck/C-Spine: COMMON NORMALS: full ROM, supple, no meningeal signs, no JVD and No carotid bruits Resp: COMMON NORMALS: normal respiratory effort, No retractions, No use of accessory muscles, clear to auscultation bilaterally and percussion normal AUSCULTATION: clear to auscultation bilaterally PERCUSSION: percussion normal Cardio: COMMON NORMALS: no JVD, regular rate, regular rhythm, S1 normal heart sound present, S2 normal heart sound present, No gallops present (Cardio), No clicks present (Cardio), No murmurs present (Cardio), No rub (Cardio) and Peripheral pulses 2+ throughout RATE: regular rate RHYTHM: regular rhythm HEART SOUNDS: S1 normal heart sound present and S2 normal heart sound present PERIPHERAL PULSES: Peripheral pulses 2+ throughout GI: COMMON NORMALS: Normal to inspection, nondistended, normoactive bowel sounds present, Soft to palpation, non-tender, No hepatosplenomegaly present, no masses and no bruits PALPATION: Yes Soft to palpation and Yes No hepatosplenomegaly present Extremity: COMMON NORMALS: normal to inspection, full ROM, capillary refill normal, no calf tenderness and no pedal edema Neuro: COMMON NORMALS: patient oriented x3 SENSORIUM/ORIENTATION: Yes alert MENINGEAL SIGNS: Yes no meningeal signs Course Reevaluation(s): Reevaluation #1: Discussed her lab and imaging findings with her. Negative for acute findings. She has mild worsening of the right tonsillar mass. No episodes of bleeding throughout her ED stay. She only had one episode of bleeding today. A referral was made for the patient to get an appointment with oncology next week. She is discharged home with no new orders. She voiced understanding and is in agreement with the plan. Time: 15:53 Vital Signs: Vital signs: Vital Signs Temperature 97.7 F 01/27/21 12:28 Pulse Rate 83 01/27/21 16:08 Respiratory Rate 16 01/27/21 16:08 Blood Pressure 118/73 01/27/21 16:08 Pulse Oximetry 98 01/27/21 16:08 MDM - General Adult MDM Narrative: Medical decision making narrative: 65-year-old female patient with a right tonsillar squamous cell carcinoma. She was diagnosed sometime last year but has not received any treatment so far. Evaluation course has been complicated by acute CVA. She had an episode of vomiting from likely the right tonsil but there was only one episode and she has not had any repeat episodes. Hemoglobin is stable CT scan of the neck does not show any active bleeding but shows a new tonsillar mass is enlarging. She is discharged home and will be referred to the oncologist for further evaluation and management. Medical Records: Attestation: I reviewed the patient's medical records. Lab Data: Attestation: I reviewed the patient's lab results. Labs: Lab Results 01/27/21 01/27/21 01/27/21 Range/Units 13:18 13:18 13:18 WBC 9.1 (4.0-10.0) 10^3/ uL RBC 3.54 L (4.1-5.3) 10^6/u L Hgb 11.0 L (11.5-15.3) g/dL Hct 33.5 L (37.0-47.0) % MCV 94.6 (81-99) fL MCH 31.1 (28.0-34.0) pg MCHC 32.8 (30.0-36.0) g/dL RDW 12.7 (12.1-15.1) % Plt Count 315 (130-400) 10^3/c mm MPV 9.4 (7.4-10.4) fL Neut % (Auto) 73.3 % Lymph % (Auto) 19.5 % Morrow % (Auto) 5.6 % Eos % (Auto) 1.2 % Baso % (Auto) 0.2 % Neut # (Auto) 6.64 (1.8-7.7) 10^3/u L Lymph # (Auto) 1.8 (0.8-4.8) 10^3/u L Morrow # (Auto) 0.5 (0.2-0.9) 10^3/u L Eos # (Auto) 0.1 (0.0-0.8) 10^3/u L Baso # (Auto) 0.0 (0.0-0.1) 10^3/u L Nucleated RBC % (a uto) 0 % Nucleated RBCs # 0.0 /100WBC PT 13.50 (12.1-14.9) SECO NDS INR 1.00 (0.8-1.2) Sodium (136-145) mmol/L Potassium (3.5-5.1) mmol/L Chloride (98-107) mmol/L Carbon Dioxide (22-29) mmol/L Anion Gap (5-19) BUN (8-23) mg/dL Creatinine (0.5-0.9) mg/dL GFR Calculation (90-130) mL/min Glucose (65-115) mg/dL Calculated Osmolal ity (285-295) mOsm/k g Calcium (8.5-10.5) mg/dL Total Bilirubin (0.15-1.2) mg/dL AST (0-32) U/L ALT (0-33) U/L Alkaline Phosphata se (35-105) IU/L C-Reactive Protein (0.0-4.9) mg/L Total Protein (6.6-8.7) g/dL Albumin (3.5-5.2) g/dL Globulin (1.3-4.6) g/dL Blood Type O Positive Rho(D) Type Positive / 4+ Antibody Screen Negative 01/27/21 Range/Units 13:18 WBC (4.0-10.0) 10^3/ uL RBC (4.1-5.3) 10^6/u L Hgb (11.5-15.3) g/dL Hct (37.0-47.0) % MCV (81-99) fL MCH (28.0-34.0) pg MCHC (30.0-36.0) g/dL RDW (12.1-15.1) % Plt Count (130-400) 10^3/c mm MPV (7.4-10.4) fL Neut % (Auto) % Lymph % (Auto) % Morrow % (Auto) % Eos % (Auto) % Baso % (Auto) % Neut # (Auto) (1.8-7.7) 10^3/u L Lymph # (Auto) (0.8-4.8) 10^3/u L Morrow # (Auto) (0.2-0.9) 10^3/u L Eos # (Auto) (0.0-0.8) 10^3/u L Baso # (Auto) (0.0-0.1) 10^3/u L Nucleated RBC % (a uto) % Nucleated RBCs # /100WBC PT (12.1-14.9) SECO NDS INR (0.8-1.2) Sodium 143 (136-145) mmol/L Potassium 4.2 (3.5-5.1) mmol/L Chloride 105 (98-107) mmol/L Carbon Dioxide 26 (22-29) mmol/L Anion Gap 16.2 (5-19) BUN 27 H (8-23) mg/dL Creatinine 0.8 (0.5-0.9) mg/dL GFR Calculation 72.2 L (90-130) mL/min Glucose 261 H (65-115) mg/dL Calculated Osmolal ity 310 H (285-295) mOsm/k g Calcium 9.2 (8.5-10.5) mg/dL Total Bilirubin 0.2 (0.15-1.2) mg/dL AST 16 (0-32) U/L ALT 11 (0-33) U/L Alkaline Phosphata se 83 (35-105) IU/L C-Reactive Protein 13.2 H (0.0-4.9) mg/L Total Protein 6.7 (6.6-8.7) g/dL Albumin 3.9 (3.5-5.2) g/dL Globulin 2.8 (1.3-4.6) g/dL Blood Type Rho(D) Type Antibody Screen Imaging Data^: CT Chest: Attestation: I personally reviewed and interpreted this imaging study as follows: Radiologist's impression: [facility] [address], [place] [address]QF Scan ReportSigned Patient: Veronika Burnette #: [id number]: [id number]#:[id number]/Sex: 65 / FADM Date: 01/27/21Loc: ERRoom/Bed:Attending Dr: Ordering Provider/Ordering MD: Naila Quick [place] [facility] [place] Service: 01/27/21 Procedure(s): CT chest w con* [id number] Accession Number(s): [id number] Report Number: [id number] WS: [id number] CT CHEST WITH INTRAVENOUS CONTRAST HISTORY: tonsillar cancer, ?hemoptysis TECHNIQUE: Contiguous 5 mm axial imaging performed on the thorax. Coronal and sagittal reformats are submitted. All CT scans at [facility] use at least one of these dose optimization techniques: automated exposure control; mA and/or kV adjustment per patient size (includes targeted exams where dose is matched to clinical indication); or iterative reconstruction. CONTRAST: Omnipaque 300; 75 mL IV. DLP: 567.47 mGy.cm COMPARISON: None available. Lungs and central airway: 2 mm noncalcified nodule in the LEFT lower lobe, image 37 of series 3. No additional nodules or masses. No pneumonia. Pleura: Normal. No pleural effusion. Heart and pericardium: Mild enlargement of the LEFT heart chambers. No fusion. Prior CABG. Heavy calcification in the [place] coronary arteries. Mediastinum and cosme: 8 mm inferior RIGHT paratracheal lymph node. Additional smaller hilar lymph nodes. No adenopathy by criteria. Vessels: Moderate atherosclerosis of the aorta. No aneurysm. Intimal thickening and calcified plaque. Normal size pulmonary artery. Chest wall and lower neck: No soft tissue masses. Upper abdomen: Hepatic steatosis. Small hiatal hernia. No adrenal mass. Osseous structures: No osteoblastic or osteolytic bone disease. CT/CT chest w con* [id number] IMPRESSION: 1. 2 mm nodule LEFT lower lobe. Could be tested be a very early metastatic lesion. Recommend follow-up chest CT in 3-4 months. 2. Status post CABG and cardiomegaly. 3. No adenopathy in the mediastinum. Dictated By:Mouna Eagle DOSigned By:Mouna Eagle DOSigned Date/Time:01/27/21 1513DD/ [address]: Attestation: I personally reviewed and interpreted this imaging study as follows: Radiologist's impression: [facility] [address] [facility], [place] [address]IR Scan ReportSigned Patient: Veronika Burnette #: [id number]: [id number]#:[id number]/Sex: 65 / FADM Date: 01/27/21Loc: ERRoom/Bed:Attending Dr: Ordering Provider/Ordering MD: Naila Quick [place], [facility] [place] of Service: 01/27/21 Procedure(s): CT neck w con* [id number] Accession Number(s): [id number] Report Number: [id number] WS: [id number] CT NECK WITH CONTRAST HISTORY: right tonsil cancer s/p surgery. bleeding from tonsil TECHNIQUE: Contiguous 5 mm axial images are performed through the neck with intravenous contrast. Sagittal and coronal reformats are also submitted. All CT scans at [facility] use at least one of these dose optimization techniques: automated exposure control; mA and/or kV adjustment per patient size (includes targeted exams where dose is matched to clinical indication); or iterative reconstruction. CONTRAST: CONTRAST: Omnipaque 300; 75 mL IV. DLP: 472.98 mGy.cm COMPARISON: 10/11/2020 Mildly increased size of the enhancing mass centered in the RIGHT lateral tongue base and extending into the RIGHT palatine tonsil. This mass measures 2.5 x 1.4 cm. As per history there was recent surgery involving this mass. If this mass was recently removed this could be a hematoma at the surgical site. Mass does appear to have slightly extended into the oral cavity along the RIGHT mylohyoid muscle. Mild extension of soft tissue into the RIGHT vallecula. Vocal cords are normal. No compromise of the oral cavity or nasopharynx. Again noted are necrotic bilateral level II lymph nodes. The largest lymph node on the RIGHT extends from level II into the submandibular space measuring 2.8 x 2.3 cm. Probably not significantly increased in size. LEFT level II lymph node has increased in size measuring 2.1 x 1.6 cm. There are additional smaller but numerous cervical chain lymph nodes extending into the supraclavicular fossa. Although the additional lymph nodes are small they are rounded and mildly hypervascular. There is a new necrotic lymph node with irregular wall just medial to the RIGHT sternocleidomastoid muscle with a maximum diameter of 1.3 cm. Small caliber RIGHT vertebral artery. Carotid atherosclerosis. Visualized paranasal sinuses and mastoid air cells are normal. Lung apices are clear. CT/CT neck w con* [id number] IMPRESSION: 1. Enhancing mass centered at the RIGHT tongue base and palatine tonsil with mild progression along the RIGHT mylohyoid muscle since the prior study. 2. No large area of hemorrhage or active bleeding is identified. 3. Bilateral necrotic cervical chain lymphadenopathy. Some of these lymph nodes remain stable while there has been a slight increase in size and number of additional lymph nodes. Dictated By:Mouna Eagle DOSigned By:Mouna Eagle DOSigned Date/Time:01/27/21 1525 Discharge Plan Discharge Patient Disposition: Home Clinical Impression: Tonsillar neoplasm Condition: Stable Prescriptions: Continued metformin 1,000 mg tablet 1,000 mg PO BID RF: 0 aspirin [Adult Low Dose Aspirin] 81 mg tablet,delayed release (DR/EC) 162 mg PO DAILY RF: 0 clopidogrel [Plavix] 75 mg tablet 75 mg PO DAILY Qty: 90 RF: 0 escitalopram oxalate 5 mg tablet See Rx Instructions .ROUTE .COMPLEX Qty: 90 RF: 0 famotidine [Pepcid] 20 mg tablet 20 mg PO BID Qty: 180 RF: 0 Lantus Solostar U-100 Insulin 100 unit/mL (3 mL) insulin pen 10 unit SUBCUT DAILY 90 Days Qty: 15 RF: 0 ondansetron 4 mg tablet,disintegrating 4 mg PO TID PRN (Reason: nausea and vomiting) Qty: 30 RF: 0 ergocalciferol (vitamin D2) [Vitamin D2] 1,250 mcg (50,000 unit) capsule 1,250 mcg PO .weekly Qty: 12 RF: 0 tramadol 50 mg tablet 50 mg PO Q6H PRN (Reason: pain) Qty: 50 RF: 0 lisinopril 2.5 mg tablet 2.5 mg PO DAILY RF: 0 atorvastatin 40 mg Tablet 20 mg PO BEDTIME Qty: 30 RF: 0 Januvia 50 mg tablet 50 mg PO DAILY Qty: 30 RF: 0 Discharge Orders: Discharge ED (Routine); Ordered 01/27/21 Ordered By: Naila Quick Referrals: Johanne Morales FNP [Primary Care Provider] - 1-3 days Discharge Diet: Usual diet Discharge Activity: Resume usual activity Activity Restrictions/Additional Instructions: Return for any new or worsening symptoms. Since you had only one episode of bleeding, and it has since stopped. And throughout your emergency department stay there has been no bleeding, and CT scan showing no active bleeding and no airway compromise it is safe for you to go home. I have put in a referral for case management to schedule an appointment with Dr. Perry so he can start treatment as soon as possible. Follow-up with your primary care provider within 3 days. Continue home medications. Coding Level of Care Code ED Lidar Analyst for Chg Fwd Exam Detailed
[2021-01-27 13:31] LABS: Basophils % 0.2 %; Eosinophils # 0.1 10^3/uL (0.0-0.8); Eosinophils % 1.2 %; Hematocrit 33.5 % (37.0-47.0); Lymphocytes # 1.8 10^3/uL (0.8-4.8); Lymphocytes % 19.5 %; Mean Corpuscular HGB Conc 32.8 g/dL (30.0-36.0); Mean Corpuscular Hemoglobin 31.1 pg (28.0-34.0); Mean Corpuscular Volume 94.6 fL (81-99); Mean Platelet Volume 9.4 fL (7.4-10.4); Monocytes # 0.5 10^3/uL (0.2-0.9); Monocytes % 5.6 %; Neutrophils # 6.64 10^3/uL (1.8-7.7); Neutrophils % 73.3 %; Nucleated Red Blood Cells % 0 %; Platelet Count 315 10^3/cmm (130-400); Red Blood Count 3.54 10^6/uL (4.1-5.3); Red Cell Distribution Width 12.7 % (12.1-15.1); White Blood Count 9.1 10^3/uL (4.0-10.0)
[2021-01-27 13:51] LABS: Alanine Aminotransferase 11 U/L (0-33); Albumin Level 3.9 g/dL (3.5-5.2); Alkaline Phosphatase 83 IU/L (35-105); Anion Gap 16.2 (5-19); Aspartate Amino Transferase 16 U/L (0-32); Blood Urea Nitrogen 27 mg/dL (8-23); C Reactive Protein 13.2 mg/L (0.0-4.9); Calcium 9.2 mg/dL (8.5-10.5); Carbon Dioxide 26 mmol/L (22-29); Chloride 105 mmol/L (98-107); Globulin 2.8 g/dL (1.3-4.6); Glomerular Filtration Rate 72.2 mL/min (90-130); Glucose 261 mg/dL (65-115); Osmolality Calculated 310 mOsm/kg (285-295); Potassium 4.2 mmol/L (3.5-5.1); Sodium 143 mmol/L (136-145); Total Bilirubin 0.2 mg/dL (0.15-1.2); Total Protein 6.7 g/dL (6.6-8.7)
--- NOTE | 2021-01-27 14:05 | CT_ITS ---
WS: [id number] CT CHEST WITH INTRAVENOUS CONTRAST HISTORY: tonsillar cancer, ?hemoptysis TECHNIQUE: Contiguous 5 mm axial imaging performed on the thorax. Coronal and sagittal reformats are submitted. All CT scans at [facility] use at least one of these dose optimization techniq ues: automated exposure control; mA and/or kV adjustment per patient size (includes targeted exams wh ere dose is matched to clinical indication); or iterative reconstruction. CONTRAST: Omnipaque 300; 75 mL IV. DLP: 567.47 mGy.cm COMPARISON: None available. Lungs and central airway: 2 mm noncalcified nodule in the LEFT lower lobe, image 37 of series 3. No a dditional nodules or masses. No pneumonia. Pleura: Normal. No pleural effusion. Heart and pericardium: Mild enlargement of the LEFT heart chambers. No fusion. Prior CABG. Heavy calc ification in the [place] coronary arteries. Mediastinum and cosme: 8 mm inferior RIGHT paratracheal lymph node. Additional smaller hilar lymph nod es. No adenopathy by criteria. Vessels: Moderate atherosclerosis of the aorta. No aneurysm. Intimal thickening and calcified plaque. Normal size pulmonary artery. Chest wall and lower neck: No soft tissue masses. Upper abdomen: Hepatic steatosis. Small hiatal hernia. No adrenal mass. Osseous structures: No osteoblastic or osteolytic bone disease. CT/CT chest w con* [id number] IMPRESSION: 1. 2 mm nodule LEFT lower lobe. Could be tested be a very early metastatic les ion. Recommend follow-up chest CT in 3-4 months. 2. Status post CABG and cardiomegaly. 3. No adenopathy in the mediastinum.
[2021-01-27] MEDS: iohexol 300 mg/mL 100 mL Btl IV (14:46)
[2021-01-27 16:08] VITALS: BP 118/73; PULSE 83; RESP 16; O2SAT 98
--- NOTE | 2021-01-31 09:48 | PC.SOCIAL ---
Referral received for appt with Dr Orlando healy. Called office yesterday and she has an appt on 02/09/2021 and there is not an earlier appt available. Tried to reach patient yesterday to verify and remind her of this appt on multiple attempts but unable to reach. Called again this am unable to reach left message indicatiing date and time and would appreciate call back to verify she knows about appt.
--- NOTE | 2021-02-17 11:31 | DCPLANNER ---
Patient had a follow up appointment with Dr. Perry - patient did attend appointment.
== END 2021-01-27 16:20 | disposition home or self-care (01) ==
PROVIDERS: Emergency Provider Family Medicine; PCP Nurse Practitioner Family
DX: D49.0 Neoplasm of unspecified behavior of digestive system (principal); Z79.02 Long term (current) use of antithrombotics/antiplatelets; Z79.82 Long term (current) use of aspirin; Z79.4 Long term (current) use of insulin; I25.10 Atherosclerotic heart disease of native coronary artery without angina pectoris; Z86.73 Personal history of transient ischemic attack (TIA), and cerebral infarction without residual deficits; E11.9 Type 2 diabetes mellitus without complications; D68.51 Activated protein C resistance; E78.5 Hyperlipidemia, unspecified; Z95.1 Presence of aortocoronary bypass graft
CPT/HCPCS: 36415; 70491; 71260; 80053; 85025; 85610; 86140; 86850; 86900; 99283; Q9967

== ENCOUNTER 2021-02-09 14:22 | Outpatient (CLI) | payer OTHER, SELFPAY ==
[2021-02-09 15:19] LABS: Thyroid Stimulating Hormone 4.51 uIU/mL (0.27-4.20)
--- NOTE | 2021-02-12 13:36 | ONC CON_ITS ---
Dr. Perry New Patient Note Patient: Veronika Burnette Unit #: [id number]: 1955 Dicatated By: Anoop Perry M.D.Date of Visit: Feb 09, 2021 Onc MED New Patient/Consult Referring Physician: Dr. Kirill Lema M.D. Chief Complaint: Squamous cell carcinoma of the right tonsil. 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 She had presented about a year ago with right neck mass. Her initial neck CT from 01/11/2020 showed a necrotic malignant appearing right submandibular space mass measuring 1.7 x 2.1 x 3.2 cm. A partially visualized area of heterogeneous enhancement in the right palatine tonsil fossa was noted to extend into the vallecula. It had associated right to left mass-effect on the adjacent pharynx. A few additional enlarged and enhancing right cervical chain lymph nodes were noted at level 2, level 3, and posterior triangle. There were additional prominent right supraclavicular and thoracic inlet lymph nodes. There were no definite enlarged left cervical lymph nodes. Enlarged lymph nodes were noted in the anterior mediastinum, largest measuring up to 13 mm, suspicious for metastatic disease. She apparently did have a biopsy of the right neck mass, but according to her son it showed no evidence of cancer. I do not have the actual report available. By September 2020 she is having episodes of vertigo associated with nausea/vomiting. She had ENT consultation with Dr. Bradshaw on 10/04/2020 and a repeat neck CT on 10/11/2020 showed increase in size of enhancing mass centered in the right palate teen tonsil extending into the right vallecula, measuring 2.4 x 1.0 x 2.7 cm. There was increase in the right submandibular space mass measuring 3.0 x 2.7 x 2.2 cm and development of a new necrotic lymph node at level 2A on the left measuring 1.0 cm. Subcentimeter mediastinal and hilar lymph nodes were again noted measuring up to 9 mm, smaller compared to the January 2020 study. On 10/19/2020 she underwent right tonsillectomy. Grossly the lesion appeared to incorporate the entire tonsil and it appeared to extend into the soft palate and uvula. The procedure included biopsy from the uvula. Pathology of the tonsil and on the biopsy from the uvula showed p16 positive poorly differentiated invasive squamous cell carcinoma. The tumor was tested for PD-L1 expression, and by the IHC 22C3 assay it was found to be positive at 30%. On 10/23/2020 she was admitted to the hospital with CT evidence of subacute ischemic infarct involving the inferolateral left cerebellum. She had presented with right-sided weakness, difficulty walking, dizziness, and vomiting. CT angiogram of the neck showed thrombus in the V4 segment of the left vertebral artery. There is also evidence for severe right carotid stenosis. She had been off aspirin and Plavix following the surgery, and those were restarted. At discharge she was transferred to the senior care in [place], [place] where she also remained on DVT prophylaxis with low-dose, subcutaneous unfractionated heparin. I had seen her initially on 12/01/2020. She appeared very weak generally, and at the time she did not appear to be medically suitable for chemoradiation. I had recommended that she have further evaluation with staging PET/CT, though scheduling it was problematic due to her uncontrolled diabetes. I have eventually gave up on it and instead she had restaging CT scans of the neck and chest on 01/27/2021. Her neck CT showed enhancing mass centered in the right lateral tongue base and extending into the right palate teen tonsil. It measured 2.5 x 1.4 cm. It appeared to have slight extension into the oral cavity along the right mylohyoid muscle and there was mild extension into the right vallecula. She was again noted to have necrotic bilateral level 2 lymph nodes, with the largest on the right extending from level 2 into the submandibular space measuring 2.8 x 2.3 cm. It did not appear to have changed significantly. A left level 2 lymph node had increased in size measuring 2.1 x 1.6 cm. A new necrotic lymph node just medial to the right sternocleidomastoid muscle had a maximum diameter 1.[address] showed a 2 mm noncalcified nodule in the left lower lobe appeared indeterminate. There were no additional pulmonary nodules or masses noted. Also noted was an 8 mm inferior right paratracheal lymph node. There were additional smaller hilar nodes. She is seen today for a follow-up visit accompanied by her son. She continues to have very limited activity. She is able to ambulate very short distances with a walker. Her ECOG score is 3. Her appetite has been okay, she says she is able to swallow. Her weight is stable. She has no fever or night sweats. She has a little bit of sore mouth/throat. She has noted that her throat bleeds very easily. She is still on subcutaneous heparin injections prophylactically, usually twice a day. She has no shortness of breath, cough, or chest pain. She currently has no GI or complaints. She has no significant joint or bone pain. She does not complain of headache. She does have very poor balance. She has no numbness/paresthesia or other focal neurologic symptoms. She continues to have some depression and she also has excessive somnolence. She had been on treatment with modafinil when she was in the senior care, but that was not continued after discharge. Past Medical History: Her medical history includes coronary artery disease, depression, gastroesophageal reflux disease, hyperlipidemia, multiple cerbrovascular accidents, narcolepsy, type II diabetes, and vitamin D deficiency. She is known to have Factor V Leiden mutation. Past Surgical History: She underwent right tonsillectomy on 10/19/2020. Her other surgeries have been limited to tubal ligation and coronary artery bypass in 2010. Medications: Aspirin 81 1 (81 mg) Tablet, chewable Oral daily, Bisacodyl 1 (10 mg/30mL) Enema Rectal daily PRN, Cholecalciferol 1 (125 mcg ) Tablet Oral daily, Famotidine 1 (20 mg) Tablet Oral b.i.d., Folic Acid 1 (1 mg) Tablet Oral daily, glipiZIDE 1 (5 mg) Tablet Oral b.i.d., Heparin Sodium (Porcine) 1 mL (of 5000 Units/mL) Injection t.i.d., HumaLOG KwikPen (100 Units/mL) Subcutaneous Take as Directed, Lantus 20 Units (of 100 Units/mL) Subcutaneous at bedtime, Lexapro 1 (5 mg) Tablet Oral daily, metFORMIN HCl 1 (850 mg) Tablet Oral b.i.d., MiraLax 1 (17 ) Powder Oral daily, Plavix 1 (75 mg) Tablet Oral daily, Provigil 0.5 Tablet (of 100 mg) Oral daily, Repatha (140 mg/mL) Subcutaneous q 2 weeks Allergies: Atorvastatin Calcium, Beta Adrenergic Blockers, and Statins. Social History: Ms. Burnette is . She is a non-smoker. She does not drink alcohol. Family History: Father of pancreatic cancer at age 64. Mother is also , possibly also from pancreatic cancer. A brother of metastatic colon cancer at age 51. A sister was found to harbor the factor V Leiden mutation after presenting with stroke. Vital Signs: Performed on Feb 09, 2021 16:06: 9, 0, 24.80, 1.75 sq.m, 65.00 in, 97 %, 103 /min (HIGH), 18 /min, 94/65 mm(hg), 96.9 F (LOW), and 149 lbs (LOW). Physical Examination: Constitutional - She appears generally weak. She has a flat affect, Eyes - Sclerae nonicteric. Conjunctivae clear, ENMT - There is enlargement of the right tonsil., Neck - There is a mass on the right side of the neck which measures in the range of 5 cm, Hematologic/Lymphatic - No clavicular or axillary adenopathy noted, Respiratory - Lungs are clear with good air movement bilaterally, Cardiovascular - Heart rhythm is regular. There is no murmur, gallop, or rub noted, Abdomen - Soft. Liver and spleen are not enlarged. There is no abdominal mass or ascites noted and there is no inguinal adenopathy, Extremities - No edema, Neurologic - She does not appear to have any focal neurologic deficit, I again did not attempt to evaluate her gait. Lab/Imaging: CBC shows hemoglobin 11.0 g, white blood cell count 9100, and platelet count 315,000. Comprehensive metabolic profile shows normal renal function with BUN 27 and creatinine 0.8 mg/dL. Bilirubin and liver enzymes are normal. The nonfasting blood sugar is elevated at 261 mg/dL. Problem List: 1. Poorly differentiated squamous cell carcinoma involving the right tonsil, p16 positive and PD-L1 positive (30%). By clinical evaluation her disease is stage at least II (T3, N2, M0) and possibly stage IV (M1), depending on the status of mediastinal lymph nodes. She underwent right tonsillectomy on 10/19/2020. 2. She has history of multiple strokes, including a left cerebellar stroke following her tonsillectomy in October 2020. She has marginal performance status (ECOG 3). 3. She has CT evidence of right carotid stenosis. 4. Hyperlipidemia. 5. Type 2 diabetes which has not been well controlled. 6. Coronary artery disease with previous bypass surgery. 7. GERD. 8. Narcolepsy. 9. Depression. Problems Addressed with this Encounter and Plan: 1. 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 She underwent right tonsillectomy on 10/19/2020. By clinical evaluation her disease is stage at least II (T3, N2, M0) and possibly stage IV (M1), depending on the status of mediastinal lymph nodes. She has multiple underlying medical illnesses including a recent left cerebellar stroke, and she has poor performance status (ECOG 3). She does require additional staging evaluation because of the mediastinal lymph nodes which have been noted on her neck CT scans. I think the best choice would be a PET/CT, but that may be problematic due to her diabetes. If we can get her blood sugars controlled better within the next week or so, I will go ahead and get the PET/CT scheduled. If not, I will stage with contrast-enhanced chest CT and consider bronchoscopy/EBUS if the mediastinal lymph nodes have enlarged. At her initial visit she had poor performance status and she did not appear to be medically suitable for chemoradiation or for combination chemotherapy. With her tumor being PD-L1 positive at 30%, I thought it might be best to give her a trial of immunotherapy with pembrolizumab. This since then, she has improved somewhat, though she still has very limited activity. As her staging CT scans show fairly minimal interval disease progression in the oropharynx and neck and no obvious metastatic disease, I do want to reconsider her treatment options. Radiation concurrently with weekly cisplatin chemotherapy may be an option if she is able to get here daily for radiation treatments. Another option would be to give her an initial trial of chemotherapy with single agent Abraxane and perhaps follow that up with immunotherapy, depending on how she responds. At least initially, I am going to review the CT scans with Dr. Ren, and in the meantime she and her son will have to decide if they want to try to attempt the radiation. 2. She has narcolepsy and she continues to have significant daytime somnolence. I will restart her modafinil dosage at 100 mg daily, subject to verification of insurance coverage. Signed By: Anoop Perry M.D. <<Signature on File>>
== END 2021-02-09 14:23 | disposition home or self-care (01) ==
LOC: ONCMED 14:28
PROVIDERS: PCP Nurse Practitioner Family; Visit Provider Internal Medicine Medical Oncology
DX: C09.9 Malignant neoplasm of tonsil, unspecified (principal); Z86.73 Personal history of transient ischemic attack (TIA), and cerebral infarction without residual deficits; I65.21 Occlusion and stenosis of right carotid artery; E78.5 Hyperlipidemia, unspecified; E11.9 Type 2 diabetes mellitus without complications; I25.10 Atherosclerotic heart disease of native coronary artery without angina pectoris; Z95.5 Presence of coronary angioplasty implant and graft; K21.9 Gastro-esophageal reflux disease without esophagitis; G47.419 Narcolepsy without cataplexy; F32.9 Major depressive disorder, single episode, unspecified; Z79.811 Long term (current) use of aromatase inhibitors; Z79.899 Other long term (current) drug therapy
CPT/HCPCS: 36415; 84443; 99215